=== PATIENT | female | born 1985 | race Caucasian/White ===

== ENCOUNTER 2017-12-11 18:55 | Emergency (ER) | payer SELFPAY ==
[2017-12-11 18:58] VITALS: BP 140/85; PULSE 59; RESP 14; TEMP 36.6; O2SAT 99
--- NOTE | 2017-12-11 19:13 | ED.HA ---
HPI - Headache <Kandi Sarabia PA-C - Last Filed: 12/11/17 22:22> General Chief Complaint: Headache Stated Complaint: MIGRAINE Time Seen by Provider: 12/11/17 19:08 Source: patient Mode of arrival: ambulatory Limitations: no limitations History of Present Illness HPI Narrative: This 32-year-old female comes in due to intractable migraine headache. She states that this started about a week ago, usually can take Excedrin migraine and ibuprofen and function see says, but this has gradually gotten worse to the point that she can do daily activities now, has started to have blurred vision which she states typically triggers her to come into the ED. She states she has light sensitivity and sound sensitivity. She had some vomiting yesterday, none today, but has persistent nausea and has not eaten today due to this. She states her headache is bilateral, a little bit more noticeable on the left. She states this is typical of her severe migraine. She denies any recent fever, head trauma or illness. States that she has a little bit of sinus congestion typical of her allergies but no other new symptoms with this. She denies any possibility of stating she is reliable with her OCP and just started her new pack 2 days ago Related Data Previous Rx's Medication Instructions Recorded amoxicillin-pot clavulanate 875 mg PO BID #20 tab 03/07/17 [Augmentin] Allergies Allergy/AdvReac Type Severity Reaction Status Date / Time promethazine [From PHENERGAN] Allergy Unknown Verified 12/11/17 20:36 anti-nausea medications Allergy Unknown Uncoded 12/11/17 20:36 Review of Systems <Kandi Sarabia PA-C - Last Filed: 12/11/17 22:22> Review of Systems All systems reviewed & are unremarkable except as noted in HPI and below Exam <Kandi Sarabia PA-C - Last Filed: 12/11/17 22:22> Narrative Exam Narrative: GENERAL APPEARANCE: Patient resting in a dark room comfortably, in no distress. HEENT: PERRL, EOMI, normal TMs and oropharynx NECK: Supple, no masses LUNGS: Clear to auscultation bilaterally. HEART: Rate and rhythm regular without murmur, normal S1 and S2, no S3 or S4. NEUROLOGIC: Alert and oriented, normal speech and coordination. MUSCULOSKELETAL: Full Csp AROM Initial Vital Signs Initial Vital Signs: Vital Signs Temperature 97.8 F 12/11/17 18:58 Pulse Rate 59 L 12/11/17 18:58 Respiratory Rate 14 12/11/17 18:58 Blood Pressure 140/85 H 12/11/17 18:58 Pulse Oximetry 99 12/11/17 18:58 <Jamari Triana MD - Last Filed: 12/12/17 06:58> Initial Vital Signs Initial Vital Signs: Vital Signs Temperature 97.8 F 12/11/17 18:58 Pulse Rate 59 L 12/11/17 18:58 Respiratory Rate 14 12/11/17 18:58 Blood Pressure 140/85 H 12/11/17 18:58 Pulse Oximetry 99 12/11/17 18:58 Course <Kandi Sarabia PA-C - Last Filed: 12/11/17 22:22> Additional Information: Patient is feeling much improved in terms of nausea and headache prior to her departure and feels like she will be able to rest comfortably Orders Ordered: Discontinued Medications Acetaminophen (Tylenol) 650 mg PO NOW ONE Stop: 12/11/17 20:21 Last Admin: 12/11/17 20:40 Dose: 650 mg Sodium Chloride (Normal Saline 0.9%) 1,000 mls @ 1,000 mls/hr IV BOLUS ONE Stop: 12/11/17 20:25 Last Infusion: 12/11/17 21:12 Dose: 0 mls/hr Admin: 12/11/17 19:45 Dose: 1,000 mls/hr Ketorolac Tromethamine (Toradol) 30 mg IV NOW ONE Stop: 12/11/17 19:27 Last Admin: 12/11/17 19:46 Dose: 30 mg Metoclopramide HCl (Reglan) 10 mg IV NOW ONE Stop: 12/11/17 19:27 Last Admin: 12/11/17 19:46 Dose: 10 mg Tramadol HCl (Ultram) 50 mg PO NOW ONE Stop: 12/11/17 20:21 Last Admin: 12/11/17 20:40 Dose: 50 mg Vital Signs - 8 hr 12/11/17 18:58 12/11/17 22:03 Temperature 97.8 F Pulse Rate 59 L 66 Respiratory Rate 14 16 Blood Pressure 140/85 H 142/88 H Pulse Oximetry 99 99 <Jamari Triana MD - Last Filed: 12/12/17 06:58> Orders Ordered: Discontinued Medications Acetaminophen (Tylenol) 650 mg PO NOW ONE Stop: 12/11/17 20:21 Last Admin: 12/11/17 20:40 Dose: 650 mg Sodium Chloride (Normal Saline 0.9%) 1,000 mls @ 1,000 mls/hr IV BOLUS ONE Stop: 12/11/17 20:25 Last Infusion: 12/11/17 21:12 Dose: 0 mls/hr Admin: 12/11/17 19:45 Dose: 1,000 mls/hr Ketorolac Tromethamine (Toradol) 30 mg IV NOW ONE Stop: 12/11/17 19:27 Last Admin: 12/11/17 19:46 Dose: 30 mg Metoclopramide HCl (Reglan) 10 mg IV NOW ONE Stop: 12/11/17 19:27 Last Admin: 12/11/17 19:46 Dose: 10 mg Tramadol HCl (Ultram) 50 mg PO NOW ONE Stop: 12/11/17 20:21 Last Admin: 12/11/17 20:40 Dose: 50 mg Vital Signs - 8 hr 12/11/17 18:58 12/11/17 22:03 Temperature 97.8 F Pulse Rate 59 L 66 Respiratory Rate 14 16 Blood Pressure 140/85 H 142/88 H Pulse Oximetry 99 99 Discharge Plan Departure Patient Disposition: Home, Self-Care Clinical Impression: Headache, migraine Discharge Date/Time: 12/11/17 22:05 Interventions: ED Discharge Assessment Last Done: 12/11/17 22:03 Instructions: DI for Migraine Activity Restrictions/Additional Instructions: Return if you have acutely worsening or new symptoms, otherwise please rest in a quiet dark place until your symptoms are better. Continue your usual medicines Prescriptions: No Action amoxicillin-pot clavulanate [Augmentin] 875 MG/125 MG tablet 875 mg PO BID Qty: 20 RF: 0 <Jamari Triana MD - Last Filed: 12/12/17 06:58> Cosign ED Attending Cosignature Attestation: I was present in the ER at the time of this patient's care, I was available for consultation or to see the patient if need be. I agree with the content of the medical record and the disposition.
[2017-12-11] MEDS: SODIUM CHLORIDE 0.9% 1,000 ML 1000 ML IV (19:45)
[2017-12-11] MEDS: KETOROLAC 60 MG/2 ML VIAL 30 MG IV (19:46)
[2017-12-11] MEDS: METOCLOPRAMIDE 10 MG/2 ML INJ IV (19:46)
--- NOTE | 2017-12-11 19:59 | PC.NURSE ---
pt is calm and cooperative in a darkened room supine on stretcher with sun glasses on. Mother at bedside. Pt reports a headache starting a week ago. reports stressors i her life causing headache. pt denies sob, chest pain, weakness, vomiting. pt requested and given ice pack for head/back of neck.
[2017-12-11] MEDS: TRAMADOL 50 MG TABLET PO (20:40)
[2017-12-11] MEDS: ACETAMINOPHEN 325 MG TABLET 650 MG PO (20:40)
--- NOTE | 2017-12-11 21:24 | PC.NURSE ---
pt reports forgetting to tell staff she is allergic to tape. reports tegaderm starting to itch. provider notified. verbal order recieved for IV dc. gauze and coban applied to IV site. no redness or lesions noted before coban placed.
[2017-12-11 22:03] VITALS: BP 142/88; PULSE 66; RESP 16; O2SAT 99
== END 2017-12-11 22:05 | disposition home or self-care (01) ==
PROVIDERS: Emergency Provider Internal Medicine
DX: G43.909 Migraine, unspecified, not intractable, without status migrainosus (principal)
CPT/HCPCS: 96361; 96374; 96375; 99283; 99284; J1885; J2765

== ENCOUNTER 2018-04-16 16:03 | Emergency (ER) | payer SELFPAY ==
[2018-04-16 16:07] VITALS: BP 132/82; PULSE 64; RESP 20; TEMP 36.8; O2SAT 100
--- NOTE | 2018-04-16 16:11 | DI.RAD.S_ITS ---
PROCEDURE: XR KNEE LT 3V INDICATIONS: GLF TECHNIQUE: 3 views of the knee were acquired. COMPARISON: [facility], CR, XR ANKLE LT MIN 3V, 04/16/2018, 16:15. FINDINGS: Bones: No fractures or dislocations. No suspicious bony lesions. Soft tissues: No joint effusion. No suspicious soft tissue calcifications. IMPRESSION: Normal knee plain films. Dictated by: Elier Monterroso M.D. on 04/16/2018 at 15:27 Approved by: Elier Monterroso M.D. on 04/16/2018 at 15:28
--- NOTE | 2018-04-16 16:11 | DI.RAD.S_ITS ---
PROCEDURE: XR ANKLE LT MIN 3V INDICATIONS: medial ankle pain TECHNIQUE: 3 views of the ankle were acquired. COMPARISON: None. FINDINGS: Bones: On the lateral view, there can be seen a mildly displaced fracture of the navicular bone. This is poorly localized on the other 2 images. No additional bony injury is seen. The talar dome demonstrates no robe abnormality. No suspicious lytic or blastic lesions are seen. Small plantar and Achilles calcaneal spurs are seen. Soft tissues: No tibiotalar joint effusion. Achilles tendon appears normal. IMPRESSION: Apparent mildly displaced fracture of the navicular bone seen on one image. Please correlate with focal tenderness. If it would be helpful for clinical management decision making, please consider a dedicated ankle CT for further evaluation. Dictated by: Elier Monterroso M.D. on 04/16/2018 at 15:25 Approved by: Elier Monterroso M.D. on 04/16/2018 at 15:27
--- NOTE | 2018-04-16 17:14 | ED.LOWEXIN ---
HPI - Extremity Injury (Lower) <SHIMON Coffey - Last Filed: 04/16/18 22:05> General Chief Complaint: Extremity Injury, Lower Stated Complaint: FELL LEFT KNEE AND ANKLE PAIN Time Seen by Provider: 04/16/18 16:51 Source: patient Mode of arrival: wheelchair Limitations: no limitations History of Present Illness HPI Narrative: 33-year-old female with history of migraines that is an everyday smoker here for complaint of pain to her left knee and her left ankle. She states that she was walking up her driveway and was stepped onto her porch that has a small left and caudate with her left foot causing her to have ground level fall. She reports she thinks she rolled her left ankle and may have twisted her left knee. She reports swelling to the left ankle and also left knee. Increased pain with weight-bearing. She denies any other injuries at this timeframe. Denies any other complaints. Related Data Previous Rx's Medication Instructions Recorded hydrocodone-acetaminophen [[place]] 1 tab PO Q6H PRN #15 tab 04/16/18 Allergies Allergy/AdvReac Type Severity Reaction Status Date / Time promethazine [From PHENERGAN] Allergy Unknown Anxiety Verified 04/16/18 17:27 anti-nausea medications Allergy Unknown Uncoded 12/11/17 20:36 Review of Systems <SHIMON Coffey - Last Filed: 04/16/18 22:05> Constitutional Denies chills, Denies fever(s), Denies lethargy and Denies weakness Eyes Denies change in vision, Denies eye discharge, Denies irritation and Denies loss of vision ENT Ears, Nose, Mouth, and Throat: Denies change in voice, Denies neck pain and Denies sore throat Cardiovascular Denies chest pain, Denies irregular heart rhythm, Denies lightheadedness, Denies palpitations, Denies dyspnea, Denies dyspnea on exertion and Denies orthopnea Respiratory Denies cough, Denies dyspnea, Denies dyspnea on exertion and Denies wheezing Gastrointestinal Gastrointestinal: Denies abdominal pain, Denies change in bowel habits, Denies diarrhea, Denies nausea and Denies vomiting Genitourinary Denies hematuria, Denies flank pain, Denies urinary incontinence and Denies urinary urgency Musculoskeletal Denies neck pain Comments: Left knee and ankle pain Integumentary/Breasts Denies pruritus, Denies erythema, Denies rash and Denies wounds Neurologic Denies confusion, Denies loss of vision and Denies weakness Psychiatric Denies anxiety, Denies confusion, Denies depression, Denies homicidal ideation and Denies suicidal ideation Endocrine Denies palpitations Hematologic/Lymphatic Denies easy bruising Allergic/Immunologic Denies wheezing Exam <SHIMON Coffey - Last Filed: 04/16/18 22:05> Initial Vital Signs Initial Vital Signs: Vital Signs Temperature 98.2 F 04/16/18 16:07 Pulse Rate 64 04/16/18 16:07 Respiratory Rate 20 04/16/18 16:07 Blood Pressure 132/82 04/16/18 16:07 Pulse Oximetry 100 04/16/18 16:07 Const General: cooperative and well developed Nutritional Appearance: well nourished Orientation: alert, awake, oriented x3 and not confused HENMT Mouth: oral mucosae normal and moist mucous membranes Eyes Conjunctivae: conjunctivae normal Sclera: sclerae normal Pupils: PERRL EOM: EOM intact bilaterally Resp Effort & Inspection: normal respiratory effort, able to speak in complete sentences, no respiratory distress and no use of accessory muscles Auscultation: clear to auscultation bilaterally, no rales, no rhonchi and no wheezes Cardio Rate: regular rate Rhythm: regular rhythm Heart Sounds: no click, no gallops, no murmurs and no rubs Skin General: no rashes or lesions noted, No jaundice and No petechiae Neuro General: alert, oriented x3, gait normal and no focal motor deficits Speech: speech normal Extrem Other: Left knee with tenderness mostly to the medial aspect of the left knee. Slight amount of swelling. No ecchymosis. No deformities. Negative anterior-posterior drawer sign. Negative varus and valgus stress test. Left ankle with swelling and tenderness over the dorsal medial aspect of the left ankle. Slight amount ecchymosis. No deformities. No open lesions. Distal sensation is intact. Distal pulses are intact. Distal range of motion is intact. <Tato Jama DO - Last Filed: 04/17/18 00:07> Initial Vital Signs Initial Vital Signs: Vital Signs Temperature 98.2 F 04/16/18 16:07 Pulse Rate 64 04/16/18 16:07 Respiratory Rate 20 04/16/18 16:07 Blood Pressure 132/82 04/16/18 16:07 Pulse Oximetry 100 04/16/18 16:07 Course <SHIMON Coffey - Last Filed: 04/16/18 22:05> Orders Ordered: ED Orders 04/16/18 16:11 XR ankle LT min 3V Stat XR knee LT 3V Stat Discontinued Medications Hydrocodone Bitart/Acetaminophen ([place] 5/325) 1 tab PO NOW ONE Stop: 04/16/18 17:29 Last Admin: 04/16/18 17:56 Dose: 1 tab Ondansetron HCl (Zofran Odt) 4 mg PO NOW ONE Stop: 04/16/18 17:26 Last Admin: 04/16/18 17:27 Dose: 4 mg Vital Signs - 8 hr 04/16/18 19:00 Pulse Rate 50 L Respiratory Rate 16 Blood Pressure 124/70 Pulse Oximetry 100 <Tato Jama DO - Last Filed: 04/17/18 00:07> Orders Ordered: ED Orders 04/16/18 16:11 XR ankle LT min 3V Stat XR knee LT 3V Stat Discontinued Medications Hydrocodone Bitart/Acetaminophen ([place] 5/325) 1 tab PO NOW ONE Stop: 04/16/18 17:29 Last Admin: 04/16/18 17:56 Dose: 1 tab Ondansetron HCl (Zofran Odt) 4 mg PO NOW ONE Stop: 04/16/18 17:26 Last Admin: 04/16/18 17:27 Dose: 4 mg Vital Signs - 8 hr 04/16/18 19:00 Pulse Rate 50 L Respiratory Rate 16 Blood Pressure 124/70 Pulse Oximetry 100 MDM - Extremity Injury (Lower) <SHIMON Coffey - Last Filed: 04/16/18 22:05> Imaging Data Left knee : Radiologist's impression: [address] [address] XRay Report Signed Patient: Charmaine Lindquist [facility]#: [id number] : 1985Acct:[id number] Age/Sex: 33 / FDate of Service: 04/16/18 Loc: ED Accession Number: [id number] Procedure: XR knee LT 3V Ordering Provider: Meme Atkins MD PROCEDURE: XR KNEE LT 3V INDICATIONS: GLF TECHNIQUE: 3 views of the knee were acquired. COMPARISON: [facility], CR, XR ANKLE LT MIN 3V, 04/16/2018, 16:15. FINDINGS: Bones: No fractures or dislocations. No suspicious bony lesions. Soft tissues: No joint effusion. No suspicious soft tissue calcifications. IMPRESSION: Normal knee plain films. Dictated by: Elier Monterroso M.D. on 04/16/2018 at 15:27 Approved by: Elier Monterroso M.D. on 04/16/2018 at 15:28 Left ankle : Radiologist's impression: XRay Report Signed Patient: Charmaine Lindquist [facility]#: [id number] : 1985Acct:[id number] Age/Sex: 33 / FDate of Service: 04/16/18 Loc: ED Accession Number: [id number] Procedure: XR ankle LT min 3V Ordering Provider: Meme Atkins MD PROCEDURE: XR ANKLE LT MIN 3V INDICATIONS: medial ankle pain TECHNIQUE: 3 views of the ankle were acquired. COMPARISON: None. FINDINGS: Bones: On the lateral view, there can be seen a mildly displaced fracture of the navicular bone. This is poorly localized on the other 2 images. No additional bony injury is seen. The talar dome demonstrates no robe abnormality. No suspicious lytic or blastic lesions are seen. Small plantar and Achilles calcaneal spurs are seen. Soft tissues: No tibiotalar joint effusion. Achilles tendon appears normal. IMPRESSION: Apparent mildly displaced fracture of the navicular bone seen on one image. Please correlate with focal tenderness. If it would be helpful for clinical management decision making, please consider a dedicated ankle CT for further evaluation. Dictated by: Elier Monterroso M.D. on 04/16/2018 at 15:25 Approved by: Elier Monterroso M.D. on 04/16/2018 at 15:27 [facility] Narrative Medical decision making narrative: X-ray the left knee was obtained was negative for any acute fractures or dislocations. Signs symptoms presents as a sprain to the left knee. She is placed in a knee brace and crutches for nonweightbearing. Left ankle x-ray shows findings consistent with fracture to the left navicular bone patient is tender to the dorsal/medial aspect of left ankle. She is placed in a posterior splint. Discussed case with Dr. Choi orthopedics who will follow up with patient next week. Patient to call their office tomorrow to schedule follow-up appointment. [id number] Tylenol or Motrin as needed for any discomfort. Ice and elevation help with any swelling. [place] is prescribed for breakthrough pain. For any worsening symptoms return to the emergency room. Discharge Plan Departure Patient Disposition: Home Clinical Impression: Left knee sprain, Ankle fracture, left Discharge Date/Time: 04/16/18 19:02 Interventions: ED Discharge Assessment Last Done: 04/16/18 19:00 Instructions: DI for Ankle Fracture Activity Restrictions/Additional Instructions: X-ray the left knee was obtained and was negative for any fractures or dislocations. Signs and symptoms presents as a sprain to the left knee. X-ray the left ankle was obtained and shows a possible fracture to the left ankle. You have been placed in a splint and a knee immobilizer use as directed for comfort and support. Year provided with crutches for nonweightbearing. Call Orthopedics office tomorrow to schedule follow-up appointment. Use [id number] Tylenol or Motrin as needed for any discomfort. [place] is prescribed for any breakthrough pain also use as directed. No driving while on the [place]. For any worsening symptoms return to the emergency room. Prescriptions: New hydrocodone-acetaminophen [[place]] 5-325 mg tablet 1 tab PO Q6H PRN (Reason: pain) Qty: 15 RF: 0 Referrals: Jeffrey Choi MD [Physician] - Stand Alone Forms: Work/School Restrictions <Tato Jama DO - Last Filed: 04/17/18 00:07> [facility] ED Attending Grisel Attestation: I was immediately available in the department for consultation. Documentation has been reviewed. I agree with assessment and plan.
[2018-04-16] MEDS: ONDANSETRON 4 MG ODT PO (17:27)
--- NOTE | 2018-04-16 17:29 | ED_ITS ---
HPI - Extremity Injury (Lower) <SHIMON Coffey - Last Filed: 04/16/18 22:05> General Chief Complaint: Extremity Injury, Lower Stated Complaint: FELL LEFT KNEE AND ANKLE PAIN Time Seen by Provider: 04/16/18 16:51 Source: patient Mode of arrival: wheelchair Limitations: no limitations History of Present Illness HPI Narrative: 33-year-old female with history of migraines that is an everyday smoker here for complaint of pain to her left knee and her left ankle. She states that she was walking up her driveway and was stepped onto her porch that has a small left and caudate with her left foot causing her to have ground level fall. She reports she thinks she rolled her left ankle and may have twisted her left knee. She reports swelling to the left ankle and also left knee. Increased pain with weight-bearing. She denies any other injuries at this timeframe. Denies any other complaints. Related Data Previous Rx's Medication Instructions Recorded hydrocodone-acetaminophen [[place]] 1 tab PO Q6H PRN #15 tab 04/16/18 Allergies Allergy/AdvReac Type Severity Reaction Status Date / Time promethazine [From PHENERGAN] Allergy Unknown Anxiety Verified 04/16/18 17:27 anti-nausea medications Allergy Unknown Uncoded 12/11/17 20:36 Review of Systems <SHIMON Coffey - Last Filed: 04/16/18 22:05> Constitutional Denies chills, Denies fever(s), Denies lethargy and Denies weakness Eyes Denies change in vision, Denies eye discharge, Denies irritation and Denies loss of vision ENT Ears, Nose, Mouth, and Throat: Denies change in voice, Denies neck pain and Denies sore throat Cardiovascular Denies chest pain, Denies irregular heart rhythm, Denies lightheadedness, Denies palpitations, Denies dyspnea, Denies dyspnea on exertion and Denies orthopnea Respiratory Denies cough, Denies dyspnea, Denies dyspnea on exertion and Denies wheezing Gastrointestinal Gastrointestinal: Denies abdominal pain, Denies change in bowel habits, Denies diarrhea, Denies nausea and Denies vomiting Genitourinary Denies hematuria, Denies flank pain, Denies urinary incontinence and Denies urinary urgency Musculoskeletal Denies neck pain Comments: Left knee and ankle pain Integumentary/Breasts Denies pruritus, Denies erythema, Denies rash and Denies wounds Neurologic Denies confusion, Denies loss of vision and Denies weakness Psychiatric Denies anxiety, Denies confusion, Denies depression, Denies homicidal ideation and Denies suicidal ideation Endocrine Denies palpitations Hematologic/Lymphatic Denies easy bruising Allergic/Immunologic Denies wheezing Exam <SHIMON Coffey - Last Filed: 04/16/18 22:05> Initial Vital Signs Initial Vital Signs: Vital Signs Temperature 98.2 F 04/16/18 16:07 Pulse Rate 64 04/16/18 16:07 Respiratory Rate 20 04/16/18 16:07 Blood Pressure 132/82 04/16/18 16:07 Pulse Oximetry 100 04/16/18 16:07 Const General: cooperative and well developed Nutritional Appearance: well nourished Orientation: alert, awake, oriented x3 and not confused HENMT Mouth: oral mucosae normal and moist mucous membranes Eyes Conjunctivae: conjunctivae normal Sclera: sclerae normal Pupils: PERRL EOM: EOM intact bilaterally Resp Effort & Inspection: normal respiratory effort, able to speak in complete sentences, no respiratory distress and no use of accessory muscles Auscultation: clear to auscultation bilaterally, no rales, no rhonchi and no wheezes Cardio Rate: regular rate Rhythm: regular rhythm Heart Sounds: no click, no gallops, no murmurs and no rubs Skin General: no rashes or lesions noted, No jaundice and No petechiae Neuro General: alert, oriented x3, gait normal and no focal motor deficits Speech: speech normal Extrem Other: Left knee with tenderness mostly to the medial aspect of the left knee. Slight amount of swelling. No ecchymosis. No deformities. Negative anterior- posterior drawer sign. Negative varus and valgus stress test. Left ankle with swelling and tenderness over the dorsal medial aspect of the left ankle. Slight amount ecchymosis. No deformities. No open lesions. Distal sensation is intact. Distal pulses are intact. Distal range of motion is intact. <Tato Jama DO - Last Filed: 04/17/18 00:07> Initial Vital Signs Initial Vital Signs: Vital Signs Temperature 98.2 F 04/16/18 16:07 Pulse Rate 64 04/16/18 16:07 Respiratory Rate 20 04/16/18 16:07 Blood Pressure 132/82 04/16/18 16:07 Pulse Oximetry 100 04/16/18 16:07 Course <SHIMON Coffey - Last Filed: 04/16/18 22:05> Orders Ordered: ED Orders 04/16/18 16:11 XR ankle LT min 3V Stat XR knee LT 3V Stat Discontinued Medications Hydrocodone Bitart/Acetaminophen ([place] 5/325) 1 tab PO NOW ONE Stop: 04/16/18 17:29 Last Admin: 04/16/18 17:56 Dose: 1 tab Ondansetron HCl (Zofran Odt) 4 mg PO NOW ONE Stop: 04/16/18 17:26 Last Admin: 04/16/18 17:27 Dose: 4 mg Vital Signs - 8 hr 04/16/18 19:00 Pulse Rate 50 L Respiratory Rate 16 Blood Pressure 124/70 Pulse Oximetry 100 <Tato Jama DO - Last Filed: 04/17/18 00:07> Orders Ordered: ED Orders 04/16/18 16:11 XR ankle LT min 3V Stat XR knee LT 3V Stat Discontinued Medications Hydrocodone Bitart/Acetaminophen ([place] 5/325) 1 tab PO NOW ONE Stop: 04/16/18 17:29 Last Admin: 04/16/18 17:56 Dose: 1 tab Ondansetron HCl (Zofran Odt) 4 mg PO NOW ONE Stop: 04/16/18 17:26 Last Admin: 04/16/18 17:27 Dose: 4 mg Vital Signs - 8 hr 04/16/18 19:00 Pulse Rate 50 L Respiratory Rate 16 Blood Pressure 124/70 Pulse Oximetry 100 MDM - Extremity Injury (Lower) <SHIMON Coffey - Last Filed: 04/16/18 22:05> Imaging Data Left knee : Radiologist's impression: [address] [address] XRay Report Signed Patient: Charmaine Lindquist BANNER#: [id number] : 1985Acct:[id number] Age/Sex: 33 / FDate of Service: 04/16/18 Loc: ED Accession Number: [id number] Procedure: XR knee LT 3V Ordering Provider: Meme Atkins MD PROCEDURE: XR KNEE LT 3V INDICATIONS: GLF TECHNIQUE: 3 views of the knee were acquired. COMPARISON: [facility], CR, XR ANKLE LT MIN 3V, 04/16/2018, 16:15. FINDINGS: Bones: No fractures or dislocations. No suspicious bony lesions. Soft tissues: No joint effusion. No suspicious soft tissue calcifications. IMPRESSION: Normal knee plain films. Dictated by: Elier Monterroso M.D. on 04/16/2018 at 15:27 Approved by: Elier Monterroso M.D. on 04/16/2018 at 15:28 Left ankle : Radiologist's impression: XRay Report Signed Patient: Charmaine Lindquist BANNER#: [id number] : 1985Acct:[id number] Age/Sex: 33 / FDate of Service: 04/16/18 Loc: ED Accession Number: [id number] Procedure: XR ankle LT min 3V Ordering Provider: Meme Atkins MD PROCEDURE: XR ANKLE LT MIN 3V INDICATIONS: medial ankle pain TECHNIQUE: 3 views of the ankle were acquired. COMPARISON: None. FINDINGS: Bones: On the lateral view, there can be seen a mildly displaced fracture of the navicular bone. This is poorly localized on the other 2 images. No additional bony injury is seen. The talar dome demonstrates no robe abnormality. No suspicious lytic or blastic lesions are seen. Small plantar and Achilles calcaneal spurs are seen. Soft tissues: No tibiotalar joint effusion. Achilles tendon appears normal. IMPRESSION: Apparent mildly displaced fracture of the navicular bone seen on one image. Please correlate with focal tenderness. If it would be helpful for clinical management decision making, please consider a dedicated ankle CT for further evaluation. Dictated by: Elier Monterroso M.D. on 04/16/2018 at 15:25 Approved by: Elier Monterroso M.D. on 04/16/2018 at 15:27 [facility] Narrative Medical decision making narrative: X-ray the left knee was obtained was negative for any acute fractures or dislocations. Signs symptoms presents as a sprain to the left knee. She is placed in a knee brace and crutches for nonweightbearing. Left ankle x-ray shows findings consistent with fracture to the left navicular bone patient is tender to the dorsal/medial aspect of left ankle. She is placed in a posterior splint. Discussed case with Dr. Choi orthopedics who will follow up with patient next week. Patient to call their office tomorrow to schedule follow-up appointment. [id number] Tylenol or Motrin as needed for any discomfort. Ice and elevation help with any swelling. Creede is prescribed for breakthrough pain. For any worsening symptoms return to the emergency room. Discharge Plan Departure Patient Disposition: Home Clinical Impression: Left knee sprain, Ankle fracture, left Discharge Date/Time: 04/16/18 19:02 Interventions: ED Discharge Assessment Last Done: 04/16/18 19:00 Instructions: DI for Ankle Fracture Activity Restrictions/Additional Instructions: X-ray the left knee was obtained and was negative for any fractures or dislocations. Signs and symptoms presents as a sprain to the left knee. X-ray the left ankle was obtained and shows a possible fracture to the left ankle. You have been placed in a splint and a knee immobilizer use as directed for comfort and support. Year provided with crutches for nonweightbearing. Call Orthopedics office tomorrow to schedule follow-up appointment. Use over-the- counter Tylenol or Motrin as needed for any discomfort. Creede is prescribed for any breakthrough pain also use as directed. No driving while on the Creede. For any worsening symptoms return to the emergency room. Prescriptions: New hydrocodone-acetaminophen [Creede] 5-325 mg tablet 1 tab PO Q6H PRN (Reason: pain) Qty: 15 RF: 0 Referrals: Jeffrey Choi MD [Physician] - Stand Alone Forms: Work/School Restrictions <Tato Jama DO - Last Filed: 04/17/18 00:07> [facility] ED Attending Grisel Attestation: I was immediately available in the department for consultation. Documentation has been reviewed. I agree with assessment and plan.
[2018-04-16] MEDS: HYDROCODONE/ACET 5/325 TABLET 1 TAB PO (17:56)
--- NOTE | 2018-04-16 18:57 | PC.NURSE ---
related to patients home environment and need to be non weight bearing on the same leg that her broken ankle is on we decided not to splint her left knee b/c she needs to move it. She has a knee immobilizer at home and while she is resting on the couch or in bed will wear the knee immobilizer. I let Cresencio ROBINS know of the plan.
[2018-04-16 19:00] VITALS: BP 124/70; PULSE 50; RESP 16; O2SAT 100
== END 2018-04-16 19:02 | disposition home or self-care (01) ==
PROVIDERS: Emergency Provider Nurse Practitioner Family
DX: S83.92XA Sprain of unspecified site of left knee, initial encounter (principal); S82.892A Other fracture of left lower leg, initial encounter for closed fracture; W01.0XXA Fall on same level from slipping, tripping and stumbling without subsequent striking against object, initial encounter
CPT/HCPCS: 29515; 73562; 73610; 99283

== ENCOUNTER 2018-07-12 18:59 | Emergency (ER) | payer OTHER, MEDICAID, SELFPAY ==
[2018-07-12 19:05] VITALS: BP 134/88; PULSE 82; RESP 18; TEMP 36.8; O2SAT 98; BMI 44.6
--- NOTE | 2018-07-12 21:29 | ED.HA ---
HPI - Headache General Chief Complaint: Headache Stated Complaint: migraine 3 weeks, light sensitive, nausea Time Seen by Provider: 07/12/18 21:23 Source: patient Mode of arrival: ambulatory Limitations: no limitations History of Present Illness HPI Narrative: Patient is a 33-year-old female who presents with migraine headache. She says this headache has been ongoing for a number of weeks progressively getting worse. No fever neck pain. She is quite sensitive to light. She used to be on Topamax to help prevent the headaches however she has been out of insurance and just getting back on it. She has been taking Tylenol and ibuprofen without any relief. In the past she has taken Toradol and Imitrex neither 1 which have helped. This is a fairly typical migraine for her. MD Complaint: migraine Onset (ago): week(s) Onset description: gradual Location: frontal Severity: moderate Relieving factors: nothing Treatments prior to arrival: acetaminophen and ibuprofen Related Data Previous Rx's Medication Instructions Recorded hydrocodone-acetaminophen [[place]] 1 tab PO Q6H PRN #15 tab 04/16/18 Allergies Allergy/AdvReac Type Severity Reaction Status Date / Time promethazine [From PHENERGAN] Allergy Unknown Anxiety Verified 04/16/18 17:27 anti-nausea medications Allergy Unknown Uncoded 12/11/17 20:36 Review of Systems Review of Systems GENERAL: Denies chills, fatigue, malaise, fever, sweats, travel HEENT: Denies sinus pain, ear pain, sore throat, difficulty swallowing, neck pain RESPIRATORY: Denies dyspnea, cough, wheezing, hemoptysis, sputum. CARDIOVASCULAR: Denies chest pain, palpitations, orthopnea, edema GASTROINTESTINAL: Denies nausea, vomiting, abdominal pain, diarrhea, constipation, melena. : Denies dysuria, frequency, incontinence, hematuria, urinary retention, flank pain. MUSCULOSKELETAL: Denies weakness, joint pain, or bony pain SKIN: No rash, no erythema, no pruritus NEUROLOGIC: + Headache PSYCHIATRIC: No concerning psychosocial issues. 12 point review of systems is negative except for those stated above and HPI Constitutional Reports headache(s) Eyes Denies loss of vision ENT Ears, Nose, Mouth, and Throat: Denies vertigo, Denies dizziness and Reports headache(s) Neurologic Denies confusion, Denies vertigo, Denies dizziness, Reports headache(s) and Denies loss of vision Psychiatric Denies confusion PFSH Social History Smoking Status: Former smoker Social History Smoking Status: Former smoker Exam Initial Vital Signs Initial Vital Signs: Vital Signs Temperature 98.3 F 07/12/18 19:05 Pulse Rate 82 07/12/18 19:05 Respiratory Rate 18 07/12/18 19:05 Blood Pressure 134/88 07/12/18 19:05 Pulse Oximetry 98 07/12/18 19:05 GENERAL: overweight female sitting in dark room appears uncomfortable but no acute distress HEENT: Head atraumatic,EOMI, pupils reactive, face is symmetric, neck is supple CARDIOVASCULAR: Regular rate and rhythm without murmurs, rubs or gallops. RESPIRATORY: Breath sounds equal bilaterally, no wheezes rales or rhonchi. ABDOMEN: Soft, nontender. Normoactive bowel sounds all 4 quadrants. No guarding or rebound. EXTREMITIES: Normal range of motion, no clubbing or edema. Neurovascularly intact NEUROLOGICAL: Alert and oriented x4.Normal gait and speech. Cranial nerves II through XII grossly intact. moving all extremities director of payroll strength equal bilaterally SKIN: Warm, dry, no laceration, no petechiae, no rashes or lesions. Course Orders Ordered: Discontinued Medications Diphenhydramine HCl (Benadryl) 25 mg IV NOW ONE Stop: 07/12/18 21:38 Last Admin: 07/12/18 22:16 Dose: 25 mg Hydromorphone HCl (Dilaudid) 0.5 mg IV NOW ONE Stop: 07/12/18 23:05 Last Admin: 07/12/18 23:16 Dose: 0.5 mg Sodium Chloride (Normal Saline 0.9%) 1,000 mls @ 1,000 mls/hr IV BOLUS ONE Stop: 07/12/18 22:36 Last Infusion: 07/12/18 23:16 Dose: 0 mls/hr Admin: 07/12/18 22:16 Dose: 1,000 mls/hr Prochlorperazine (Compazine) 5 mg IV NOW ONE Stop: 07/12/18 21:38 Last Admin: 07/12/18 22:16 Dose: 5 mg Vital Signs - 8 hr 07/12/18 22:18 Pulse Rate 87 Respiratory Rate 15 Blood Pressure [Left Arm] 136/81 Pulse Oximetry 98 MDM - Headache MDM Narrative Medical decision making narrative: patient has had Toradol she overall is not feeling that much better. She is given Dilaudid she is now sleeping she says her pain is much better and feels like she is ready and able to go home. At this time this is a typical migraine headache for her ongoing for a number of weeks she is afebrile at this time does not indicate any further testing. Discharge Plan Departure Patient Disposition: Home Clinical Impression: Migraine Qualifiers: Migraine type: unspecified Status migrainosus presence: without status migrainosus Intractability: not intractable Qualified Code(s): G43.909 - Migraine, unspecified, not intractable, without status migrainosus Discharge Date/Time: 07/13/18 00:20 Interventions: ED Discharge Assessment Last Done: 07/13/18 00:18 Instructions: DI for Migraine Activity Restrictions/Additional Instructions: *You have been diagnosed with migraine headache *What to do: rest, increase fluids *Continue to take medications as directed *Follow up with your primary care provider in 2-3 days *Return to ER if you should have any new, worsening or concerning symptoms Prescriptions: No Action hydrocodone-acetaminophen [[place]] 5-325 mg tablet 1 tab PO Q6H PRN (Reason: pain) Qty: 15 RF: 0
[2018-07-12] MEDS: SODIUM CHLORIDE 0.9% 1,000 ML 1000 ML IV (22:16)
[2018-07-12] MEDS: PROCHLORPERAZINE 10 MG/2 ML VIAL 5 MG IV (22:16)
[2018-07-12] MEDS: diphenhydrAMINE 50 MG/ML VIAL 25 MG IV (22:16)
[2018-07-12 22:18] VITALS: BP 136/81; PULSE 87; RESP 15; O2SAT 98
[2018-07-12] MEDS: HYDROMORPHONE 1 MG INJ 0.5 MG IV (23:16)
== END 2018-07-13 00:20 | disposition home or self-care (01) ==
PROVIDERS: Emergency Provider Emergency Medicine
DX: G43.909 Migraine, unspecified, not intractable, without status migrainosus (principal)
CPT/HCPCS: 96361; 96374; 96375; 99283; 99284; J0780; J1170; J1200

== ENCOUNTER 2018-10-03 15:20 | Emergency (ER) | payer OTHER, MEDICAID, SELFPAY ==
[2018-10-03 15:24] VITALS: BP 144/89; PULSE 59; RESP 18; TEMP 36.9; O2SAT 99; BMI 47.8
[2018-10-03] MEDS: ONDANSETRON 4 MG ODT SL (16:40)
[2018-10-03] MEDS: HYDROMORPHONE 1 MG INJ IM (16:40)
[2018-10-03 17:06] VITALS: BP 127/84; PULSE 55; RESP 17; O2SAT 98
--- NOTE | 2018-10-03 18:50 | ED_ITS ---
HPI - Headache General Chief Complaint: Headache Stated Complaint: migraine Time Seen by Provider: 10/03/18 15:36 Source: patient and family Mode of arrival: ambulatory Limitations: no limitations History of Present Illness HPI Narrative: 33-year-old female nonsmoker with longstanding history of migraines and established care with local headache providers presents with a terrible generalized migraine over the past few days. She admits to photophobia, worsening with exertion and loud noise. She denies any focal neuro findings. She denies any injury nor fever or chills. She has taken all of her headache therapies that were suggested by her headache neurologist but continues to have pain. Historically under the circumstances the patient will receive 1 round of narcotics MD Complaint: headache and migraine Onset (ago): day(s) Onset description: gradual Location: diffuse Severity: severe Quality: aching and throbbing Relieving factors: rest and dark room Exacerbating factors: exertion, light and noise Associated symptoms: nausea Treatments prior to arrival: antiemetic and migraine medication Related Data Home Medications Medication Instructions Recorded Confirmed acetaminophen 325 mg tablet 325 mg PO Q4H PRN 08/09/18 08/09/18 desogestrel 0.15 mg-ethinyl 1 tab PO DAILY 08/09/18 08/09/18 estradiol 0.03 mg tablet ibuprofen 200 mg tablet 200 mg PO QID PRN 08/09/18 08/09/18 multivitamin tablet 1 tab PO DAILY 08/09/18 08/09/18 Previous Rx's Medication Instructions Recorded nortriptyline 10 mg capsule 10 mg PO BEDTIME #90 cap 08/09/18 rizatriptan 10 mg tablet 10 mg PO .COMPLEX #10 tab 08/09/18 verapamil 40 mg tablet 40 mg PO TID #90 tab 08/09/18 eletriptan 40 mg tablet 40 mg PO ONCE #10 tab 09/18/18 nortriptyline 10 mg capsule 10 mg PO BEDTIME #180 cap 09/18/18 ondansetron HCl 4 mg tablet 4 mg PO DAILY PRN 4 Days #20 tab 09/18/18 verapamil 40 mg tablet 40 mg PO TID #270 tab 09/18/18 Allergies Allergy/AdvReac Type Severity Reaction Status Date / Time promethazine [From PHENERGAN] Allergy Unknown Anxiety Verified 10/03/18 15:24 Review of Systems Constitutional Denies chills, Denies fever(s), Reports headache(s), Denies lethargy and Denies weakness Eyes Denies change in vision, Denies eye discharge, Denies irritation and Denies loss of vision ENT Ears, Nose, Mouth, and Throat: Denies change in voice, Reports headache(s), Denies neck pain and Denies sore throat Cardiovascular Denies chest pain, Denies irregular heart rhythm, Denies lightheadedness, Denies palpitations, Denies dyspnea, Denies dyspnea on exertion and Denies orthopnea Respiratory Denies cough, Denies dyspnea, Denies dyspnea on exertion and Denies wheezing Gastrointestinal Gastrointestinal: Denies abdominal pain, Denies change in bowel habits, Denies diarrhea, Denies nausea and Denies vomiting Genitourinary Denies hematuria, Denies flank pain, Denies urinary incontinence and Denies urinary urgency Musculoskeletal Denies neck pain Integumentary/Breasts Denies pruritus, Denies erythema, Denies rash and Denies wounds Neurologic Denies confusion, Reports headache(s), Denies loss of vision and Denies weakness Psychiatric Denies anxiety, Denies confusion, Denies depression, Denies homicidal ideation and Denies suicidal ideation Endocrine Denies palpitations Hematologic/Lymphatic Denies easy bruising Allergic/Immunologic Denies wheezing PFSH Medical History Depression with anxiety (Chronic) Migraine headache (Chronic) Panic attack (Chronic) Social History Smoking Status: Former smoker Social History Smoking Status: Former smoker Exam Narrative Exam Narrative: GENERAL: This is a well-nourished, well-developed patient, in mild distress. HEAD: Atraumatic. Normocephalic. No temporal or scalp tenderness. EYES: Pupils equal round and reactive. Extraocular motions intact. No scleral icterus. No injection or drainage. ENT: Nose without bleeding, purulent drainage or septal hematoma. Throat without erythema, tonsillar hypertrophy or exudate. Uvula midline. Airway patent. NECK: Trachea midline. No JVD or lymphadenopathy. Supple, nontender, no meningeal signs. CARDIOVASCULAR: Regular rate and rhythm without murmurs, gallops, or rubs. RESPIRATORY: Clear to auscultation. Breath sounds equal bilaterally. No wheezes, rales, or rhonchi. GASTROINTESTINAL: Abdomen soft, non-tender, nondistended. No hepato- splenomegaly, or palpable masses. No guarding. EXTREMITIES: No clubbing, cyanosis, or edema. No joint tenderness, effusion, or edema noted. BACK: Nontender without deformity or crepitance. No flank tenderness. NEURO: AOx3. SKIN: No rash or erythema. NIH Stroke Scale 1a. LOC: Patient is alert and keenly responsive (0) 1b. LOC Questions: Patient answers both LOC questions accurately (0) 1c. LOC Commands: Patient performs both tasks correctly (0) 2. Best Gaze: Normal (0) 3. Visual: No visual loss (0) 4. Facial palsy: Normal symmetrical movements (0) 5. Motor arm: No drift (0) 6. Motor leg: No drift (0) 7. Limb ataxia: Absent (0) 8. Sensory: Normal (0) 9. Best language: No aphasia; normal (0) 10. Dysarthria: Normal (0) 11. Extinction and inattention: No abnormality (0) NIHSS: 0 Initial Vital Signs Initial Vital Signs: Vital Signs Temperature 98.4 F 10/03/18 15:24 Pulse Rate 59 L 10/03/18 15:24 Respiratory Rate 18 10/03/18 15:24 Blood Pressure 144/89 H 10/03/18 15:24 Pulse Oximetry 99 10/03/18 15:24 Course Orders Ordered: Discontinued Medications Hydromorphone HCl (Dilaudid) 1 mg IM NOW ONE Stop: 10/03/18 16:25 Last Admin: 10/03/18 16:40 Dose: 1 mg Ondansetron HCl (Zofran Odt) 4 mg SL NOW ONE Stop: 10/03/18 16:25 Last Admin: 10/03/18 16:40 Dose: 4 mg Vital Signs - 8 hr 10/03/18 15:24 10/03/18 17:06 Temperature 98.4 F Pulse Rate 59 L 55 L Respiratory Rate 18 17 Blood Pressure 144/89 H Blood Pressure [Left Arm] 127/84 Pulse Oximetry 99 98 MDM - Headache Differential Diagnosis Differential diagnosis: Likely migraine Medical Records Attestation: I reviewed the patient's medical records. Lab Data Attestation: I reviewed the patient's lab results. MDM Narrative Medical decision making narrative: Multiple etiologies for patient's symptoms considered including: [Migraine headache versus tension headache versus subarachnoid hemorrhage versus other] Patient's symptoms improved or duration of stay with above-stated therapies. Findings and discharge diagnosis discussed with patient/family followed by verbalization of understanding Return precautions discussed with patient/family whom verbalize understanding. Discharge Plan Departure Patient Disposition: Home Clinical Impression: Migraine Qualifiers: Migraine type: other Status migrainosus presence: without status migrainosus Intractability: not intractable Qualified Code(s): G43.809 - Other migraine, not intractable, without status migrainosus Discharge Date/Time: 10/03/18 17:27 Interventions: ED Discharge Assessment Last Done: 10/03/18 17:26 Instructions: DI for Migraine Activity Restrictions/Additional Instructions: *You have been diagnosed with [acute migraine headache] *What to do: * continue to take medications as directed *Follow up with your primary care provider in 2-3 days, call for an appointment. Let them know you were seen in the Emergency Department and that we ask that you be seen in follow up *Return to ER if you should have any new, worsening or concerning symptoms Prescriptions: No Action desogestrel-ethinyl estradiol [Isibloom] 0.15-0.03 mg tablet 1 tab PO DAILY RF: 0 multivitamin [Daily Multi-Vitamin] tablet 1 tab PO DAILY RF: 0 ibuprofen 200 mg tablet 200 mg PO QID PRNRF: 0 acetaminophen [Tylenol] 325 mg tablet 325 mg PO Q4H PRNRF: 0 rizatriptan 10 mg tablet 10 mg PO .COMPLEX Qty: 10 RF: 2 verapamil 40 mg tablet 40 mg PO TID Qty: 90 RF: 2 nortriptyline 10 mg capsule 10 mg PO BEDTIME Qty: 90 RF: 2 verapamil 40 mg tablet 40 mg PO TID Qty: 270 RF: 2 nortriptyline 10 mg capsule 10 mg PO BEDTIME Qty: 180 RF: 2 eletriptan 40 mg tablet 40 mg PO ONCE Qty: 10 RF: 3 ondansetron HCl 4 mg tablet 4 mg PO DAILY PRN (Reason: nausea and vomiting) 4 Days Qty: 20 RF: 3
== END 2018-10-03 17:27 | disposition home or self-care (01) ==
PROVIDERS: Emergency Provider Emergency Medicine
DX: G43.809 Other migraine, not intractable, without status migrainosus (principal); R11.10 Vomiting, unspecified; H53.149 Visual discomfort, unspecified
CPT/HCPCS: 96372; 99282; 99283; J1170

== ENCOUNTER → 2018-10-11 12:10 | Outpatient (CLI) | payer OTHER, MEDICAID, SELFPAY ==
[2018-10-11 12:40] LABS: Add Manual Diff / Slide Review NO; Basophils Absolute Auto 0 /uL (0-100); Basophils Percent Auto 0.6 % (0-2); Eosinophils Absolute Auto 100 /uL (0-450); Hematocrit 44.7 % (36-46); Hemoglobin 15.1 g/dL (12.0-16.0); Lymphocytes Absolute Auto 1200 /uL (1100-4500); Lymphocytes Percent Auto 18.9 % (25-40); Mean Corpuscular HGB Conc 33.6 % (30-36); Mean Corpuscular Hemoglobin 29.1 PG (26-34); Mean Corpuscular Volume 86.5 fL (80-100); Monocytes Absolute Auto 400 /uL (0-900); Monocytes Percent Auto 5.7 % (3-14); Neutrophils Absolute Auto 4700 /uL (1500-7000); Neutrophils Percent Auto 73.8 % (50-75); Platelet Count 206 X10^3/uL (150-400); Red Blood Cell Count 5.17 X10^6/uL (4.0-5.2); Red Cell Distribution Width 12.9 % (11.6-14.8); White Blood Cell Count 6.4 X10^3/uL (4.5-11.0)
[2018-10-11 13:05] LABS: Alanine Aminotransferase 21 IU/L (9-52); Albumin 4.4 g/dL (3.5-5.0); Albumin Globulin Ratio 1.5 (1.0-2.8); Alkaline Phosphatase 62 U/L (38-126); Aspartate Aminotransferase 19 IU/L (14-36); BUN Creatinine Ratio 17.1 (6-22); Bilirubin Total 0.6 mg/dL (0.2-1.3); Blood Urea Nitrogen 12 mg/dL (7-17); Calcium 9.3 mg/dL (8.4-10.2); Carbon Dioxide 23 mmol/L (22-32); Chloride 103 mmol/L (98-107); Cholesterol 228 mg/dL (140-199); Estimated Glomerular Filt Rate > 60.0 mL/min (>60); Glucose 87 mg/dL (70-100); HDL Cholesterol 52 mg/dL (40-60); HEMOLYSIS < 15 (0-50); LDL Cholesterol Calculated 156 mg/dL (<100); Potassium 4.6 mmol/L (3.4-5.1); Sodium 138 mmol/L (137-145); Total Protein 7.4 g/dL (6.3-8.2); Triglycerides 98 mg/dL (35-150)
[2018-10-11 14:28] LABS: Pregnancy Test Serum,Qual Negative (Negative)
== END ==
PROVIDERS: PCP Nurse Practitioner; Visit Provider Nurse Practitioner
DX: Z00.00 Encounter for general adult medical examination without abnormal findings (principal); R10.9 Unspecified abdominal pain; R11.2 Nausea with vomiting, unspecified
CPT/HCPCS: 36415; 80053; 80061; 84443; 84703; 85025

== ENCOUNTER → 2018-10-18 09:39 | Outpatient (CLI) | payer OTHER, MEDICAID, SELFPAY ==
--- NOTE | 2018-10-18 09:41 | DI.US.S_ITS ---
PROCEDURE: US ABDOMEN COMPLETE INDICATIONS: PAIN; NAUSEA, VOMITING TECHNIQUE: Real-time scanning was performed of the abdominal and retroperitoneal organs, with image documentation. COMPARISON: None. FINDINGS: Liver: Liver is normal in size and homogeneous in echotexture, diffusely hyperechoic consistent with fatty infiltration. Gallbladder: The gallbladder appears normal Biliary ducts: Intrahepatic bile ducts are non-dilated. Extrahepatic bile duct caliber measures 4.5 mm. Normal is 6-7 mm or less in diameter, or 10 mm or less post-cholecystectomy. Pancreas: Visualized portions of the pancreas are sonographically normal. Spleen: Spleen is normal in size and homogeneous in echotexture. Kidneys: Kidneys are normal in size and echotexture. Right kidney measures 12.2 cm long; left kidney measures 12.5 cm long. No hydronephrosis or nephrolithiasis. No solid masses. Aorta: Visualized aorta is normal in caliber at less than 3 cm. Iliacs: Proximal common iliac arteries are normal in caliber at less than 2.5 cm. IVC: Intrahepatic inferior vena cava is patent. Miscellaneous: No free abdominal fluid. IMPRESSION: Fatty infiltration within the liver, reducing the quality of visualization but no hepatic mass or biliary distention is found. The gallbladder appears normal. Source of current pain, nausea and vomiting is not seen. Dictated by: Truong Licona M.D. on 10/18/2018 at 11:23 Approved by: Truong Licona M.D. on 10/18/2018 at 11:24
--- NOTE | 2018-10-18 09:41 | DI.US.S_ITS ---
PROCEDURE: US PELVIC COMPLETE INDICATIONS: CRAMPING TECHNIQUE: Real-time scanning was performed of the pelvic organs, with image documentation. Additional endovaginal scanning was necessary due to incomplete visualization of the adnexal and endometrial structures by transabdominal scanning. COMPARISON: [facility], , PELVIC COMPLETE, 12/14/2016, 3:34. FINDINGS: Transabdominal scanning: Limited scanning through the kidneys shows no hydronephrosis. No pathologic free abdominal or pelvic fluid. Endovaginal scanning: Uterus: Uterus is normal in size at 7.1 x 3.5 x 5.1 cm. The endometrium measures 4.3 mm in combined thickness. Punctate echogenic foci non-endometrial complex likely related to residual blood products. Ovaries: Simple cyst involves the right ovary measuring 18 mm; otherwise ovaries are normal bilaterally. IMPRESSION: Simple right ovarian cyst. Dictated by: James SUAREZ Interpreted: Dulce Briggs MD on 10/18/2018 at 16:02 Approved by: Dulce Briggs M.D. on 10/18/2018 at 17:51
== END ==
PROVIDERS: PCP Nurse Practitioner; Visit Provider Nurse Practitioner
DX: Z00.00 Encounter for general adult medical examination without abnormal findings (principal); R10.9 Unspecified abdominal pain; R11.2 Nausea with vomiting, unspecified; K76.0 Fatty (change of) liver, not elsewhere classified; R25.2 Cramp and spasm; N83.291 Other ovarian cyst, right side
CPT/HCPCS: 76700; 76830; 76856

== ENCOUNTER → 2018-12-24 10:10 | Outpatient (CLI) | payer OTHER, MEDICAID, SELFPAY | PROVIDERS: PCP Nurse Practitioner; Visit Provider Physician Assistant | DX: L02.91 Cutaneous abscess, unspecified (principal) | CPT/HCPCS: 87070; 87077; 87147; 87186; 87205 ==

== ENCOUNTER → 2019-06-14 15:29 | Outpatient (CLI) | payer OTHER, MEDICAID, SELFPAY ==
--- NOTE | 2019-06-14 15:30 | DI.RAD.S_ITS ---
PROCEDURE: XR CHEST 2V INDICATIONS: cough TECHNIQUE: 2 views of the chest were acquired. COMPARISON: None. FINDINGS: Surgical changes and devices: None. Lungs and pleura: Lungs are clear. No pleural effusions or pneumothorax. Mediastinum: Mediastinal contours are normal. Heart size is normal. Bones and chest wall: No suspicious bony abnormalities. Soft tissues appear unremarkable. IMPRESSION: Expiratory chest demonstrating no cause for cough. Dictated by: James Jeffries RRA Interpreted: Dulce Briggs MD on 06/14/2019 at 15:59 Approved by: Dulce Briggs M.D. on 06/14/2019 at 17:34
== END ==
PROVIDERS: PCP Nurse Practitioner; Visit Provider Nurse Practitioner
DX: R05 Cough (principal); R06.02 Shortness of breath
CPT/HCPCS: 71046

== ENCOUNTER → 2019-09-02 10:30 | Outpatient (CLI) | payer OTHER, MEDICAID, SELFPAY | PROVIDERS: PCP Nurse Practitioner; Visit Provider Nurse Practitioner | DX: N89.8 Other specified noninflammatory disorders of vagina (principal); N94.9 Unspecified condition associated with female genital organs and menstrual cycle | CPT/HCPCS: 87070; 87077; 87147; 87205 ==

== ENCOUNTER 2020-02-24 00:58 | Emergency (ER) | payer OTHER, MEDICAID, SELFPAY ==
[2020-02-24 01:09] VITALS: BP 151/84; PULSE 102; RESP 20; O2SAT 99
--- NOTE | 2020-02-24 01:09 | ED_ITS ---
HPI - General Adult General Chief complaint: Abdominal Pain Stated complaint: abdominal pain, some nausea Time Seen by Provider: 02/24/20 01:07 Source: patient Mode of arrival: Ambulatory Limitations: no limitations History of Present Illness HPI narrative: 34-year-old female here for evaluation of bilateral lower abdomen with left being greater than right sharp abdominal pain. States that it started a couple days ago. She does not who was specific incidents that being the symptoms started space consistent/worsening since then. She also describes nausea. No vaginal bleeding. No urinary symptoms. No change in bowel habits. Not currently on control. Is scheduled to have her tubes tied in 2 weeks from now. Last menstrual cycles approximately 1 month ago. Has not tried anything for symptoms prior to arrival Related Data Home Medications Medication Instructions Recorded Confirmed acetaminophen 325 mg tablet 325 mg PO Q4H PRN 08/09/18 01/29/20 ibuprofen 200 mg tablet 200 mg PO QID PRN 08/09/18 01/29/20 multivitamin 1 tab PO DAILY 08/09/18 01/29/20 loratadine 10 mg tablet 10 mg PO DAILY 10/23/18 01/29/20 Previous Rx's Medication Instructions Recorded ondansetron HCl 4 mg tablet 4 mg PO DAILY PRN #90 tab 06/14/19 sumatriptan succinate 50 mg tablet 50 mg PO ONCE #30 tab 06/14/19 albuterol sulfate 90 mcg/actuation 2 puff INHALATION Q6H PRN #8 gram 09/25/19 aerosol inhaler omeprazole 40 mg capsule,delayed 40 mg PO DAILY #90 cap 12/05/19 release omeprazole 20 mg capsule,delayed 20 mg PO DAILY #90 cap 12/12/19 release buspirone 10 mg tablet 10 mg PO BID #180 tab 01/27/20 mncqqsahfn-wxdupprsahgzy-txiaqxaz 1 tab PO Q4-6H PRN #10 tab 01/27/20 50 mg-325 mg-40 mg tablet duloxetine 60 mg capsule,delayed 60 mg PO DAILY #90 cap 01/27/20 release topiramate 25 mg tablet 25 mg PO DAILY #60 tab 01/27/20 Allergies Allergy/AdvReac Type Severity Reaction Status Date / Time promethazine [From PHENERGAN] Allergy Unknown Anxiety Verified 01/29/20 10:15 Review of Systems Constitutional Constitutional: Denies fever(s) Cardiovascular Cardiovascular: Denies chest pain and Denies dyspnea Respiratory Respiratory: Denies dyspnea Gastrointestinal Gastrointestinal: Reports abdominal pain, Denies change in bowel habits, Reports nausea and Denies vomiting Genitourinary Genitourinary: Denies dysuria Genitourinary: Denies dysuria and Denies vaginal discharge Musculoskeletal Musculoskeletal: Denies arthralgias and Denies myalgias Integumentary/Breasts Skin/Breast: Denies rash Neurologic Neurologic: Denies behavioral changes Psychiatric Psychiatric: Denies behavioral changes Hematologic/Lymphatic Hematologic/Lymphatic: Denies easy bleeding and Denies easy bruising Patient History Medical History Ankle pain (Chronic ~2016) Bacterial vaginosis (Inactive) Chicken pox (Resolved ~1992) Chlamydia (Resolved ~2003) Depression with anxiety (Chronic ~2002) External otitis of right ear (Inactive) Foot pain (Chronic ~2016) Fractures (Resolved ~2017) Heavy menstrual period (Chronic ~2016) Intractable migraine with aura (Inactive) Left ovarian cyst (Resolved) Malpositioned IUD (Resolved) Migraine headache (Chronic ~1989) Ovarian cyst (Chronic ~2016) Painful menstrual periods (Chronic ~2014) Panic attack (Chronic) PID (pelvic inflammatory disease) (Chronic ~2016) Tenderness of female pelvic organs (Inactive) URI (upper respiratory infection) (Inactive) Urticaria (Inactive) Vaginal discharge (Inactive) Vaginal pain (Inactive) Vertigo (Chronic ~2014) Viral illness (Inactive) Family History Father Hyperlipidemia Hypertension Mother Mental health problem Brother Developmental disability Brother Angelman syndrome Sister Mental health problem Grandmother Lung cancer Hyperlipidemia Hypertension Stroke Grandfather Diabetes mellitus History of heart disease Hyperlipidemia Hypertension Stroke Congestive heart failure Grandmother Cancer Diabetes mellitus Hyperlipidemia Hypertension Stroke Dementia History of kidney transplant Social History Smoking Status: Former smoker (Quit 05/29/17) Tobacco: How many years used: 15 second hand exposure: No alcohol intake: current (glass of wine every 2-3 weeks) substance use type: marijuana (smoke, once every 3 days) Smoking Status: Former smoker (Quit 05/29/17) alcohol intake frequency: a few times a month Substance Use Type: marijuana Exam Initial Vital Signs Initial Vital Signs: Vital Signs Pulse Rate 102 H 02/24/20 01:09 Respiratory Rate 20 02/24/20 01:09 Blood Pressure 151/84 H 02/24/20 01:09 Pulse Oximetry 99 02/24/20 01:09 Const General: cooperative and comfortable Limitations: mental status not altered HENMN Head: normal to inspection and normocephalic Resp Effort & Inspection: normal respiratory effort Auscultation: clear to auscultation bilaterally Cardio Rate: tachycardic Rhythm: regular rhythm GI Inspection: non-distended Palpation: soft, No firm and tender (Left lower abdomen/left adnexa) Back/Spine/Pelvis Back: No CVA tenderness Skin Lesions: no lesions Rashes: no rashes Extrem General: normal to inspection and capillary refill normal Psych Appearance: grossly normal and well kempt Course Orders Ordered: ED Orders 02/24/20 01:10 Complete Blood Count AUTO DIFF Stat Comprehensive Metabolic Panel Stat HCG Quantitative /Beta subunit Stat Lipase Stat 02/24/20 02:06 US pelvic complete Stat Discontinued Medications Ondansetron HCl (Zofran) 4 mg IV NOW ONE Stop: 02/24/20 01:15 Last Admin: 02/24/20 01:19 Dose: 4 mg Documented by: SHARON Vital Signs Vital signs: Vital Signs - 8 hr 02/24/20 01:09 02/24/20 02:30 02/24/20 03:30 Pulse Rate 102 H 92 H 95 H Respiratory Rate 20 16 16 Blood Pressure 151/84 H 175/85 H 135/76 Pulse Oximetry 99 99 100 Medical Decision Making Lab Data Lab results reviewed: Yes I reviewed the patient's lab results. Result diagrams: 02/24/20 01:10 02/24/20 01:10 Labs: Lab Results 02/24/20 02/24/20 02/24/20 Range/Units 01:10 01:10 01:10 WBC 9.5 (4.5-11.0) X10^3/uL RBC 4.93 (4.0-5.2) X10^6/uL Hgb 14.2 (12.0-16.0) g/dL Hct 42.1 (36-46) % MCV 85.4 (80-100) fL MCH 28.9 (26-34) PG MCHC 33.8 (30-36) % RDW 13.4 (11.6-14.8) % Plt Count 248 (150-400) X10^3/uL Neut % (Auto) 60.7 (50-75) % Lymph % (Auto) 30.3 (25-40) % [place] % (Auto) 7.2 (3-14) % Eos % (Auto) 1.3 L (2-4) % Baso % (Auto) 0.5 (0-2) % Neut # (Auto) 5800 (5033-1957) /uL Lymph # (Auto) 2900 (2543-3891) /uL [place] # (Auto) 700 (0-900) /uL Eos # (Auto) 100 (0-450) /uL Baso # (Auto) 0 (0-100) /uL Sodium 138 (137-145) mmol/L Potassium 3.8 (3.4-5.1) mmol/L Chloride 105 (98-107) mmol/L Carbon Dioxide 26 (22-32) mmol/L BUN 12 (7-17) mg/dL Creatinine 0.65 (0.52-1.04) mg/dL Estimated GFR > 60.0 (>60) mL/min BUN/Creatinine Ratio 18.5 (6-22) Glucose 83 (70-100) mg/dL Calcium 9.3 (8.4-10.2) mg/dL Total Bilirubin 0.4 (0.2-1.3) mg/dL AST 28 (14-36) IU/L ALT 22 (<35) IU/L Alkaline Phosphatase 68 (38-126) U/L Total Protein 7.3 (6.3-8.2) g/dL Albumin 4.1 (3.5-5.0) g/dL Globulin 3.2 (1.7-4.1) g/dL Albumin/Globulin Ratio 1.3 (1.0-2.8) Lipase 102 (23-300) U/L HCG, Quant 722.9 mIU/mL Point of Care Testing Test Results Positive Urine Dip Bedside Urine Glucose Negative Bedside Urine Bilirubin - Negative Bedside Urine Ketone - Negative Urine Specific [place] 1.030 Bedside Urine Occult Blood - Negative Bedside Urine pH 6.0 Bedside Urine Protein - Negative Bedside Urine Urobilinogen +/- 1mg Bedside Urine Nitrite - Negative Bedside Urine Leukocytes - Negative Esterase Point of care testing: Point of Care Testing Test Results Positive Urine Dip Bedside Urine Glucose Negative Bedside Urine Bilirubin - Negative Bedside Urine Ketone - Negative Urine Specific [place] 1.030 Bedside Urine Occult Blood - Negative Bedside Urine pH 6.0 Bedside Urine Protein - Negative Bedside Urine Urobilinogen +/- 1mg Bedside Urine Nitrite - Negative Bedside Urine Leukocytes - Negative Esterase Imaging Data US - OB: Radiologist's Impression: No significant abnormality demonstrated. Collapsed small cyst versus follicles on both overs MDM Narrative Medical decision making narrative: Patient does have a positive test today. I did inform her of this finding. It was unexpected. She states she has been off control for the past month in preparation for a tubal ligation in 2 weeks. Her last sexual intercourse was 1 week ago. She is not having any vaginal bleeding. Her HCG quant is below the discriminatory zone however given the amount of discomfort that she was having an ultrasound was performed. No IUP seen which is not surprising however no other findings consistent with torsion or ectopic. 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 She was given strict return precautions. She expressed understanding and agreement. Discharge Plan Departure Patient Disposition: Home Clinical Impression: Qualifiers: Weeks of gestation: less than 8 weeks Qualified Code(s): Z3A.01 - Less than 8 weeks gestation of Discharge Date/Time: 02/24/20 03:31 Instructions: DI for Abdominal Pain -- Early Activity Restrictions/Additional Instructions: I recommend that tomorrow you give Dr. Moffett's office a call to discuss further workup from this point. Also recommend you contact her primary provider for follow-up. Return to the emergency department for any new or worsening symptoms Prescriptions: No Action albuterol sulfate 90 mcg/actuation HFA aerosol inhaler 2 puff INHALATION Q6H PRN (Reason: shortness of breath) Qty: 8 RF: 1 omeprazole 20 mg capsule,delayed release(DR/EC) 20 mg PO DAILY Qty: 90 RF: 3 omeprazole 40 mg capsule,delayed release(DR/EC) 40 mg PO DAILY Qty: 90 RF: 3 loratadine [Claritin] 10 mg tablet 10 mg PO DAILY RF: 0 sumatriptan succinate 50 mg tablet 50 mg PO ONCE Qty: 30 RF: 3 ondansetron HCl 4 mg tablet 4 mg PO DAILY PRN (Reason: nausea and vomiting) Qty: 90 RF: 3 buspirone 10 mg tablet 10 mg PO BID Qty: 180 RF: 3 duloxetine 60 mg capsule,delayed release(DR/EC) 60 mg PO DAILY Qty: 90 RF: 3 topiramate 25 mg tablet 25 mg PO DAILY Qty: 60 RF: 3 vvwwhfnivf-cpldrkisfkptp-vurr 50-325-40 mg tablet 1 tab PO Q4-6H PRN (Reason: pain) Qty: 10 RF: 1 multivitamin [Daily Multi-Vitamin] tablet 1 tab PO DAILY RF: 0 ibuprofen 200 mg tablet 200 mg PO QID PRNRF: 0 acetaminophen [Tylenol] 325 mg tablet 325 mg PO Q4H PRNRF: 0 Referrals: Laly Napier ARNP [Primary Care Provider] -
[2020-02-24] MEDS: ONDANSETRON 4 MG/2 ML INJ IV (01:19)
[2020-02-24 01:23] LABS: Add Manual Diff / Slide Review NO; Basophils Absolute Auto 0 /uL (0-100); Basophils Percent Auto 0.5 % (0-2); Eosinophils Absolute Auto 100 /uL (0-450); Eosinophils Percent Auto 1.3 % (2-4); Hematocrit 42.1 % (36-46); Hemoglobin 14.2 g/dL (12.0-16.0); Lymphocytes Absolute Auto 2900 /uL (1100-4500); Lymphocytes Percent Auto 30.3 % (25-40); Mean Corpuscular HGB Conc 33.8 % (30-36); Mean Corpuscular Hemoglobin 28.9 PG (26-34); Mean Corpuscular Volume 85.4 fL (80-100); Monocytes Absolute Auto 700 /uL (0-900); Monocytes Percent Auto 7.2 % (3-14); Neutrophils Absolute Auto 5800 /uL (1500-7000); Neutrophils Percent Auto 60.7 % (50-75); Platelet Count 248 X10^3/uL (150-400); Red Blood Cell Count 4.93 X10^6/uL (4.0-5.2); Red Cell Distribution Width 13.4 % (11.6-14.8); White Blood Cell Count 9.5 X10^3/uL (4.5-11.0)
[2020-02-24 01:38] LABS: Alanine Aminotransferase 22 IU/L (<35); Albumin 4.1 g/dL (3.5-5.0); Albumin Globulin Ratio 1.3 (1.0-2.8); Alkaline Phosphatase 68 U/L (38-126); Aspartate Aminotransferase 28 IU/L (14-36); BUN Creatinine Ratio 18.5 (6-22); Bilirubin Total 0.4 mg/dL (0.2-1.3); Blood Urea Nitrogen 12 mg/dL (7-17); Calcium 9.3 mg/dL (8.4-10.2); Carbon Dioxide 26 mmol/L (22-32); Chloride 105 mmol/L (98-107); Estimated Glomerular Filt Rate > 60.0 mL/min (>60); Globulin 3.2 g/dL (1.7-4.1); Glucose 83 mg/dL (70-100); HEMOLYSIS 21 (0-50); Lipase 102 U/L (23-300); Potassium 3.8 mmol/L (3.4-5.1); Sodium 138 mmol/L (137-145); Total Protein 7.3 g/dL (6.3-8.2)
[2020-02-24 01:55] LABS: HCG Quantitative /Beta subunit 722.9 mIU/mL
--- NOTE | 2020-02-24 02:06 | DI.US.S_ITS ---
PROCEDURE: US PELVIC COMPLETE INDICATIONS: POSITIVE HCG; PAIN TECHNIQUE: Real-time scanning was performed of the pelvic organs, with image documentation. Additional endovaginal scanning was necessary due to incomplete visualization of the adnexal and endometrial structures by transabdominal scanning. COMPARISON: [facility], , PELVIC COMPLETE, 10/18/2018, 10:18. FINDINGS: Transabdominal scanning: Limited scanning through the kidneys shows no hydronephrosis. No pathologic free abdominal or pelvic fluid. Endovaginal scanning: Uterus: Uterus is anteverted and normal in size at 8.3 x 4.6 x 6.2 cm. The endometrium measures 12.8 mm in combined thickness. No intrauterine fluid collection. No intrauterine . Multiple small nabothian cysts are present in the cervix. Ovaries: The right ovary measures 2.8 x 1.9 x 1.9 cm. The right ovary contains a vascular involuting complicated cyst. The left ovary measures 2.4 x 2.4 x 2.3 cm. It contains an involuting complex cyst. There is normal vascular flow to each ovary. No free fluid in the pelvis. No suspicious adnexal masses. IMPRESSION: 1. No intrauterine . Follow-up beta hCG levels recommended. If these continue to rise, pelvic ultrasound in 1-2 weeks to confirm viable intrauterine is recommended. Ectopic cannot be entirely excluded at this point. 2. Normal ovaries. 3. Concordant with preliminary report. Dictated by: Silvina Morales M.D. on 02/24/2020 at 8:07 Approved by: Silvina Morales M.D. on 02/24/2020 at 8:16
[2020-02-24 02:30] VITALS: BP 175/85; PULSE 92; RESP 16; O2SAT 99
[2020-02-24 03:30] VITALS: BP 135/76; PULSE 95; RESP 16; O2SAT 100
== END 2020-02-24 03:31 | disposition home or self-care (01) ==
PROVIDERS: Emergency Provider Emergency Medicine; PCP Nurse Practitioner
DX: R10.9 Unspecified abdominal pain (principal); Z3A.01 Less than 8 weeks gestation of pregnancy
CPT/HCPCS: 36415; 76830; 76856; 80053; 81003; 81025; 83690; 84702; 85025; 96374; 99284; J2405

== ENCOUNTER → 2020-03-02 14:00 | Outpatient (CLI) | payer OTHER, MEDICAID, SELFPAY ==
[2020-03-03 07:46] LABS: COVID19 Sendout Not Detected (Not Detect)
== END ==
PROVIDERS: PCP Nurse Practitioner; Visit Provider Physician Assistant
DX: Z11.59 Encounter for screening for other viral diseases (principal)
CPT/HCPCS: 87635

== ENCOUNTER 2020-03-05 09:44 | Day surgery (SDC) | payer OTHER, MEDICAID, SELFPAY ==
[2020-03-04 12:01] VITALS: BMI 49.8
[2020-03-05] VITALS (8 sets, daily range): BP systolic 100–134; BP diastolic 65–93; PULSE 69–88; RESP 10–18; TEMP 36.1–37.2; O2SAT 94–100; BMI 49.8
[2020-03-05] MEDS: LACTATED RINGERS 1,000 ML 100 ML IV (10:17)
--- NOTE | 2020-03-05 10:50 | PM.PREOP ---
Pre-operative Note COVID-19 COVID-19 status: Negative Result date/Date tested (Pos, Neg/Pending): 03/02/20 Interval Note History & Physical reviewed/Exam performed by Physician: Yes Changes to H&P: Yes H&P completed within 30 days and has changed as indicated here:: patient did have completed miscarriage 4 days ago
[2020-03-05] MEDS: CEFAZOLIN 2 GM/100 ML FROZ.PIGGY IV (11:39)
--- NOTE | 2020-03-05 12:13 | SUR.OPER ---
Lithotomy on padded OR bed, head on pillow, arms secured on padded arm boards at <90 degrees abduction. Legs secured in padded yellow fins stirrups.
[2020-03-05] MEDS: BUPIVACAINE 0.5% W/ EPI (PF) 30 ML VIAL INJ (12:30)
--- NOTE | 2020-03-05 12:45 | PM.OP.1 ---
Operative Date/Time/Diagnoses Date of procedure: 03/05/20 Time of procedure: 12:45 Pre-op diagnosis: Undesired fertility and menorrhagia Post-op diagnosis: same Procedure & Clinicians Procedure: Laparoscopic tubal ligation by fulguration, hysteroscopy, NovaSure endometrial ablation Same procedure as scheduled: Yes Indications: Patient with undesired fertility and menorrhagia Surgeon: Sachi Moffett Click Yes if Unassisted: Yes Anesthesia Type: General Operative Notes Findings: Normal tubes, ovaries, uterus, no internal hernias, no endometriosis, no scar tissue, thickened endometrium on hysteroscopy with no obvious other pathology. Closure Type: primary Specimen(s): none sent Estimated Blood Loss (mL): 20 Blood products transfused: none Procedure in detail: Patient was brought to the operating room where she underwent general anesthesia. She was placed in low yellowfin stirrups and prepped and draped in usual sterile fashion. 2 g of Ancef were in prior to beginning of the case. Pulsatile stockings were in place and functional. Warming was with blankets. A single-tooth tenaculum was placed on the anterior lip of the cervix and the cervix dilated to #6 Hegar dilator. The Mar uterine manipulator was placed and balloon inflated with 3 mL of air. The area of the incisions were injected with half percent Marcaine with epinephrine. An incision was made in the umbilicus with a scalpel. The incision was carried down to the fascial layer which was held due to difficulty placing the varies needle due to the patient's body habitus. The Verres needle placed in the abdomen. Confirmation of correct placement of the needle was performed by withdrawing on the syringe and then allowing fluid to fall freely through the needle. The abdomen was insufflated to 4 L of CO2. A 5 mm trocar was placed under direct visualization. A 5 mm trochars were placed in the right lower quadrant under direct visualization after incising the skin. There did not appear to be any damage with placement of the trocars. The right fallopian tube was grasped and cauterized and cut with the PK generator. Same procedure was performed on the left fallopian tube. Adequate hemostasis was noted. The CO2 was allowed to escape from the abdomen. The trochars were removed. Skin was closed with 4-0 monocryl. A single-tooth tenaculum was placed on the anterior lip of the cervix. The cervix was already dilated. The hysteroscope was placed through the cervix into the uterus with saline solution run. There was no obvious intrauterine pathology just some blood clots. The NovaSure sound was used to determine the length of the uterus which was 4.5 cm. This was set on the NovaSure device. The device was placed in the uterus and the width determined to be 4.2 cm. The length and width were entered into the NovaSure machine. The plunger was pushed to the cervix to effect a good vacuum seal. This was documented by the machine. Cauterization was done with a total power of 104 and 110 seconds. The NovaSure array was pulled back into the device and then the device removed. Patient tolerated the procedure well. Counts of instruments and sponges were correct. Patient went to recovery room in good condition. Complications: none Post-operative Condition: stable Disposition: same day surgery Plan for aftercare: Follow-up in 1 week
[2020-03-05] MEDS: OXYCODONE/ACETAMINOPHEN 5/325 TABLET 1 TAB PO (12:56)
--- NOTE | 2020-03-05 13:40 | SUR.PHASEII ---
Recieved report from Lenore MALONE. Pt states she is ready to go home. No distress noted. States she is slightly sore but that she is okay and ready to go. No nausea noted.
== END 2020-03-05 13:30 | disposition home or self-care (01) ==
PROVIDERS: PCP Nurse Practitioner; Referring Provider Specialist; Visit Provider Specialist
PROC: (CPT 58671; principal; 2020-03-05 10:45)
PROC: 0U5B8ZZ Destruction of Endometrium, Via Natural or Artificial Opening Endoscopic (ICD-10-PCS; CPT 58563; 2020-03-05 10:45)
DX: N92.0 Excessive and frequent menstruation with regular cycle (principal); Z30.2 Encounter for sterilization
CPT/HCPCS: 58670; 58563; J0690; J1100; J1885; J2250; J2405; J2704; J3010

== ENCOUNTER → 2020-06-30 12:52 | Outpatient (CLI) | payer OTHER, MEDICAID, SELFPAY ==
--- NOTE | 2020-06-30 12:54 | DI.RAD.S_ITS ---
PROCEDURE: XR ANKLE LT MIN 3V INDICATIONS: left ankle pain s/p fracture TECHNIQUE: 3 views of the ankle were acquired. COMPARISON: [facility], CR, XR ANKLE LT MIN 3V, 04/16/2018, 16:15. FINDINGS: Bones: No fractures or dislocations. Ankle mortise is normally aligned. No suspicious bony lesions. Soft tissues: No tibiotalar joint effusion. Achilles tendon appears normal. IMPRESSION: Healed fracture at the superior margin of the navicular bone seen on the lateral view. No new injury seen. Dictated by: Truong Licona M.D. on 06/30/2020 at 13:48 Approved by: Truong Licona M.D. on 06/30/2020 at 13:48
[2020-06-30 13:41] LABS: Hematocrit 42.7 % (36-46); Hemoglobin 14.2 g/dL (12.0-16.0); Mean Corpuscular HGB Conc 33.2 % (30-36); Mean Corpuscular Volume 84.3 fL (80-100); Platelet Count 233 X10^3/uL (150-400); Red Blood Cell Count 5.06 X10^6/uL (4.0-5.2); Red Cell Distribution Width 14.1 % (11.6-14.8)
[2020-06-30 13:54] LABS: Rheumatoid Factor < 8.6 IU/mL (<12.0)
[2020-06-30 13:55] LABS: C-Reactive Protein Quant 1.1 mg/dL (<1.0)
[2020-06-30 13:57] LABS: Erythrocyte Sedimentation Rate 7 MM/HR (0-20)
[2020-06-30 14:08] LABS: Free T3, Triiodothyronine Free 3.81 pg/mL (2.77-5.27); Free T4, Direct Thyroxine 0.94 ng/dL (0.78-2.19)
[2020-06-30 14:15] LABS: Neutrophils Absolute Manual 3720 /uL (3000-5900); RBC Morphology Normal Morphology; Total Cells Counted 100
[2020-06-30 14:16] LABS: Platelet Estimate Adequate on smear
[2020-06-30 14:21] LABS: Thyroid Stimulating Hormone 2.41 uIU/mL (0.47-4.68)
[2020-07-01 17:51] LABS: ANA Screen, IFA Negative (.)
== END ==
PROVIDERS: PCP Nurse Practitioner; Referring Provider Nurse Practitioner; Visit Provider Nurse Practitioner
DX: M25.572 Pain in left ankle and joints of left foot (principal); F41.8 Other specified anxiety disorders; M35.9 Systemic involvement of connective tissue, unspecified; Z87.81 Personal history of (healed) traumatic fracture; Z82.69 Family history of other diseases of the musculoskeletal system and connective tissue
CPT/HCPCS: 36415; 73610; 84439; 84443; 84481; 85025; 85651; 86038; 86140; 86430

== ENCOUNTER 2020-08-08 13:45 | Emergency (ER) | payer OTHER, MEDICAID, SELFPAY ==
[2020-08-08 13:56] VITALS: BP 141/68; PULSE 68; RESP 14; TEMP 36.6; O2SAT 99; BMI 48.0
--- NOTE | 2020-08-08 14:01 | DI.RAD.S_ITS ---
PROCEDURE: XR ANKLE LT MIN 3V INDICATIONS: fall down 2 stairs TECHNIQUE: 3 views of the ankle were acquired. COMPARISON: [facility], CR, XR ANKLE LT MIN 3V, 06/30/2020, 13:03. FINDINGS: Bones: No fractures or dislocations. Ankle mortise is normally aligned. No suspicious bony lesions. Soft tissues: No tibiotalar joint effusion. Achilles tendon appears normal. IMPRESSION: No evidence acute bony abnormality of the left ankle. If clinical suspicion and/or symptoms persist, further assessment with repeat plain films, or advanced imaging (e.g., CT, MRI, or bone scan) may be helpful for further assessment. Dictated by: Seun Zelaya M.D. on 08/08/2020 at 13:49 Approved by: Seun Zelaya M.D. on 08/08/2020 at 13:50
[2020-08-08] MEDS: KETOROLAC 60 MG/2 ML VIAL 30 MG IM (14:53)
--- NOTE | 2020-08-08 15:12 | ED_ITS ---
HPI - Extremity Injury (Lower) <ZHANNA Jones - Last Filed: 08/08/20 15:21> General Chief Complaint: Extremity Injury, Lower Stated Complaint: FELL DOWN STAIRS, POSSIBLE LEFT ANKLE FRACTURE Time Seen by Provider: 08/08/20 14:06 Source: patient and family Mode of arrival: Ambulatory Limitations: no limitations History of Present Illness HPI Narrative: The patient is a 35-year-old female former smoker with history of left ankle fracture who presents with a chief complaint of left ankle pain after missing a step last night. She states she thinks she missed a step or 2, felt a pop in her left ankle is able to weightbear. She did not fall because she caught herself. She took ibuprofen yesterday, has not had anything for pain today. She has rested, iced and elevated her left ankle. She states that her pain is on the inside of her ankle. Related Data Home Medications Medication Instructions Recorded Confirmed loratadine 10 mg tablet 10 mg PO DAILY 10/23/18 03/05/20 botox for h/a SUBCUT 06/30/20 omeprazole 20 mg capsule,delayed 20 mg PO BID cap 06/30/20 release Previous Rx's Medication Instructions Recorded ondansetron HCl 4 mg tablet 4 mg PO DAILY PRN #90 tab 06/14/19 sumatriptan succinate 50 mg tablet 50 mg PO ONCE #30 tab 06/14/19 albuterol sulfate 90 mcg/actuation 2 puff INHALATION Q6H PRN #8 gram 09/25/19 aerosol inhaler buspirone 10 mg tablet 10 mg PO BID #180 tab 01/27/20 lzzbhobscz-smpevajtlgoqj-ovfilmii 1 tab PO Q4-6H PRN #10 tab 01/27/20 50 mg-325 mg-40 mg tablet duloxetine 60 mg capsule,delayed 60 mg PO DAILY #90 cap 01/27/20 release topiramate 25 mg tablet 25 mg PO DAILY #60 tab 01/27/20 ketorolac 10 mg PO TID PRN #15 tab 08/08/20 Allergies Allergy/AdvReac Type Severity Reaction Status Date / Time promethazine [From PHENERGAN] Allergy Unknown Anxiety Verified 06/30/20 11:53 Review of Systems <ZHANNA Jones - Last Filed: 08/08/20 15:21> Review of Systems Narrative: GENERAL: Denies chills, fatigue, malaise, fever, sweats. HEENT: Denies sinus pain, ear pain, sore throat, difficulty swallowing, dizziness. RESPIRATORY: Denies dyspnea, cough, wheezing, hemoptysis, sputum. CARDIOVASCULAR: Denies chest pain, palpitations, orthopnea, edema, GASTROINTESTINAL: Denies nausea, vomiting, abdominal pain, diarrhea, constipation, melena. : Denies dysuria, frequency, incontinence, hematuria, urinary retention. MUSCULOSKELETAL: See HPI SKIN: Denies rash, skin lesions, or other NEUROLOGIC: Denies weakness, headache, numbness, change in speech, confusion, seizures, incoordination. PSYCHIATRIC: No concerning psychosocial issues. 12 point review of systems is negative except for those stated above Patient History <ZHANNA Jones - Last Filed: 08/08/20 15:21> Medical History (Updated 08/08/20 @ 15:14 by ZHANNA Jones) Ankle pain (~2016) Bacterial vaginosis Chicken pox (~1992) Chlamydia (~2003) Depression with anxiety (~2002) Dysmenorrhea Dyspareunia Endometritis External otitis of right ear Foot pain (~2016) Fractures (~2017) Habitual snoring Heavy menstrual period (~2016) Intractable migraine with aura Irregular menses Left ovarian cyst Malpositioned IUD Menorrhagia with regular cycle Migraine headache (~1989) Ovarian cyst (~2016) Painful menstrual periods (~2014) Panic attack PID (pelvic inflammatory disease) (~2016) Tenderness of female pelvic organs URI (upper respiratory infection) Urticaria Vaginal discharge Vaginal pain Varicose veins of right lower extremity Vascular insufficiency of extremity Vertigo (~2014) Viral illness Family History Father Hyperlipidemia Hypertension Mother Mental health problem Brother Developmental disability Brother Angelman syndrome Sister Mental health problem Grandmother Lung cancer Hyperlipidemia Hypertension Stroke Grandfather Diabetes mellitus History of heart disease Hyperlipidemia Hypertension Stroke Congestive heart failure Grandmother Cancer Diabetes mellitus Hyperlipidemia Hypertension Stroke Dementia History of kidney transplant Social History household members: children Smoking Status: Former smoker Tobacco: How many years used: 15 second hand exposure: No alcohol intake: current substance use type: marijuana (smoke, once every 3 days) Smoking Status: Former smoker alcohol intake frequency: a few times a month Substance Use Type: marijuana Exam <ZHANNA Jones Last Filed: 08/08/20 15:21> Narrative Exam Narrative: GENERAL: This is a well-nourished, well-developed patient, in mild no acute distress HEAD: Atraumatic. Normocephalic. No temporal or scalp tenderness. EYES: Pupils equal round and reactive. Extraocular motions intact. No scleral icterus. No injection or drainage. ENT: Nose without bleeding, purulent drainage or septal hematoma. T no wearing a mask Airway patent. NECK: Trachea midline. No JVD or lymphadenopathy. Supple, nontender, no meningeal signs. CARDIOVASCULAR: Regular rate and rhythm RESPIRATORY: No cough. No increased respiratory effort. No accessory muscle use. EXTREMITIES: Pain to palpation noted medial left ankle, able to flex extend pronate supinate with decreased range of motion all rosas. No pain to palpation of left lower leg and knee, full range of motion noted left knee BACK: Nontender without deformity or crepitance. No flank tenderness. NEURO: AOx3. SKIN: Slight ecchymosis noted on medial aspect of left ankle Initial Vital Signs Initial Vital Signs: Vital Signs Temperature 97.8 F 08/08/20 13:56 Pulse Rate 68 08/08/20 13:56 Respiratory Rate 14 08/08/20 13:56 Blood Pressure 141/68 H 08/08/20 13:56 Pulse Oximetry 99 08/08/20 13:56 <Khalida Floyd DO - Last Filed: 08/08/20 18:52> Initial Vital Signs Initial Vital Signs: Vital Signs Temperature 97.8 F 08/08/20 13:56 Pulse Rate 68 08/08/20 13:56 Respiratory Rate 14 08/08/20 13:56 Blood Pressure 141/68 H 08/08/20 13:56 Pulse Oximetry 99 08/08/20 13:56 Course <ZHANNA Jones - Last Filed: 08/08/20 15:21> Orders Ordered: ED Orders 08/08/20 14:01 XR ankle LT min 3V Stat Discontinued Medications Ketorolac Tromethamine (Ketorolac 60 Mg/2 Ml Vial) 30 mg IM NOW ONE Stop: 08/08/20 14:49 Last Admin: 08/08/20 14:53 Dose: 30 mg Documented by: RSADANE Vital Signs Vital signs: Vital Signs - 8 hr 08/08/20 13:56 08/08/20 15:23 Temperature 97.8 F Pulse Rate 68 76 Respiratory Rate 14 16 Blood Pressure 141/68 H 127/76 Pulse Oximetry 99 97 <Khalida Floyd DO - Last Filed: 08/08/20 18:52> Orders Ordered: ED Orders 08/08/20 14:01 XR ankle LT min 3V Stat Discontinued Medications Ketorolac Tromethamine (Ketorolac 60 Mg/2 Ml Vial) 30 mg IM NOW ONE Stop: 08/08/20 14:49 Last Admin: 08/08/20 14:53 Dose: 30 mg Documented by: RSADANE Vital Signs Vital signs: Vital Signs - 8 hr 08/08/20 13:56 08/08/20 15:23 Temperature 97.8 F Pulse Rate 68 76 Respiratory Rate 14 16 Blood Pressure 141/68 H 127/76 Pulse Oximetry 99 97 MDM - Extremity Injury (Lower) <ZHANNA Jones - Last Filed: 08/08/20 15:21> Imaging Data Extremity x-ray #1: Radiologist's Impression: [address] [place] [id number] ReportSigned Patient: Charmaine Lindquist [facility]#: [id number]: 1985Acct:[id number]/Sex: 35 / FDate of Service: 08/08/20Loc: EDAccession Number: [id number] Procedure: XR ankle LT min 3V Ordering Provider: Khalida Floyd D.O. PROCEDURE: XR ANKLE LT MIN 3V INDICATIONS: fall down 2 stairs TECHNIQUE: 3 views of the ankle were acquired. COMPARISON: [facility], , XR ANKLE LT MIN 3V, 06/30/2020, 13:03. FINDINGS: Bones: No fractures or dislocations. Ankle mortise is normally aligned. No suspicious bony lesions. Soft tissues: No tibiotalar joint effusion. Achilles tendon appears normal. IMPRESSION: No evidence acute bony abnormality of the left ankle. If clinical suspicion and/or symptoms persist, further assessment with repeat plain films, or advanced imaging (e.g., CT, MRI, or bone scan) may be helpful for further assessment. Dictated by: Seun Zelaya M.D. on 08/08/2020 at 13:49 Approved by: Seun Zelaya M.D. on 08/08/2020 at 13:50 [facility] Narrative Medical decision making narrative: The patient is a 35 year old female who presents with a chief complaint of left ankle pain. She is neurovascularly intact throughout her stay in the emergency department. X-ray shows no acute findings. We discussed the possibility of occult fracture, soft tissue injury, discussed the importance of follow-up with primary care provider. She is placed in an Blair wrap, denied crutches. Prescription of Toradol given, instructed to not take with any other NSAIDs. Discussed coming back to ER for acute concerns such as decreased circulation to her foot. Patient has no questions or concerns upon discharge states understanding of return precautions as well as follow-up care. Discharge Plan Departure Patient Disposition: Home Clinical Impression: Ankle pain, left Qualifiers: Chronicity: acute Qualified Code(s): M25.572 - Pain in left ankle and joints of left foot Instructions: DI for Ankle Sprain, How To Perform RICE (Rest, Ice, Compress, Elevate), DI for Ankle Pain, How to Apply an Elastic Wrap on Ankle Activity Restrictions/Additional Instructions: Thank you for trusting us with your care today As I discussed, your x-ray shows no acute fracture. This does not rule out a soft tissue injury such as a ligament or tendon injury. It is important that you follow up with primary care provider, especially if worsening or no improvement. There can be fractures that did not show up on initial x-ray. I have given you a prescription of Toradol or ketorolac. This is an NSAID. Do not combine it with other NSAIDs such as Aleve or ibuprofen. I suggest taking it with some food, as it can irritate your stomach. I sent this prescription to [facility] in [place]. Please follow-up with primary care provider in the next few days. As discussed please come back to emergency department for any acute concerns such as decreased circulation. Prescriptions: New ketorolac 10 mg tablet 10 mg PO TID PRN (Reason: pain) Qty: 15 RF: 0 No Action albuterol sulfate 90 mcg/actuation HFA aerosol inhaler 2 puff INHALATION Q6H PRN (Reason: shortness of breath) Qty: 8 RF: 1 loratadine [Claritin] 10 mg tablet 10 mg PO DAILY RF: 0 sumatriptan succinate 50 mg tablet 50 mg PO ONCE Qty: 30 RF: 3 ondansetron HCl 4 mg tablet 4 mg PO DAILY PRN (Reason: nausea and vomiting) Qty: 90 RF: 3 buspirone 10 mg tablet 10 mg PO BID Qty: 180 RF: 3 duloxetine 60 mg capsule,delayed release(DR/EC) 60 mg PO DAILY Qty: 90 RF: 3 topiramate 25 mg tablet 25 mg PO DAILY Qty: 60 RF: 3 yhrezwurtp-tyqbtsxlkzcjq-tpjl 50-325-40 mg tablet 1 tab PO Q4-6H PRN (Reason: pain) Qty: 10 RF: 1 omeprazole 20 mg capsule,delayed release(DR/EC) 20 mg PO BID RF: 0 botox for h/a SUBCUT RF: 0 Referrals: Laly Napier ARNP [Primary Care Provider] - Stand Alone Forms: Work Release Note <Khalida Floyd DO - Last Filed: 08/08/20 18:52> Cosign ED Attending Cosignature Attestation: I was immediately available in the department for consultation. Documentation has been reviewed.
[2020-08-08 15:23] VITALS: BP 127/76; PULSE 76; RESP 16; O2SAT 97
== END 2020-08-08 15:25 | disposition home or self-care (01) ==
PROVIDERS: Emergency Provider Nurse Practitioner Family; PCP Nurse Practitioner
DX: M25.572 Pain in left ankle and joints of left foot (principal); W18.43XA Slipping, tripping and stumbling without falling due to stepping from one level to another, initial encounter
CPT/HCPCS: 73610; 96372; 99283; J1885

== ENCOUNTER → 2021-02-18 15:59 | Outpatient (CLI) | payer OTHER, MEDICAID, SELFPAY ==
[2021-02-18 16:30] LABS: COVID19 -Nasal RAPID Negative (Negative)
== END ==
PROVIDERS: PCP Nurse Practitioner; Visit Provider Nurse Practitioner
DX: Z20.822 Contact with and (suspected) exposure to COVID-19 (principal); J34.89 Other specified disorders of nose and nasal sinuses
CPT/HCPCS: 87635

== ENCOUNTER 2021-03-07 17:44 | Emergency (ER) | payer OTHER, MEDICAID, SELFPAY ==
[2021-03-07 17:54] VITALS: BP 143/82; PULSE 112; O2SAT 94
[2021-03-07 18:04] VITALS: BP 143/82; PULSE 111; RESP 19; TEMP 36.7; O2SAT 96; BMI 48.0
--- NOTE | 2021-03-07 18:04 | ED.HA ---
HPI - Headache General Chief Complaint: Headache Stated Complaint: MIGRAINE Time Seen by Provider: 03/07/21 18:02 History of Present Illness HPI Narrative: 35-year-old female former smoker with history of migraines and asthma presents with a chief complaint of a gradually worsening frontal headache over the past few days. She states her pain is worse with bright lights and loud noise and is behaving much like other migraines. She denies neurologic symptoms such as blurred vision trouble speech, she is not dizzy. She denies any neck pain or persistent vomiting though she is nauseated. She has taken her typical migraine medications at home including some with tripped and which has not helped much. Of note, she is currently being treated for a sinus infection with steroids which is likely worsening her symptoms. Related Data Home Medications Medication Instructions Recorded Confirmed loratadine 10 mg tablet (Claritin) 10 mg PO DAILY 10/23/18 03/04/21 botox for h/a SUBCUT 06/30/20 03/04/21 famotidine 20 mg tablet 20 mg PO BID 03/04/21 03/04/21 Previous Rx's Medication Instructions Recorded topiramate 25 mg tablet 25 mg PO DAILY #60 tab 01/27/20 ondansetron HCl 4 mg tablet 4 mg PO DAILY PRN #90 tab 08/10/20 rizatriptan 10 mg tablet See Rx Instructions PO .COMPLEX 01/05/21 #30 tab sumatriptan succinate 50 mg tablet See Rx Instructions .ROUTE 01/05/21 .COMPLEX #30 tab albuterol sulfate 90 mcg/actuation See Rx Instructions .ROUTE 02/19/21 aerosol inhaler .COMPLEX #18 g buspirone 10 mg tablet 10 mg PO BEDTIME #90 tab 03/04/21 buspirone 15 mg tablet 15 mg PO DAILY #90 tab 03/04/21 clarithromycin 500 mg tablet 500 mg PO Q12H 4 Days #8 tab 03/04/21 duloxetine 60 mg capsule,delayed 60 mg PO BID #180 cap 03/04/21 release prednisone 50 mg tablet 50 mg PO DAILY 5 Days #5 tab 03/04/21 Allergies Allergy/AdvReac Type Severity Reaction Status Date / Time promethazine [From PHENERGAN] Allergy Unknown Anxiety Verified 02/18/21 15:58 Patient History Medical History ADHD Ankle pain (~2016) Bacterial vaginosis Chicken pox (~1992) Chlamydia (~2003) Depression with anxiety (~2002) Dysmenorrhea Dyspareunia Endometritis External otitis of right ear Foot pain (~2016) Fractures (~2017) Habitual snoring Heavy menstrual period (~2017) Intractable migraine with aura Irregular menses Left ovarian cyst Malpositioned IUD Menorrhagia with regular cycle Migraine headache (~1989) Ovarian cyst (~2016) Painful menstrual periods (~2014) Panic attack PID (pelvic inflammatory disease) (~2016) Tenderness of female pelvic organs URI (upper respiratory infection) Urticaria Vaginal discharge Vaginal pain Varicose veins of right lower extremity Vascular insufficiency of extremity Vertigo (~2014) Viral illness Family History Father Hyperlipidemia Hypertension Mother Mental health problem Brother Developmental disability Brother Angelman syndrome Sister Mental health problem Grandmother Lung cancer Hyperlipidemia Hypertension Stroke Grandfather Diabetes mellitus History of heart disease Hyperlipidemia Hypertension Stroke Congestive heart failure Grandmother Cancer Diabetes mellitus Hyperlipidemia Hypertension Stroke Dementia History of kidney transplant Social History household members: children Smoking Status: Former smoker Tobacco: How many years used: 15 second hand exposure: No alcohol intake: current substance use type: marijuana (smoke, once every 3 days) Smoking Status: Former smoker alcohol intake frequency: a few times a month Substance Use Type: marijuana Exam Narrative Exam Narrative: GENERAL: [35 year old patient appears stated age. Well-developed patient, in mild distress. GCS 15, resting in a dark room HEAD: Atraumatic. Normocephalic. EYES: Pupils equal round and reactive. Extraocular motions intact. No scleral icterus. No injection or drainage. ENT: Nose without bleeding, purulent drainage. Throat without erythema, tonsillar hypertrophy or exudate. Airway patent. NECK: Trachea midline. Non tender, no meningeal signs CARDIOVASCULAR: Regular rate and rhythm without murmurs, gallops, or rubs. RESPIRATORY: Clear to auscultation. Breath sounds equal bilaterally. No wheezes, rales, or rhonchi. GASTROINTESTINAL: Abdomen soft, non-tender, nondistended. EXTREMITIES: No edema or joint tenderness. BACK: Nontender without deformity or crepitance. No flank tenderness. NEURO: AOx3. SKIN: No rash or erythema of visible areas NIH Stroke Scale 1a. LOC: Patient is alert and keenly responsive (0) 1b. LOC Questions: Patient answers both LOC questions accurately (0) 1c. LOC Commands: Patient performs both tasks correctly (0) 2. Best Gaze: Normal (0) 3. Visual: No visual loss (0) 4. Facial palsy: Normal symmetrical movements (0) 5. Motor arm: No drift (0) 6. Motor leg: No drift (0) 7. Limb ataxia: Absent (0) 8. Sensory: Normal (0) 9. Best language: No aphasia; normal (0) 10. Dysarthria: Normal (0) 11. Extinction and inattention: No abnormality (0) NIHSS: 0 Initial Vital Signs Initial Vital Signs: Vital Signs Temperature 98.0 F 03/07/21 18:04 Pulse Rate 111 H 03/07/21 18:04 Respiratory Rate 19 03/07/21 18:04 Blood Pressure 143/82 H 03/07/21 18:04 Pulse Oximetry 96 03/07/21 18:04 Course Orders Ordered: Discontinued Medications Diphenhydramine HCl (Diphenhydramine 50 Mg/Ml Vial) 25 mg IV NOW ONE Stop: 03/07/21 18:22 Last Admin: 03/07/21 18:41 Dose: 25 mg Documented by: BELINDA Hydromorphone HCl (Hydromorphone 0.5 Mg Inj) 0.5 mg IV NOW ONE Stop: 03/07/21 19:51 Last Admin: 03/07/21 19:55 Dose: 0.5 mg Documented by: BELINDA Sodium Chloride (Normal Saline 0.9%) 1,000 mls @ 1,000 mls/hr IV BOLUS ONE Stop: 03/07/21 19:20 Last Admin: 03/07/21 18:40 Dose: 1,000 mls/hr Documented by: BELINDA Ketorolac Tromethamine (Ketorolac 30 Mg/Ml Vial) 15 mg IV NOW ONE Stop: 03/07/21 18:22 Last Admin: 03/07/21 18:41 Dose: 15 mg Documented by: BELINDA Metoclopramide HCl (Metoclopramide 10 Mg/2 Ml Inj) 10 mg IV NOW ONE Stop: 03/07/21 18:22 Last Admin: 03/07/21 18:41 Dose: 10 mg Documented by: BELINDA Reevaluation(s) Reevaluation #1: Patient pain improved from 9 to a 6 or 7 after initial round of medications, we did discuss that use of opioids and the risks benefits including potential for rebound headache. Reevaluation #2: Patient has significant improvement after dilaudid, she is calling her ride Vital Signs Vital signs: Vital Signs - 8 hr 03/07/21 18:04 Temperature 98.0 F Pulse Rate 111 H Respiratory Rate 19 Blood Pressure 143/82 H Pulse Oximetry 96 MDM - Headache MDM Narrative Medical decision making narrative: Headache considerations include, but not limited to: Subarachnoid hemorrhage, but unlikely as patient denies sudden onset of pain, not worst of life, or neck pain Meningitis considered, but thought unlikely given lack of Brudzinski's, Kernig's sign, altered mental status or fever Giant cell arteritis considered, but thought unlikely given lack of unilateral findings, pain in episcopalian, vision change HTN Emergency considered, but thought unlikely given normal vitals Other serious diagnoses considered unlikely given lack of red flag findings such as sudden onset, increasing frequency, immunocompromise, systemic signs (fever, chills, stiff neck, or rash), focal neurologic findings, trauma, blood thinners, etc. Discharge Plan Departure Patient Disposition: Home Clinical Impression: Migraine headache Qualifiers: Migraine type: unspecified Status migrainosus presence: without status migrainosus Intractability: not intractable Qualified Code(s): G43.909 - Migraine, unspecified, not intractable, without status migrainosus Instructions: DI for Migraine Activity Restrictions/Additional Instructions: *You have been diagnosed with [migraine-type Headache ] *What to do: * continue to medications as directed *Follow up with your primary care provider in 2-3 days, call for an appointment. Let them know you were seen in the Emergency Department and that we ask that you be seen in follow up * as we discussed, because we had to use opioids to help control your headache you are at increased risk for a rebound headache *Return to ER if you should have any new, worsening or concerning symptoms, such as [ fever > 101F, neck pain or stiffness, vomiting, confusion, seizure, focal weakness, vision change, speech deficit or other concerning symptoms ] Prescriptions: No Action ondansetron HCl 4 mg tablet 4 mg PO DAILY PRN (Reason: nausea and vomiting) Qty: 90 RF: 3 sumatriptan succinate 50 mg tablet See Rx Instructions .ROUTE .COMPLEX Qty: 30 RF: 3 rizatriptan 10 mg tablet See Rx Instructions PO .COMPLEX Qty: 30 RF: 2 albuterol sulfate 90 mcg/actuation HFA aerosol inhaler See Rx Instructions .ROUTE .COMPLEX Qty: 18 RF: 2 clarithromycin 500 mg tablet 500 mg PO Q12H 4 Days Qty: 8 RF: 0 prednisone 50 mg tablet 50 mg PO DAILY 5 Days Qty: 5 RF: 0 famotidine 20 mg tablet 20 mg PO BID RF: 0 duloxetine 60 mg capsule,delayed release(DR/EC) 60 mg PO BID Qty: 180 RF: 3 buspirone 10 mg tablet 10 mg PO BEDTIME Qty: 90 RF: 3 buspirone 15 mg tablet 15 mg PO DAILY Qty: 90 RF: 3 loratadine [Claritin] 10 mg tablet 10 mg PO DAILY RF: 0 topiramate 25 mg tablet 25 mg PO DAILY Qty: 60 RF: 3 botox for h/a SUBCUT RF: 0 Referrals: Laly Napier ARNP [Primary Care Provider] -
[2021-03-07] MEDS: SODIUM CHLORIDE 0.9% 1,000 ML 1000 ML IV (18:40)
[2021-03-07] MEDS: METOCLOPRAMIDE 10 MG/2 ML INJ IV (18:41)
[2021-03-07] MEDS: KETOROLAC 30 MG/ML VIAL 15 MG IV (18:41)
[2021-03-07] MEDS: diphenhydrAMINE 50 MG/ML VIAL 25 MG IV (18:41)
[2021-03-07] MEDS: HYDROMORPHONE 0.5 MG INJ IV (19:55)
[2021-03-07 19:56] VITALS: PULSE 78; O2SAT 97
[2021-03-07 20:00] VITALS: PULSE 70; O2SAT 96
[2021-03-07 20:23] VITALS: BP 121/61; PULSE 79; O2SAT 95
== END 2021-03-07 20:36 | disposition home or self-care (01) ==
PROVIDERS: Emergency Provider Emergency Medicine; PCP Nurse Practitioner
DX: G43.909 Migraine, unspecified, not intractable, without status migrainosus (principal)
CPT/HCPCS: 96361; 96374; 96375; 99283; 99284; J1170; J1200; J1885; J2765

== ENCOUNTER 2021-03-09 18:31 | Emergency (ER) | payer OTHER, MEDICAID, SELFPAY ==
[2021-03-09 18:38] VITALS: BP 130/78; PULSE 85; TEMP 37.1; O2SAT 95; BMI 48.0
--- NOTE | 2021-03-09 20:06 | ED_ITS ---
HPI - Headache General Chief Complaint: Headache Stated Complaint: Really bad migrain, nausea, weakness,foggyness Time Seen by Provider: 03/09/21 19:51 Mode of arrival: Family Vehicle Limitations: no limitations History of Present Illness HPI Narrative: 35-year-old female former smoker with history of migraines and asthma presents with a chief complaint of a gradually worsening frontal headache. Patient was seen and evaluted two days ago for migraine and had expected response to typical medications. She went home and was doing well and followed up with her PCP today and headache had started coming back, perhaps worse now. She continues to deny any injury, she has had no fever chills and denies any neck pain. She is nauseated and has vomited a few times. She has no focal neurologic findings such as numbness, tingling or weakness. She does admittedly feel a bit foggy groggy. She has had no chest pain or shortness of breath. She was sent here for further evaluation suggesting that she may benefit from a CT scan. Related Data Home Medications Medication Instructions Recorded Confirmed loratadine 10 mg tablet (Claritin) 10 mg PO DAILY 10/23/18 03/04/21 botox for h/a SUBCUT 06/30/20 03/04/21 famotidine 20 mg tablet 20 mg PO BID 03/04/21 03/04/21 Previous Rx's Medication Instructions Recorded topiramate 25 mg tablet 25 mg PO DAILY #60 tab 01/27/20 ondansetron HCl 4 mg tablet 4 mg PO DAILY PRN #90 tab 08/10/20 rizatriptan 10 mg tablet See Rx Instructions PO .COMPLEX 01/05/21 #30 tab sumatriptan succinate 50 mg tablet See Rx Instructions .ROUTE 01/05/21 .COMPLEX #30 tab albuterol sulfate 90 mcg/actuation See Rx Instructions .ROUTE 02/19/21 aerosol inhaler .COMPLEX #18 g buspirone 15 mg tablet 15 mg PO DAILY #90 tab 03/04/21 alprazolam 0.5 mg tablet 0.5 mg PO BEDTIME PRN #3 tab 03/09/21 azithromycin 250 mg tablet 250 mg PO DAILY 5 Days #6 tab 03/09/21 buspirone 10 mg tablet 10 mg PO BID #90 tab 03/09/21 dihydroergotamine 0.5 mg/pump act. 1 spray INTRANASAL Q15M #8 ml 03/09/21 (4 mg/mL) nasal spray duloxetine 60 mg capsule,delayed 60 mg PO DAILY #180 cap 03/09/21 release naratriptan 2.5 mg tablet See Rx Instructions PO .COMPLEX 03/09/21 #20 tab Allergies Allergy/AdvReac Type Severity Reaction Status Date / Time promethazine [From PHENERGAN] Allergy Unknown Anxiety Verified 03/09/21 18:44 Review of Systems Review of Systems Narrative: GENERAL: Denies chills, fatigue, malaise, fever, sweats. HEENT: Denies sinus pain, ear pain, sore throat, difficulty swallowing, dizziness. RESPIRATORY: Denies dyspnea, cough, wheezing, hemoptysis, sputum. CARDIOVASCULAR: Denies chest pain, palpitations, orthopnea, edema, GASTROINTESTINAL: Denies nausea, vomiting, abdominal pain, diarrhea, constipation, melena. : Denies dysuria, frequency, incontinence, hematuria, urinary retention. MUSCULOSKELETAL: denies weakness, joint pain, or bony pain SKIN: Denies rash, skin lesions, or other NEUROLOGIC: Denies weakness, headache, numbness, change in speech, confusion, seizures, incoordination. PSYCHIATRIC: No concerning psychosocial issues. 12 point review of systems is negative except for those stated above Patient History Medical History ADHD Ankle pain (~2016) Bacterial vaginosis Chicken pox (~1992) Chlamydia (~2003) Depression with anxiety (~2002) Dysmenorrhea Dyspareunia Endometritis External otitis of right ear Foot pain (~2016) Fractures (~2017) Habitual snoring Heavy menstrual period (~2017) Intractable migraine with aura Irregular menses Left ovarian cyst Malpositioned IUD Menorrhagia with regular cycle Migraine headache (~1989) Ovarian cyst (~2016) Painful menstrual periods (~2014) Panic attack PID (pelvic inflammatory disease) (~2017) Tenderness of female pelvic organs URI (upper respiratory infection) Urticaria Vaginal discharge Vaginal pain Varicose veins of right lower extremity Vascular insufficiency of extremity Vertigo (~2014) Viral illness Family History Father Hyperlipidemia Hypertension Mother Mental health problem Brother Developmental disability Brother Angelman syndrome Sister Mental health problem Grandmother Lung cancer Hyperlipidemia Hypertension Stroke Grandfather Diabetes mellitus History of heart disease Hyperlipidemia Hypertension Stroke Congestive heart failure Grandmother Cancer Diabetes mellitus Hyperlipidemia Hypertension Stroke Dementia History of kidney transplant Social History household members: children Smoking Status: Former smoker Tobacco: How many years used: 15 second hand exposure: No alcohol intake: current substance use type: marijuana (smoke, once every 3 days) Smoking Status: Former smoker tobacco type: vaping alcohol intake frequency: a few times a month Substance Use Type: marijuana Exam Narrative Exam Narrative: GENERAL: [35 year old patient appears stated age. Well-developed patient, in mild distress. GCS 15 HEAD: Atraumatic. Normocephalic. EYES: Pupils equal round and reactive. Extraocular motions intact. No scleral icterus. No injection or drainage. ENT: Nose without bleeding, purulent drainage. Throat without erythema, tonsillar hypertrophy or exudate. Airway patent. NECK: Trachea midline. Non tender, no meningeal signs CARDIOVASCULAR: Regular rate and rhythm without murmurs, gallops, or rubs. RESPIRATORY: Clear to auscultation. Breath sounds equal bilaterally. No wheezes, rales, or rhonchi. GASTROINTESTINAL: Abdomen soft, non-tender, nondistended. EXTREMITIES: No edema or joint tenderness. BACK: Nontender without deformity or crepitance. No flank tenderness. NEURO: AOx3. Bilateral lower extremity reflexes intact, 2+, no hyperreflexia. No cogwheel rigidity, no clonus SKIN: No rash or erythema of visible areas Initial Vital Signs Initial Vital Signs: Vital Signs Temperature 98.7 F 03/09/21 18:38 Pulse Rate 85 03/09/21 18:38 Blood Pressure 130/78 03/09/21 18:38 Pulse Oximetry 95 03/09/21 18:38 Course Orders Ordered: ED Orders 03/09/21 23:25 EKG-12 Lead Stat Discontinued Medications Dexamethasone (Dexamethasone 10 Mg/Ml Vial) 10 mg IV NOW ONE Stop: 03/09/21 20:08 Last Admin: 03/09/21 20:34 Dose: 10 mg Documented by: ALBINO Diphenhydramine HCl (Diphenhydramine 50 Mg/Ml Vial) 25 mg IV NOW ONE Stop: 03/09/21 20:08 Last Admin: 03/09/21 20:35 Dose: 25 mg Documented by: ALBINO Hydromorphone HCl (Hydromorphone 0.5 Mg Inj) 0.5 mg IV NOW ONE Stop: 03/09/21 22:11 Last Admin: 03/09/21 22:15 Dose: 0.5 mg Documented by: ALBINO Sodium Chloride (Normal Saline 0.9%) 1,000 mls @ 1,000 mls/hr IV BOLUS ONE Stop: 03/09/21 21:06 Last Infusion: 03/09/21 21:35 Dose: 0 mls/hr Documented by: Admin: 03/09/21 20:34 Dose: 1,000 mls/hr Documented by: ALBINO Ketorolac Tromethamine (Ketorolac 30 Mg/Ml Vial) 15 mg IV NOW ONE Stop: 03/09/21 20:08 Last Admin: 03/09/21 20:35 Dose: 15 mg Documented by: ALBINO Metoclopramide HCl (Metoclopramide 10 Mg/2 Ml Inj) 10 mg IV NOW ONE Stop: 03/09/21 20:08 Last Admin: 03/09/21 20:35 Dose: 10 mg Documented by: ALBINO Reevaluation(s) Reevaluation #1: Patient demonstrating significant improvement in symptoms after the above-stated therapies. Near the end of the visit, almost time for discharge she mentions that she has in fact had a new medications and she forgot the talus. She states her symptoms started soon after doubling her dose of SSRI. Vital Signs Vital signs: Vital Signs - 8 hr 03/09/21 23:26 Pulse Rate 60 Blood Pressure 134/68 Pulse Oximetry 95 MDM - Headache Imaging Data CT scan - head: Radiologist's Impression: Charmaine Lindquist N??35??F??1985 ? Allergy/Adv: promethazine Close Head CT (Signed) Dulce Briggs - 03/09/21 DI Result CC 09/01/20 Ankle X-Ray (Signed) Seun Zelaya - 08/08/20 Ankle X-Ray (Signed) Truong Licona - 06/30/20 Pelvis Ultrasound (Signed) Silvina Morales - 02/24/20 Chest X-Ray (Signed) Dulce Briggs - 06/14/19 Pelvis Ultrasound (Signed) Dulce Briggs - 10/18/18 Abdomen Ultrasound (Signed) LivanTruong - 10/18/18 Knee X-Ray (Signed) Elier Monterroso - 04/16/18 Ankle X-Ray (Signed) Elier Monterroso - 04/16/18 Radiology - Historical 12/14/16 Launch?[address] [address] [address] Scan Report Signed Patient: Charmaine Lindquist MR#: [id number] : 1985 Acct:[id number] Age/Sex: 35 / F Date of Service: 03/09/21 Loc: ED Accession Number: [id number] ?? Procedure: CT head/brain wo con Ordering Provider: Tato Jama D.O. PROCEDURE:? CT HEAD/BRAIN WO CON ? INDICATIONS:? headache pattern changed, return visit ? TECHNIQUE:? Noncontrast 4.5 mm thick angled axial sections acquired from the foramen magnum to the vertex, with coronal and sagittal reformats.? For radiation dose reduction, the following was used:? automated exposure control, adjustment of mA and/or kV according to patient size.? ? COMPARISON:? None. ? FINDINGS:? Image quality:? Excellent.? ? CSF spaces:? Basal cisterns are patent.? No extra-axial fluid collections.? Ventricles are normal in size and shape.? ? Brain:? No midline shift.? No intracranial masses or hemorrhage.? Denson-white matter interface is normal.? ? Skull and face:? Calvarium and visualized facial bones are intact, without suspicious lesions.? ? Sinuses:? Visualized sinuses demonstrate sinus mucous retention cyst versus polyp. ? IMPRESSION:? ? 1. No acute intracranial process. ? Dictated by: Dulce Briggs M.D. on 03/09/2021 at 20:40 ? ? Approved by: Dulce Briggs M.D. on 03/09/2021 at 20:41 ? MDM Narrative Medical decision making narrative: Headache considerations include, but not limited to: Subarachnoid hemorrhage, but unlikely as patient denies sudden onset of pain, not worst of life, or neck pain Meningitis considered, but thought unlikely given lack of Brudzinski's, Kernig's sign, altered mental status or fever Giant cell arteritis considered, but thought unlikely given lack of unilateral findings, pain in druze, vision change Serotonin syndrome considered, however patient has had no fever, agitation, abnormal reflexes, clonus or other classic findings. HTN Emergency considered, but thought unlikely given normal vitals Other serious diagnoses considered unlikely given lack of red flag findings such as sudden onset, increasing frequency, immunocompromise, systemic signs (fever, chills, stiff neck, or rash), focal neurologic findings, trauma, blood thinners, etc. Discharge Plan Departure Patient Disposition: Home Clinical Impression: Headache Qualifiers: Headache type: unspecified Headache chronicity pattern: unspecified pattern Intractability: not intractable Qualified Code(s): R51.9 - Headache, unspecified Instructions: DI for Headache Activity Restrictions/Additional Instructions: *You have been diagnosed with [recurrence of headache, with reassuring response to medications. Your CT scan was unremarkable. As we discussed there may be an element that links your headache to the recent increase in your antidepressant. *What to do: *Please return to your previous dosing of your antidepressant, otherwise please continue to take your regular medications as directed. [ ] New medication prescriptions sent to your pharmacy: [ ] [ ] New medication written as a paper prescription [x ] No new medications given *Please follow up with your primary care provider in 2-3 days, call for an appointment. Let them know you were seen in the Emergency Department and that we ask that you be seen in follow up. We will electronically transmit a record of today's note if your PCP is in our system *If you do not have a primary care provider please contact the [facility] Resource line at [phone]. They will ask some questions about your medical history and help get you set up with a doctor in the community. *Return to Emergency Department if you should have any new, worsening or saul rning symptoms, such as [fever greater than 101 F, shaking chills, worsening pain, persistent vomiting or other bothersome symptoms] Prescriptions: No Action ondansetron HCl 4 mg tablet 4 mg PO DAILY PRN (Reason: nausea and vomiting) Qty: 90 RF: 3 sumatriptan succinate 50 mg tablet See Rx Instructions .ROUTE .COMPLEX Qty: 30 RF: 3 Hold Instructions: trialing noratriptan rizatriptan 10 mg tablet See Rx Instructions PO .COMPLEX Qty: 30 RF: 2 Hold Instructions: trialing noratriptan albuterol sulfate 90 mcg/actuation HFA aerosol inhaler See Rx Instructions .ROUTE .COMPLEX Qty: 18 RF: 2 famotidine 20 mg tablet 20 mg PO BID RF: 0 buspirone 15 mg tablet 15 mg PO DAILY Qty: 90 RF: 3 Hold Instructions: decrease dosing alprazolam 0.5 mg tablet 0.5 mg PO BEDTIME PRN (Reason: pre-procedure sedation) Qty: 3 RF: 0 dihydroergotamine 0.5 mg/pump act. (4 mg/mL) spray,non-aerosol 1 spray intranasal Q15M Qty: 8 RF: 1 azithromycin 250 mg tablet 250 mg PO DAILY 5 Days Qty: 6 RF: 0 naratriptan 2.5 mg tablet See Rx Instructions PO .COMPLEX Qty: 20 RF: 0 duloxetine 60 mg capsule,delayed release(DR/EC) 60 mg PO DAILY Qty: 180 RF: 3 buspirone 10 mg tablet 10 mg PO BID Qty: 90 RF: 3 loratadine [Claritin] 10 mg tablet 10 mg PO DAILY RF: 0 topiramate 25 mg tablet 25 mg PO DAILY Qty: 60 RF: 3 botox for h/a SUBCUT RF: 0 Referrals: Laly Napier ARNP [Primary Care Provider] -
--- NOTE | 2021-03-09 20:07 | DI.CT.S_ITS ---
PROCEDURE: CT HEAD/BRAIN WO CON INDICATIONS: headache pattern changed, return visit TECHNIQUE: Noncontrast 4.5 mm thick angled axial sections acquired from the foramen magnum to the vertex, with coronal and sagittal reformats. For radiation dose reduction, the following was used: automated exposure control, adjustment of mA and/or kV according to patient size. COMPARISON: None. FINDINGS: Image quality: Excellent. CSF spaces: Basal cisterns are patent. No extra-axial fluid collections. Ventricles are normal in size and shape. Brain: No midline shift. No intracranial masses or hemorrhage. Denson-white matter interface is normal. Skull and face: Calvarium and visualized facial bones are intact, without suspicious lesions. Sinuses: Visualized sinuses demonstrate sinus mucous retention cyst versus polyp. IMPRESSION: 1. No acute intracranial process. Dictated by: Dulce Briggs M.D. on 03/09/2021 at 20:40 Approved by: Dulce Briggs M.D. on 03/09/2021 at 20:41
[2021-03-09] MEDS: DEXAMETHASONE 10 MG/ML VIAL IV (20:34)
[2021-03-09] MEDS: SODIUM CHLORIDE 0.9% 1,000 ML 1000 ML IV (20:34)
[2021-03-09] MEDS: diphenhydrAMINE 50 MG/ML VIAL 25 MG IV (20:35)
[2021-03-09] MEDS: METOCLOPRAMIDE 10 MG/2 ML INJ IV (20:35)
[2021-03-09] MEDS: KETOROLAC 30 MG/ML VIAL 15 MG IV (20:35)
[2021-03-09 21:04] VITALS: O2SAT 87
[2021-03-09 21:05] VITALS: BP 121/59; PULSE 60; PULSE 69; O2SAT 94; O2SAT 96
[2021-03-09] MEDS: HYDROMORPHONE 0.5 MG INJ IV (22:15)
[2021-03-09 23:26] VITALS: BP 134/68; PULSE 60; O2SAT 95
== END 2021-03-10 00:24 | disposition home or self-care (01) ==
PROVIDERS: Emergency Provider Emergency Medicine; PCP Nurse Practitioner
DX: R51.9 Headache, unspecified (principal)
CPT/HCPCS: 70450; 93005; 93010; 96361; 96374; 96375; 99284; J1100; J1170; J1200; J1885; J2765

== ENCOUNTER 2021-03-16 17:31 | Emergency (ER) | payer OTHER, MEDICAID, SELFPAY ==
[2021-03-16] VITALS (15 sets, daily range): BP systolic 121–141; BP diastolic 89–101; PULSE 70–93; RESP 18; TEMP 36.2–37; O2SAT 91–99; BMI 48.0
[2021-03-16 18:18] LABS: COVID19 -Nasal RAPID Negative (Negative)
--- NOTE | 2021-03-16 20:38 | DI.RAD.S_ITS ---
PROCEDURE: XR CHEST 2V INDICATIONS: cough TECHNIQUE: 2 views of the chest were acquired. COMPARISON: [facility], CR, XR CHEST 2V, 06/14/2019, 15:28. FINDINGS: Surgical changes and devices: None. Lungs and pleura: Lungs are clear. No pleural effusions or pneumothorax. Mediastinum: Mediastinal contours are normal. Heart size is normal. Bones and chest wall: No suspicious bony abnormalities. Soft tissues appear unremarkable. IMPRESSION: 1. No acute cardiopulmonary disease. Dictated by: Abraham Leo M.D. on 03/16/2021 at 20:58 Approved by: Abraham Leo M.D. on 03/16/2021 at 20:59
--- NOTE | 2021-03-16 20:40 | ED.URI ---
HPI - URI/Sore Throat General Chief Complaint: Upper Respiratory Symptoms Stated Complaint: cough, chest and back hurt, stuffy,fatigued Time Seen by Provider: 03/16/21 20:26 Source: patient Mode of arrival: Ambulatory Limitations: no limitations History of Present Illness HPI Narrative: 35-year-old woman with multiple chronic medical issues including anxiety depression, chronic sinus issues for which she has and ENT follow-up in mid March, seasonal allergies, chronic headache with migraine who presents with general malaise and ?just not feeling good, for the last 24 hours. She is having an increasing cough occasionally productive of greenish sputum, fatigue, throat hurts left ear pain chest and upper back pain with deep breathing and coughing. She has been sick last week and she in her provider thought that perhaps this was mild serotonin syndrome as she improved with decreasing her antidepressants. Over the last month she has been treated multiple times for chronic sinusitis with Augmentin followed by clarithromycin and eventually is the PAC that finally led to symptomatic relief. She was in the emergency department last week for chronic migraine and ended up having a CT scan of the brain March 09 that showed no acute sinusitis issues. She describes low-grade fevers, mild nausea, no vomiting, no abdominal pain constipation or diarrhea. She is not having any palpitations. Related Data Home Medications Medication Instructions Recorded Confirmed loratadine 10 mg tablet (Claritin) 10 mg PO DAILY 10/23/18 03/04/21 botox for h/a SUBCUT 06/30/20 03/04/21 famotidine 20 mg tablet 20 mg PO BID 03/04/21 03/04/21 Previous Rx's Medication Instructions Recorded topiramate 25 mg tablet 25 mg PO DAILY #60 tab 01/27/20 ondansetron HCl 4 mg tablet 4 mg PO DAILY PRN #90 tab 08/10/20 albuterol sulfate 90 mcg/actuation See Rx Instructions .ROUTE 02/19/21 aerosol inhaler .COMPLEX #18 g duloxetine 60 mg capsule,delayed 60 mg PO DAILY #180 cap 03/09/21 release naratriptan 2.5 mg tablet See Rx Instructions PO .COMPLEX 03/09/21 #20 tab buspirone 10 mg tablet 10 mg PO ONCE #90 tab 03/11/21 lisdexamfetamine 10 mg capsule 10 mg PO QAM #30 cap 03/11/21 alprazolam 0.5 mg tablet 0.5 mg PO BEDTIME PRN #3 tab 03/16/21 Allergies Allergy/AdvReac Type Severity Reaction Status Date / Time promethazine [From PHENERGAN] Allergy Unknown Anxiety Verified 03/16/21 17:42 Review of Systems Review of Systems Narrative: Remainder of complete review of systems is otherwise unremarkable except for that included in the HPI. Patient History Medical History ADHD Ankle pain (~2016) Bacterial vaginosis Chicken pox (~1992) Chlamydia (~2003) Depression with anxiety (~2002) Dysmenorrhea Dyspareunia Endometritis External otitis of right ear Foot pain (~2016) Fractures (~2017) Habitual snoring Heavy menstrual period (~2016) Intractable migraine with aura Irregular menses Left ovarian cyst Malpositioned IUD Menorrhagia with regular cycle Migraine headache (~1989) Ovarian cyst (~2016) Painful menstrual periods (~2014) Panic attack PID (pelvic inflammatory disease) (~2016) Tenderness of female pelvic organs URI (upper respiratory infection) Urticaria Vaginal discharge Vaginal pain Varicose veins of right lower extremity Vascular insufficiency of extremity Vertigo (~2014) Viral illness Family History Father Hyperlipidemia Hypertension Mother Mental health problem Brother Developmental disability Brother Angelman syndrome Sister Mental health problem Grandmother Lung cancer Hyperlipidemia Hypertension Stroke Grandfather Diabetes mellitus History of heart disease Hyperlipidemia Hypertension Stroke Congestive heart failure Grandmother Cancer Diabetes mellitus Hyperlipidemia Hypertension Stroke Dementia History of kidney transplant Social History household members: children Smoking Status: Former smoker Tobacco: How many years used: 15 second hand exposure: No alcohol intake: current substance use type: marijuana (smoke, once every 3 days) Smoking Status: Former smoker tobacco type: vaping alcohol intake frequency: a few times a month Substance Use Type: marijuana Exam Narrative Exam Narrative: General: Healthy appearing, mildly fatigued but in no acute distress. Able to give a complete and coherent history. Well-nourished well-developed HEENT: Moist mucous membranes, normal sclera with reactive pupils, no pharyngeal erythema Neck: No JVD, supple Respiratory: Lungs are clear to auscultation, no wheezing no rales no rhonchi. Full and symmetrical air movement Cardiac: Regular rate and rhythm no murmurs no bruits Abdomen: Soft, nontender, good bowel tones, no flank pain Skin: Warm and dry, no rashes Neurologic: Grossly neurologically intact with no obvious asymmetries or abnormalities Extremities: No trauma, well perfused Psych: Cooperative, appropriate insight and affect Initial Vital Signs Initial Vital Signs: Vital Signs Temperature 98.6 F 03/16/21 17:38 Pulse Rate 88 03/16/21 17:38 Respiratory Rate 18 03/16/21 17:38 Blood Pressure 141/101 H 03/16/21 17:38 Pulse Oximetry 95 03/16/21 17:38 Course Orders Ordered: ED Orders 03/16/21 17:43 COVID19 -Nasal swab/Pre-Proc Stat 03/16/21 20:38 XR chest 2V Stat 03/16/21 21:00 Respiratory Panel (Film Array) Stat 03/16/21 21:10 Complete Blood Count AUTO DIFF Stat Comprehensive Metabolic Panel Stat Vital Signs Vital signs: Vital Signs - 8 hr 03/16/21 17:38 03/16/21 19:19 03/16/21 19:20 Temperature 98.6 F Pulse Rate 88 89 93 H Respiratory Rate 18 Blood Pressure 141/101 H 121/89 Pulse Oximetry 95 98 97 03/16/21 19:30 03/16/21 20:00 03/16/21 20:30 Temperature Pulse Rate 84 77 75 Respiratory Rate Blood Pressure Pulse Oximetry 96 98 98 03/16/21 21:00 03/16/21 21:30 03/16/21 22:00 Temperature Pulse Rate 76 75 70 Respiratory Rate Blood Pressure Pulse Oximetry 98 98 96 MDM - URI/Sore Throat Lab Data Result diagrams: 03/16/21 21:10 03/16/21 21:10 Labs: Lab Results 03/16/21 03/16/21 03/16/21 Range/Units 17:43 21:00 21:10 WBC 8.4 (4.5-11.0) X10^3/uL RBC 5.17 (4.0-5.2) X10^6/uL Hgb 14.9 (12.0-16.0) g/dL Hct 44.5 (36-46) % MCV 86.0 (80-100) fL MCH 28.8 (26-34) PG MCHC 33.4 (30-36) % RDW 14.1 (11.6-14.8) % Plt Count 204 (150-400) X10^3/uL Neut % (Auto) 68.3 (50-75) % Lymph % (Auto) 22.4 L (25-40) % Nance % (Auto) 7.9 (3-14) % Eos % (Auto) 0.8 L (2-4) % Baso % (Auto) 0.6 (0-2) % Neut # (Auto) 5800 (2098-6865) /uL Lymph # (Auto) 1900 (3963-0337) /uL Nance # (Auto) 700 (0-900) /uL Eos # (Auto) 100 (0-450) /uL Baso # (Auto) 0 (0-100) /uL Sodium (137-145) mmol/L Potassium (3.4-5.1) mmol/L Chloride (98-107) mmol/L Carbon Dioxide (22-32) mmol/L BUN (7-17) mg/dL Creatinine (0.52-1.04) mg/dL Estimated GFR (>60) mL/min BUN/Creatinine Ratio (6-22) Glucose (70-100) mg/dL Calcium (8.4-10.2) mg/dL Total Bilirubin (0.2-1.3) mg/dL AST (14-36) IU/L ALT (<35) IU/L Alkaline Phosphatase (38-126) U/L Total Protein (6.3-8.2) g/dL Albumin (3.5-5.0) g/dL Globulin (1.7-4.1) g/dL Albumin/Globulin Ratio (1.0-2.8) Chlamy pneumoniae PCR Not detected (Not Detect) Adenovirus (PCR) Not detected (Not Detect) B. pertussis DNA (PCR) Not detected (Not Detecte) B.parapertussis DNA PCR Not detected (Not Detecte) Coronavirus OC43 (PCR) Not detected (Not Detect) Coronavirus HKU1 (PCR) Not detected (Not Detect) Coronavirus 229E (PCR) Not detected (Not Detect) SARS-CoV-2 (PCR) Negative Not detected (Negative) Coronavirus NL63 (PCR) Not detected (Not Detect) Human Metapneumovir PCR Not detected (Not Detect) Influenza Type A (PCR) Not detected (Not Detect) Influenza Type B (PCR) Not detected (Not Detect) M. pneumoniae (PCR) Not detected (Not Detect) Parainfluenza 1 (PCR) Not detected (Not Detect) Parainfluenza 2 (PCR) Not detected (Not Detect) Parainfluenza 3 (PCR) Not detected (Not Detect) Parainfluenza 4 (PCR) Not detected (Not Detect) RSV (PCR) Not detected (Not Detect) Entero/Rhino (PCR) Detected H (Not Detect) 03/16/21 Range/Units 21:10 WBC (4.5-11.0) X10^3/uL RBC (4.0-5.2) X10^6/uL Hgb (12.0-16.0) g/dL Hct (36-46) % MCV (80-100) fL MCH (26-34) PG MCHC (30-36) % RDW (11.6-14.8) % Plt Count (150-400) X10^3/uL Neut % (Auto) (50-75) % Lymph % (Auto) (25-40) % Nance % (Auto) (3-14) % Eos % (Auto) (2-4) % Baso % (Auto) (0-2) % Neut # (Auto) (7059-1567) /uL Lymph # (Auto) (1435-4325) /uL Nance # (Auto) (0-900) /uL Eos # (Auto) (0-450) /uL Baso # (Auto) (0-100) /uL Sodium 141 (137-145) mmol/L Potassium 4.1 (3.4-5.1) mmol/L Chloride 105 (98-107) mmol/L Carbon Dioxide 27 (22-32) mmol/L BUN 11 (7-17) mg/dL Creatinine 0.63 (0.52-1.04) mg/dL Estimated GFR > 60.0 (>60) mL/min BUN/Creatinine Ratio 17.5 (6-22) Glucose 83 (70-100) mg/dL Calcium 9.5 (8.4-10.2) mg/dL Total Bilirubin 0.5 (0.2-1.3) mg/dL AST 16 (14-36) IU/L ALT 17 (<35) IU/L Alkaline Phosphatase 60 (38-126) U/L Total Protein 7.0 (6.3-8.2) g/dL Albumin 4.1 (3.5-5.0) g/dL Globulin 2.9 (1.7-4.1) g/dL Albumin/Globulin Ratio 1.4 (1.0-2.8) Chlamy pneumoniae PCR (Not Detect) Adenovirus (PCR) (Not Detect) B. pertussis DNA (PCR) (Not Detecte) B.parapertussis DNA PCR (Not Detecte) Coronavirus OC43 (PCR) (Not Detect) Coronavirus HKU1 (PCR) (Not Detect) Coronavirus 229E (PCR) (Not Detect) SARS-CoV-2 (PCR) (Negative) Coronavirus NL63 (PCR) (Not Detect) Human Metapneumovir PCR (Not Detect) Influenza Type A (PCR) (Not Detect) Influenza Type B (PCR) (Not Detect) M. pneumoniae (PCR) (Not Detect) Parainfluenza 1 (PCR) (Not Detect) Parainfluenza 2 (PCR) (Not Detect) Parainfluenza 3 (PCR) (Not Detect) Parainfluenza 4 (PCR) (Not Detect) RSV (PCR) (Not Detect) Entero/Rhino (PCR) (Not Detect) Point of Care Testing Rapid Strep A Negative Imaging Data Head CT from 03/09: Radiologist's Impression: FINDINGS:? Image quality:? Excellent.? ? CSF spaces:? Basal cisterns are patent.? No extra-axial fluid collections.? Ventricles are normal in size and shape.? ? Brain:? No midline shift.? No intracranial masses or hemorrhage.? Denson-white matter interface is normal.? ? Skull and face:? Calvarium and visualized facial bones are intact, without suspicious lesions.? ? Sinuses:? Visualized sinuses demonstrate sinus mucous retention cyst versus polyp. ? IMPRESSION:? ? 1. No acute intracranial process. ? Dictated by: Dulce Briggs M.D. on 03/09/2021 at 20:40 ? ? MDM Narrative Medical decision making narrative: 35-year-old woman with multiple medical issues concerned that she needs additional antibiotics for developing bacterial infection. Was directed by her primary care physician to come to the emergency department for further evaluation. She has had multiple recent courses of antibiotics for recurrent sinusitis with no evidence of sinus abnormalities on recent sinus CT scans. He given her additional complex medical issues will go ahead and be a bit more thorough with exam today including chest x-ray, basic blood work, respiratory panel. I suspect that this is all viral however would like some more clinical detail to assure her that additional interventions and antibiotics are not going to be of any affect. Respiratory panel returns with rhino virus. This is absolutely consistent with her symptoms. Reassurance is given. Antibiotics are not prescribed and patient is safe for discharge home Discharge Plan Departure Patient Disposition: Home Clinical Impression: Acute bronchitis due to Rhinovirus Instructions: DI for Viral Upper Respiratory Infection -- Adult Activity Restrictions/Additional Instructions: Thank you for coming in today Sorry that you have been having such a difficult time recently. Today, the respiratory panel shows that you do not have COVID but you do have rhino virus. This is 1 of the most common viruses associated with the ?common cold?. You do not have any evidence of bacterial infection or pneumonia. There is no sign of sepsis or other reasons for hospital admission. Time is going to be the best medicine for your rhinovirus. Antibiotics are not going to be effective. Please make sure you are drinking plenty of fluids. Using 400 mg of ibuprofen (2 [id number] pills) and 1 Tylenol every 6 hours can be very helpful in controlling pain. Most viruses are going to take 7-10 days to resolve. Prescriptions: No Action ondansetron HCl 4 mg tablet 4 mg PO DAILY PRN (Reason: nausea and vomiting) Qty: 90 RF: 3 albuterol sulfate 90 mcg/actuation HFA aerosol inhaler See Rx Instructions .ROUTE .COMPLEX Qty: 18 RF: 2 alprazolam 0.5 mg tablet 0.5 mg PO BEDTIME PRN (Reason: pre-procedure sedation) Qty: 3 RF: 0 famotidine 20 mg tablet 20 mg PO BID RF: 0 naratriptan 2.5 mg tablet See Rx Instructions PO .COMPLEX Qty: 20 RF: 0 duloxetine 60 mg capsule,delayed release(DR/EC) 60 mg PO DAILY Qty: 180 RF: 3 loratadine [Claritin] 10 mg tablet 10 mg PO DAILY RF: 0 topiramate 25 mg tablet 25 mg PO DAILY Qty: 60 RF: 3 botox for h/a SUBCUT RF: 0 buspirone 10 mg tablet 10 mg PO ONCE Qty: 90 RF: 3 lisdexamfetamine 10 mg capsule 10 mg PO QAM Qty: 30 RF: 0 Referrals: Laly Napier ARNP [Primary Care Provider] -
[2021-03-16 21:28] LABS: Add Manual Diff / Slide Review NO; Basophils Absolute Auto 0 /uL (0-100); Basophils Percent Auto 0.6 % (0-2); Eosinophils Absolute Auto 100 /uL (0-450); Eosinophils Percent Auto 0.8 % (2-4); Hematocrit 44.5 % (36-46); Hemoglobin 14.9 g/dL (12.0-16.0); Lymphocytes Absolute Auto 1900 /uL (1100-4500); Lymphocytes Percent Auto 22.4 % (25-40); Mean Corpuscular HGB Conc 33.4 % (30-36); Mean Corpuscular Hemoglobin 28.8 PG (26-34); Monocytes Absolute Auto 700 /uL (0-900); Monocytes Percent Auto 7.9 % (3-14); Neutrophils Absolute Auto 5800 /uL (1500-7000); Neutrophils Percent Auto 68.3 % (50-75); Platelet Count 204 X10^3/uL (150-400); Red Blood Cell Count 5.17 X10^6/uL (4.0-5.2); Red Cell Distribution Width 14.1 % (11.6-14.8); White Blood Cell Count 8.4 X10^3/uL (4.5-11.0)
[2021-03-16 21:37] LABS: Alanine Aminotransferase 17 IU/L (<35); Albumin 4.1 g/dL (3.5-5.0); Albumin Globulin Ratio 1.4 (1.0-2.8); Alkaline Phosphatase 60 U/L (38-126); Aspartate Aminotransferase 16 IU/L (14-36); BUN Creatinine Ratio 17.5 (6-22); Bilirubin Total 0.5 mg/dL (0.2-1.3); Blood Urea Nitrogen 11 mg/dL (7-17); Calcium 9.5 mg/dL (8.4-10.2); Carbon Dioxide 27 mmol/L (22-32); Chloride 105 mmol/L (98-107); Estimated Glomerular Filt Rate > 60.0 mL/min (>60); Globulin 2.9 g/dL (1.7-4.1); Glucose 83 mg/dL (70-100); HEMOLYSIS < 15 (0-50); Potassium 4.1 mmol/L (3.4-5.1); Sodium 141 mmol/L (137-145)
[2021-03-16 23:04] LABS: Adenovirus Not Detected (Not Detect); B. parapertussis Not Detected (Not Detecte); Bordetella pertussis Not Detected (Not Detecte); Chlamydophila pneumoniae Not Detected (Not Detect); Coronavirus 229E Not Detected (Not Detect); Coronavirus HKU1 Not Detected (Not Detect); Coronavirus NL 63 Not Detected (Not Detect); Coronavirus OC43 Not Detected (Not Detect); Human Metapneumovirus Not Detected (Not Detect); Human Rhinovirus/Enterovirus Detected (Not Detect); Influenza A Not Detected (Not Detect); Influenza B Not Detected (Not Detect); Mycoplasma pneumoniae Not Detected (Not Detect); Parainfluenza Virus 1 Not Detected (Not Detect); Parainfluenza Virus 2 Not Detected (Not Detect); Parainfluenza Virus 3 Not Detected (Not Detect); Parainfluenza Virus 4 Not Detected (Not Detect); Respiratory Syncytial Virus Not Detected (Not Detect); SARS- CoV-2 Not Detected (Not Detecte)
== END 2021-03-16 23:51 | disposition home or self-care (01) ==
PROVIDERS: Emergency Medicine; Emergency Provider Emergency Medicine; PCP Nurse Practitioner
DX: J20.6 Acute bronchitis due to rhinovirus (principal); Z87.891 Personal history of nicotine dependence; Z20.822 Contact with and (suspected) exposure to COVID-19
CPT/HCPCS: 71046; 80053; 85025; 87633; 87635; 87880; 99282; 99284; C9803

== ENCOUNTER → 2021-03-19 16:21 | Outpatient (CLI) | payer OTHER, MEDICAID, SELFPAY ==
--- NOTE | 2021-03-19 16:22 | DI.MRI.S_ITS ---
PROCEDURE: MR BRAIN (IAC) WWO CON INDICATIONS: Worsening migraines TECHNIQUE: Noncontrast sagittal T1 spin echo, axial FLAIR, axial gradient echo, axial diffusion and ADC through the brain. Axial thin-slice 3D CISS, coronal TruFISP, axial T1 spin echo with fat saturation through the internal auditory canals. After the administration of contrast, thin slice axial and coronal T1 spin echo with fat saturation through the internal auditory canals, and axial T1 spin echo with fat saturation through the brain. COMPARISON: [facility], CT, CT HEAD/BRAIN WO CON, 03/09/2021, 20:18. FINDINGS: Image quality: Excellent. Cerebellopontine angles: No cerebellopontine angle masses. Inner ear structures appear normally formed. No suspicious enhancement in the internal auditory canal or along the course of the 7th cranial nerve. CSF spaces: Ventricles are normal in size and shape. No extra-axial fluid collections. Basal cisterns are patent. Brain: No intracranial bleeds or mass effects. Denson-white matter interface is intact. No abnormal intracranial enhancement. Diffusion weighted images demonstrate no acute ischemic insults. Brainstem appears normal. Normal intravascular flow voids are present. And a focal empty sella can be seen, with the pituitary tissue flattened along the floor of the sella turcica. This is most typically and idiopathic, incidental finding. Skull and face: Calvarial marrow signal is normal. Orbits appear normal. Sinuses: There is a mucous retention cyst seen within the left maxillary sinus. Mild mucosal thickening can be seen within the paranasal sinuses. No abnormal fluid is seen within the mastoid air cells. IMPRESSION: No significant abnormality is seen. Specifically, no masses or abnormal enhancement are seen within the cerebellopontine angle cisterns or within the internal auditory canals. Dictated by: Elier Monterroso M.D. on 03/19/2021 at 16:49 Approved by: Elier Monterroso M.D. on 03/19/2021 at 16:51
== END ==
PROVIDERS: PCP Nurse Practitioner; Referring Provider Nurse Practitioner; Visit Provider Nurse Practitioner
DX: G43.909 Migraine, unspecified, not intractable, without status migrainosus (principal)
CPT/HCPCS: 70553; A9579

== ENCOUNTER → 2021-03-24 16:16 | Outpatient (CLI) | payer OTHER, MEDICAID, SELFPAY ==
[2021-03-24 17:27] LABS: Add Manual Diff / Slide Review NO; Basophils Absolute Auto 0 /uL (0-100); Basophils Percent Auto 0.5 % (0-2); Eosinophils Absolute Auto 100 /uL (0-450); Eosinophils Percent Auto 1.4 % (2-4); Hematocrit 42.6 % (36-46); Hemoglobin 14.7 g/dL (12.0-16.0); Lymphocytes Absolute Auto 2200 /uL (1100-4500); Lymphocytes Percent Auto 33.2 % (25-40); Mean Corpuscular HGB Conc 34.6 % (30-36); Mean Corpuscular Hemoglobin 28.8 PG (26-34); Mean Corpuscular Volume 83.4 fL (80-100); Monocytes Absolute Auto 400 /uL (0-900); Monocytes Percent Auto 6.1 % (3-14); Neutrophils Absolute Auto 3900 /uL (1500-7000); Neutrophils Percent Auto 58.8 % (50-75); Platelet Count 206 X10^3/uL (150-400); Red Blood Cell Count 5.11 X10^6/uL (4.0-5.2); Red Cell Distribution Width 13.6 % (11.6-14.8); White Blood Cell Count 6.7 X10^3/uL (4.5-11.0)
[2021-03-24 17:44] LABS: C-Reactive Protein Quant < 0.5 mg/dL (<1.0)
[2021-03-24 17:58] LABS: Prolactin 24.2 ng/mL (3.0-18.6)
[2021-03-24 18:51] LABS: Erythrocyte Sedimentation Rate 14 MM/HR (0-20)
[2021-03-25 05:58] LABS: Rheumatoid Factor < 8.6 IU/mL (<12.0)
[2021-03-26 17:32] LABS: ANA Screen, IFA Negative (.)
== END ==
PROVIDERS: PCP Nurse Practitioner; Referring Provider Nurse Practitioner; Visit Provider Nurse Practitioner
DX: M25.50 Pain in unspecified joint (principal); M79.10 Myalgia, unspecified site; Z83.2 Family history of diseases of the blood and blood-forming organs and certain disorders involving the immune mechanism; E23.6 Other disorders of pituitary gland
CPT/HCPCS: 36415; 84146; 85025; 85651; 86038; 86140; 86430

== ENCOUNTER 2021-10-05 11:19 | Emergency (ER) | payer OTHER, MEDICAID, SELFPAY ==
[2021-10-05 11:27] VITALS: BP 157/89; PULSE 77; RESP 17; TEMP 36.6; O2SAT 97; BMI 48.7
--- NOTE | 2021-10-05 15:12 | PC.NURSE ---
Cancelled Urine preg. Pt has tubes tied
[2021-10-05 15:58] LABS: Add Manual Diff / Slide Review NO; Alanine Aminotransferase 16 IU/L (<35); Albumin 4.7 g/dL (3.5-5.0); Albumin Globulin Ratio 1.5 (1.0-2.8); Alkaline Phosphatase 63 U/L (38-126); Aspartate Aminotransferase 22 IU/L (14-36); BUN Creatinine Ratio 21.2 (6-22); Basophils Absolute Auto 0 /uL (0-100); Basophils Percent Auto 0.4 % (0-2); Bilirubin Total 0.6 mg/dL (0.2-1.3); Blood Urea Nitrogen 14 mg/dL (7-17); Calcium 9.1 mg/dL (8.4-10.2); Carbon Dioxide 27 mmol/L (22-32); Chloride 105 mmol/L (98-107); Eosinophils Absolute Auto 200 /uL (0-450); Eosinophils Percent Auto 1.9 % (2-4); Estimated Glomerular Filt Rate > 60 mL/min (>60); Globulin 3.2 g/dL (1.7-4.1); Glucose 92 mg/dL (70-100); HEMOLYSIS < 15 (0-50); Hematocrit 42.7 % (36-46); Hemoglobin 14.3 g/dL (12.0-16.0); Lipase 287 U/L (23-300); Lymphocytes Absolute Auto 2200 /uL (1100-4500); Lymphocytes Percent Auto 28.2 % (25-40); Mean Corpuscular HGB Conc 33.6 % (30-36); Mean Corpuscular Hemoglobin 28.8 PG (26-34); Mean Corpuscular Volume 85.6 fL (80-100); Monocytes Absolute Auto 500 /uL (0-900); Monocytes Percent Auto 6.5 % (3-14); Neutrophils Absolute Auto 5000 /uL (1500-7000); Platelet Count 238 X10^3/uL (150-400); Potassium 4.1 mmol/L (3.4-5.1); Red Blood Cell Count 4.99 X10^6/uL (4.0-5.2); Red Cell Distribution Width 13.4 % (11.6-14.8); Sodium 140 mmol/L (137-145); Total Protein 7.9 g/dL (6.3-8.2); White Blood Cell Count 7.9 X10^3/uL (4.5-11.0)
--- NOTE | 2021-10-05 17:42 | DI.CT.S_ITS ---
PROCEDURE: CT ABDOMEN PELVIS W CON INDICATIONS: RLQ pain, RUQ tenderness, TECHNIQUE: After the administration of oral and IV contrast, axial sections were acquired from the lung bases to the pubic symphysis. Coronal and sagittal reformats were performed. For radiation dose reduction, the following was used: automated exposure control, adjustment of mA and/or kV according to patient size. COMPARISON: None. FINDINGS: Image quality: Excellent. Lung bases: Unremarkable. Heart: No significant findings. ABDOMEN: Liver: Unremarkable. Gallbladder: Unremarkable. Biliary ducts: Unremarkable. Pancreas: Mild infiltrative change about the pancreas. Spleen: Unremarkable. Adrenal Glands: Unremarkable. Kidneys and Ureters: Unremarkable. Stomach and Bowel: No evidence of intestinal obstruction or inflammatory change. The appendix appears normal. Peritoneum: No abnormal intraperitoneal fluid. No free air. Ventral Wall: Fat containing periumbilical hernia. Abdominal Nodes: No retroperitoneal or mesenteric adenopathy by size criteria. Vessels: Aorta and inferior vena cava are normal in size. PELVIS: Pelvic Organs: Unremarkable. Bladder: Unremarkable. Pelvic Nodes: No enlarged lymph nodes. Miscellaneous: No inguinal hernias are seen. Bones: Unremarkable. IMPRESSION: 1. Mild acute pancreatitis. Consider correlation with amylase and lipase. Dictated by: Luis Manuel Jones M.D. on 10/05/2021 at 18:10 Approved by: Luis Manuel Jones M.D. on 10/05/2021 at 18:13
--- NOTE | 2021-10-05 17:49 | ED.ABDPAIN ---
HPI - Abdominal Pain <Yael Gonzalez, [facility] - Last Filed: 10/05/21 19:39> General Chief Complaint: Abdominal Pain Stated Complaint: abd pain refered by Laly Napier Time Seen by Provider: 10/05/21 13:57 Source: patient Mode of arrival: Ambulatory History of Present Illness HPI narrative: This is a 36-year-old female who presents to the emergency department and was sent over by Laly napier MD her primary care provider for evaluation of her epigastric, right upper and right lower quadrant pain which started 3 days ago. Patient states she has a history of GERD and use to take omeprazole but states it stopped working for her so she has switch to famotidine in takes 20 mg daily. She states her only abdominal surgeries RA tubal ligation and uterine ablation. Patient states that she was hospitalized as a child with abdominal pain and was told that she had a partially swollen appendix but denies ever having surgery on it. Patient denies nausea and vomiting, fever, chills, abnormal stool, dysuria, urinary frequency, urgency, back pain or flank pain. She states that she is hungry all of the time, pain is worse before she eats and after she eats. Patient has right lower quadrant tenderness to palpation, right upper quadrant tenderness over her gallbladder. Patient states that her pain became so bad today that she went to her primary care provider who sent her here to the emergency department to rule out appendicitis and cholecystitis. Related Data Home Medications Medication Instructions Recorded Confirmed loratadine 10 mg tablet (Claritin) 10 mg PO DAILY 10/23/18 10/05/21 botox for h/a SUBCUT 06/30/20 10/05/21 famotidine 20 mg tablet 20 mg PO BID 03/04/21 10/05/21 Previous Rx's Medication Instructions Recorded ondansetron HCl 4 mg tablet 4 mg PO DAILY PRN #90 tab 08/10/20 albuterol sulfate 90 mcg/actuation See Rx Instructions .ROUTE 02/19/21 aerosol inhaler .COMPLEX #18 g duloxetine 60 mg capsule,delayed 60 mg PO DAILY #180 cap 03/09/21 release buspirone 10 mg tablet 10 mg PO ONCE #90 tab 03/11/21 gabapentin 100 mg capsule 100 mg PO BID PRN #180 cap 09/08/21 lisdexamfetamine 20 mg capsule 20 mg PO QAM #90 cap 09/08/21 rimegepant 75 mg disintegrating 75 mg PO ONCE PRN #15 tab 09/08/21 tablet topiramate 25 mg tablet 37.5 mg PO DAILY #180 tab 09/08/21 hydrocodone 5 mg-acetaminophen 325 1 tab PO Q8H PRN #10 tab 10/05/21 mg tablet ondansetron 4 mg disintegrating 4 mg PO Q8H PRN #10 tab 10/05/21 tablet pantoprazole 20 mg tablet,delayed 20 mg PO DAILY #20 tab 10/05/21 release (Protonix) Allergies Allergy/AdvReac Type Severity Reaction Status Date / Time promethazine [From [facility]ENERGAN] Allergy Unknown Anxiety Verified 10/05/21 11:30 Review of Systems <SHIMON Hernandez - Last Filed: 10/05/21 19:39> Review of Systems Narrative: General: denies fever, chills, malaise, sweats, fatigue Head/Neck: denies headache, neck pain, dizziness Eyes: denies visual changes, eye pain Cardio: denies chest pain, palpitations, edema Respiratory: denies dyspnea, cough, orthopnea GI: Endorses epigastric, right lower quadrant and right upper quadrant abdominal pain, denies any nausea, vomiting, or diarrhea endorses gas feeling and constantly feeling hungry : denies dysuria, hematuria, urinary retention, frequency or incontinence MSK: denies joint pain, muscle weakness Skin: denies rash, itching, skin lesions or other Neuro: denies numbness, tingling Patient History <SHIMON Hernandez - Last Filed: 10/05/21 19:39> Medical History ADHD Ankle pain (~2016) Bacterial vaginosis Chicken pox (~1992) Chlamydia (~2003) Depression with anxiety (~2002) Dysmenorrhea Dyspareunia Endometritis External otitis of right ear Fibromyalgia Foot pain (~2016) Fractures (~2017) Habitual snoring Heavy menstrual period (~2017) Intractable migraine with aura Irregular menses Left ovarian cyst Malpositioned IUD Menorrhagia with regular cycle Migraine headache (~1989) Ovarian cyst (~2016) Painful menstrual periods (~2014) Panic attack PID (pelvic inflammatory disease) (~2017) Tenderness of female pelvic organs URI (upper respiratory infection) Urticaria Vaginal discharge Vaginal pain Varicose veins of right lower extremity Vascular insufficiency of extremity Vertigo (~2014) Viral illness Family History Father Hyperlipidemia Hypertension Mother Mental health problem Brother Developmental disability Brother Angelman syndrome Sister Mental health problem Grandmother Lung cancer Hyperlipidemia Hypertension Stroke Grandfather Diabetes mellitus History of heart disease Hyperlipidemia Hypertension Stroke Congestive heart failure Grandmother Cancer Diabetes mellitus Hyperlipidemia Hypertension Stroke Dementia History of kidney transplant Social History household members: children Smoking Status: Former smoker Tobacco: How many years used: 15 second hand exposure: No alcohol intake: current substance use type: marijuana Smoking Status: Former smoker tobacco type: vaping alcohol intake frequency: a few times a month Substance Use Type: marijuana Exam <SHIMON Hernandez - Last Filed: 10/05/21 19:39> Narrative Exam Narrative: Independently reviewed vitals signs and nursing notes. General: cooperative, comfortable, in no acute distress, well developed and well groomed Head: atraumatic, symmetrical facial expressions Neck: supple, atraumatic, without lymphadenopathy. Eyes: pupils equal round and reactive, EOMI, conjunctiva normal Nose: nares patent, no rhinorrhea Mouth/Throat: uvula midline, moist mucus membranes Cardiovascular: regular rate and rhythm, no peripheral edema, warm extremities Respiratory: normal effort, able to speak in complete sentences, no audible wheezing, stridor, or rales. No retractions or tachypnea. GI: abdomen soft,, obese, tenderness to right upper quadrant over her gallbladder and liver, tenderness over her right lower quadrant with rebound, nondistended, no masses, no exquisite tenderness with exam, without guarding or rebound. No CVA tenderness MSK: moves all extremities, ambulatory w/steady gait, neurovascularly intact, no weakness Skin: brisk capillary refill, no rash, no erythema Neuro: normal speech and cognition, A&O x3, normal tone Psych: mental status is grossly normal, congruent mood, normal affect, pleasant and cooperative Initial Vital Signs Initial Vital Signs: Vital Signs Temperature 98 F 10/05/21 11:27 Pulse Rate 77 10/05/21 11:27 Respiratory Rate 17 10/05/21 11:27 Blood Pressure 157/89 H 10/05/21 11:27 Pulse Oximetry 97 10/05/21 11:27 <Mona Ho DO - Last Filed: 10/06/21 07:16> Initial Vital Signs Initial Vital Signs: Vital Signs Temperature 98 F 10/05/21 11:27 Pulse Rate 77 10/05/21 11:27 Respiratory Rate 17 10/05/21 11:27 Blood Pressure 157/89 H 10/05/21 11:27 Pulse Oximetry 97 10/05/21 11:27 Course <SHIMON Hernandez - Last Filed: 10/05/21 19:39> Orders Ordered: Discontinued Medications Hydrocodone Bitart/Acetaminophen (Hydrocodone/Acet 5/325 Tablet) 1 tab PO NOW ONE Stop: 10/05/21 18:36 Last Admin: 10/05/21 19:32 Dose: 1 tab Documented by: [email or web address] Hydrocodone Bitart/Acetaminophen (Hydrocodone/Acet 5/325 Prepack) 1 bottle MISC SEEINSTR ONE Stop: 10/05/21 18:36 Last Admin: 10/05/21 19:31 Dose: 1 bottle Documented by: [email or web address] Ketorolac Tromethamine (Ketorolac 30 Mg/Ml Vial) 15 mg IV NOW ONE Stop: 10/05/21 17:43 Last Admin: 10/05/21 18:00 Dose: 15 mg Documented by: ALBINO Ondansetron HCl (Ondansetron 4 Mg Odt) 4 mg SL NOW ONE Stop: 10/05/21 18:36 Last Admin: 10/05/21 19:32 Dose: 4 mg Documented by: [email or web address] Pantoprazole Sodium (Pantoprazole 40 Mg Vial) 40 mg IV NOW ONE Stop: 10/05/21 17:43 Last Admin: 10/05/21 18:01 Dose: 40 mg Documented by: ALBINO Vital Signs Vital signs: Vital Signs - 8 hr 10/05/21 11:27 Temperature 98 F Pulse Rate 77 Respiratory Rate 17 Blood Pressure 157/89 H Pulse Oximetry 97 <Mona Ho DO - Last Filed: 10/06/21 07:16> Orders Ordered: Discontinued Medications Hydrocodone Bitart/Acetaminophen (Hydrocodone/Acet 5/325 Tablet) 1 tab PO NOW ONE Stop: 10/05/21 18:36 Last Admin: 10/05/21 19:32 Dose: 1 tab Documented by: [email or web address] Hydrocodone Bitart/Acetaminophen (Hydrocodone/Acet 5/325 Prepack) 1 bottle MISC SEEINSTR ONE Stop: 10/05/21 18:36 Last Admin: 10/05/21 19:31 Dose: 1 bottle Documented by: GABRIELLEMQ Ketorolac Tromethamine (Ketorolac 30 Mg/Ml Vial) 15 mg IV NOW ONE Stop: 10/05/21 17:43 Last Admin: 10/05/21 18:00 Dose: 15 mg Documented by: ALBINO Ondansetron HCl (Ondansetron 4 Mg Odt) 4 mg SL NOW ONE Stop: 10/05/21 18:36 Last Admin: 10/05/21 19:32 Dose: 4 mg Documented by: ZEINAB Pantoprazole Sodium (Pantoprazole 40 Mg Vial) 40 mg IV NOW ONE Stop: 10/05/21 17:43 Last Admin: 10/05/21 18:01 Dose: 40 mg Documented by: ALBINO Vital Signs Vital signs: Vital Signs - 8 hr 10/05/21 11:27 Temperature 98 F Pulse Rate 77 Respiratory Rate 17 Blood Pressure 157/89 H Pulse Oximetry 97 MDM - Abdominal Pain <SHIMON Hernandez - Last Filed: 10/05/21 19:39> Lab Data Result diagrams: 10/05/21 15:30 10/05/21 15:30 Labs: Lab Results 10/05/21 10/05/21 10/05/21 Range/Units 15:30 15:30 15:30 WBC 7.9 (4.5-11.0) X10^3/uL RBC 4.99 (4.0-5.2) X10^6/uL Hgb 14.3 (12.0-16.0) g/dL Hct 42.7 (36-46) % MCV 85.6 (80-100) fL MCH 28.8 (26-34) PG MCHC 33.6 (30-36) % RDW 13.4 (11.6-14.8) % Plt Count 238 (150-400) X10^3/uL Neut % (Auto) 63.0 (50-75) % Lymph % (Auto) 28.2 (25-40) % Baldwin % (Auto) 6.5 (3-14) % Eos % (Auto) 1.9 L (2-4) % Baso % (Auto) 0.4 (0-2) % Neut # (Auto) 5000 (9687-4841) /uL Lymph # (Auto) 2200 (1394-9871) /uL Baldwin # (Auto) 500 (0-900) /uL Eos # (Auto) 200 (0-450) /uL Baso # (Auto) 0 (0-100) /uL Sodium 140 (137-145) mmol/L Potassium 4.1 (3.4-5.1) mmol/L Chloride 105 (98-107) mmol/L Carbon Dioxide 27 (22-32) mmol/L BUN 14 (7-17) mg/dL Creatinine 0.66 (0.52-1.04) mg/dL Estimated GFR > 60 (>60) mL/min BUN/Creatinine Ratio 21.2 (6-22) Glucose 92 (70-100) mg/dL Calcium 9.1 (8.4-10.2) mg/dL Total Bilirubin 0.6 (0.2-1.3) mg/dL AST 22 (14-36) IU/L ALT 16 (<35) IU/L Alkaline Phosphatase 63 (38-126) U/L C-Reactive Protein 4.7 H (<1.0) mg/dL Total Protein 7.9 (6.3-8.2) g/dL Albumin 4.7 (3.5-5.0) g/dL Globulin 3.2 (1.7-4.1) g/dL Albumin/Globulin Ratio 1.5 (1.0-2.8) Lipase 287 (23-300) U/L Procalcitonin 0.05 (<0.5) ng/mL Imaging Data CT scan - abdomen/pelvis: Radiologist's Impression: PROCEDURE:? CT ABDOMEN PELVIS W CON ? INDICATIONS:? RLQ pain, RUQ tenderness, ? TECHNIQUE:? After the administration of oral and IV contrast, axial sections were acquired from the lung bases to the pubic symphysis.? Coronal and sagittal reformats were performed.? For radiation dose reduction, the following was used:? automated exposure control, adjustment of mA and/or kV according to patient size. ? COMPARISON:? None. ? FINDINGS:? Image quality:? Excellent.? ? Lung bases:? Unremarkable.? ? Heart:? No significant findings. ? ? ABDOMEN: Liver:? Unremarkable.? ? Gallbladder:? Unremarkable.? ? Biliary ducts:? Unremarkable.? ? Pancreas:? Mild infiltrative change about the pancreas.? ? Spleen:? Unremarkable.? ? Adrenal Glands:? Unremarkable.? ? Kidneys and Ureters:? Unremarkable.? ? ? Stomach and Bowel:? No evidence of intestinal obstruction or inflammatory change.? The appendix appears normal. Peritoneum:? No abnormal intraperitoneal fluid.? No free air.? ? Ventral Wall: ? Fat containing periumbilical hernia.? Abdominal Nodes:? No retroperitoneal or mesenteric adenopathy by size criteria.? Vessels:? Aorta and inferior vena cava are normal in size.? ? PELVIS: Pelvic Organs:? Unremarkable.? ? Bladder:? Unremarkable.? ? Pelvic Nodes: No enlarged lymph nodes.? Miscellaneous: No inguinal hernias are seen. ? ? ? Bones:? Unremarkable.? IMPRESSION:? ? 1. Mild acute pancreatitis.? Consider correlation with amylase and lipase. ? ? Dictated by: Luis Manuel Jones M.D. on 10/05/2021 at 18:10 ? ? Approved by: Luis Manuel Jones M.D. on 10/05/2021 at 18:13 ? MDM Narrative Medical decision making narrative: This is a 36-year-old female presents to the emergency department with abdominal pain after she saw her primary care provider tara napier who was concerned for appendicitis versus cholecystitis. Patient states her pain started 3 days ago, she has a history of GERD, has been taking famotidine after she states she took omeprazole for years it stopped working. She had an abdominal CT which shows mild acute pancreatitis, no other abnormalities were found in her abdomen or pelvis. Her lab work shows no leukocytosis, no left shift, electrolytes within normal ranges, creatinine 0.66, CRP is elevated at 4.7, lipase is 287, procalcitonin 0.05. Urine shows a specific gravity of 1.03, protein, 1+ bilirubin patient was tender across her upper abdomen to palpation including over the liver, gallbladder, pancreas. She had tenderness over right lower quadrant but it was not as much as her epigastrium. She was given 40 mg of Protonix, ketorolac, hydrocodone, and Zofran. Patient denies heavy alcohol use but states that she drinks occasionally. Patient states that she has not had a healthy diet recently and has been eating fatty meals due to her stress, this is likely causing her pancreatitis flare today. Patient denies any heavy alcohol binges recently, she states she has been taking famotidine, she was given Protonix today. She is encouraged to have a clear liquid diet for the next 2 days, avoid fatty meals, she was prescribed Protonix and encouraged to start taking this for the next 2 weeks, follow-up with her primary care provider tara napier, and have an endoscopy scheduled as an outpatient to rule out H pylori, or peptic ulcer disease. No peritoneal signs on abdominal exam. Patient remains p.o. tolerant. Serial abdominal exam without increase in abdominal pain. Given history and exam, low suspicion for acute abdominal process, such as acute cholecystitis, pancreatitis, perforated viscus, atypical appendicitis, colitis, diverticulitis or torsion. Extensive conversation about ER return precautions and need for close follow-up. Patient is appropriate and amenable to discharge home. Vital signs are stable on repeat examination is unremarkable. Patient has been informed of results. Patient has been given strict return to ER precautions for any new or worsening symptoms. Patient understands to follow up closely with outpatient providers as instructed. Patient understands plan and agrees to discharge home. All questions and concerns answered at this time. <Mona Ho, DO - Last Filed: 10/06/21 07:16> Lab Data Labs: Lab Results 10/05/21 10/05/21 10/05/21 Range/Units 15:30 15:30 15:30 WBC 7.9 (4.5-11.0) X10^3/uL RBC 4.99 (4.0-5.2) X10^6/uL Hgb 14.3 (12.0-16.0) g/dL Hct 42.7 (36-46) % MCV 85.6 (80-100) fL MCH 28.8 (26-34) PG MCHC 33.6 (30-36) % RDW 13.4 (11.6-14.8) % Plt Count 238 (150-400) X10^3/uL Neut % (Auto) 63.0 (50-75) % Lymph % (Auto) 28.2 (25-40) % Baldwin % (Auto) 6.5 (3-14) % Eos % (Auto) 1.9 L (2-4) % Baso % (Auto) 0.4 (0-2) % Neut # (Auto) 5000 (4181-9171) /uL Lymph # (Auto) 2200 (7870-7718) /uL Baldwin # (Auto) 500 (0-900) /uL Eos # (Auto) 200 (0-450) /uL Baso # (Auto) 0 (0-100) /uL Sodium 140 (137-145) mmol/L Potassium 4.1 (3.4-5.1) mmol/L Chloride 105 (98-107) mmol/L Carbon Dioxide 27 (22-32) mmol/L BUN 14 (7-17) mg/dL Creatinine 0.66 (0.52-1.04) mg/dL Estimated GFR > 60 (>60) mL/min BUN/Creatinine Ratio 21.2 (6-22) Glucose 92 (70-100) mg/dL Calcium 9.1 (8.4-10.2) mg/dL Total Bilirubin 0.6 (0.2-1.3) mg/dL AST 22 (14-36) IU/L ALT 16 (<35) IU/L Alkaline Phosphatase 63 (38-126) U/L C-Reactive Protein 4.7 H (<1.0) mg/dL Total Protein 7.9 (6.3-8.2) g/dL Albumin 4.7 (3.5-5.0) g/dL Globulin 3.2 (1.7-4.1) g/dL Albumin/Globulin Ratio 1.5 (1.0-2.8) Lipase 287 (23-300) U/L Procalcitonin 0.05 (<0.5) ng/mL Discharge Plan Departure Patient Disposition: Home Clinical Impression: Acute pancreatitis Qualifiers: Pancreatitis type: unspecified pancreatitis type Acute pancreatitis complication: unspecified Qualified Code(s): K85.90 - Acute pancreatitis without necrosis or infection, unspecified Abdominal pain Qualifiers: Abdominal location: right upper quadrant Qualified Code(s): R10.11 - Right upper quadrant pain Instructions: Acute Pancreatitis Activity Restrictions/Additional Instructions: *You have been diagnosed with acute pancreatitis. All of your other organs are unremarkable on CT scan without abnormality. Please stay hydrated stick to a clear liquid diet for the next 1-2 days to allow this inflammation to go down. Please take it easy over the next few days and allow yourself some time to rest. Use Tylenol and hydrocodone needed for your pain, please avoid ibuprofen for the next 1-2 weeks to allow stomach to heal. Please call [facility] office and see if you are able to schedule an appointment for an upper endoscopy consultation. You have a long history of GERD, and you have had persistent epigastric pain which is concerning for peptic ulcer disease which is sometimes due to H pylori. They would take biopsies during an endoscopy and be able to rule this out as well as any functional problems with your upper GI tract. Thank you for trusting us with your care, your lab work is reassuring that there is no systemic infection currently. Your CRP is elevated which is elevated with inflammation and this is likely from the pancreatitis. Please drink plenty of water, go home and rest, if you have worsening of your symptoms, vomiting, or if this escalates, please return for another evaluation. Please follow-up with Dr. napier, thank you for trusting us with your care, I hope that you start feeling better soon. *What to do: *Please continue to take your regular medications as directed. [ x] New medication prescriptions sent to your pharmacy: [[facility] ] [ ] New medication written as a paper prescription [ ] No new medications given *Please follow up with your primary care provider in 2-3 days, call for an appointment. Let them know you were seen in the Emergency Department and that we asked that you be seen for follow-up. We will electronically transmit a record of today's note if your PCP is in our system *If you do not have a primary care provider please contact [phone] to establish care with one of the [facility] primary care providers. *Return to Emergency Department if you should have any new, worsening or concerning symptoms, such as [fever greater than 101F, chills, worsening pain, persistent vomiting or other bothersome symptoms] Prescriptions: New pantoprazole [Protonix] 20 mg tablet,delayed release (DR/EC) 20 mg PO DAILY Qty: 20 0RF ondansetron 4 mg tablet,disintegrating 4 mg PO Q8H PRN (Reason: nausea and vomiting) Qty: 10 0RF hydrocodone-acetaminophen 5-325 mg tablet 1 tab PO Q8H PRN (Reason: pain) Qty: 10 0RF No Action ondansetron HCl 4 mg tablet 4 mg PO DAILY PRN (Reason: nausea and vomiting) Qty: 90 3RF Rx Instructions: Take 1 tablet by mouth daily as needed for nausea and vomiting albuterol sulfate 90 mcg/actuation HFA aerosol inhaler See Rx Instructions .ROUTE .COMPLEX Qty: 18 2RF Dose Instruction: INHALE 2 PUFFS EVERY 6 HOURS NEEDED FOR SHORTNESS OF BREATH Rx Instructions: INHALE 2 PUFFS EVERY 6 HOURS NEEDED FOR SHORTNESS OF BREATH famotidine 20 mg tablet 20 mg PO BID 0RF duloxetine 60 mg capsule,delayed release(DR/EC) 60 mg PO DAILY Qty: 180 3RF Rx Instructions: Take 1 tab by mouth daily for depression and anxiety topiramate 25 mg tablet 37.5 mg PO DAILY Qty: 180 3RF Rx Instructions: Take 1 1/2 tab daily for migraine prevention, increase up to 2 tabs/day as tolerated gabapentin 100 mg capsule 100 mg PO BID PRN (Reason: fibromyalgia pain/insomnia) Qty: 180 3RF Rx Instructions: Take 1 cap up to twice daily as needed for pain or insomnia rimegepant 75 mg tablet,disintegrating 75 mg PO ONCE PRN (Reason: migraine headache) Qty: 15 3RF Rx Instructions: Take 1 tab once daily as needed for migraine AYALA lisdexamfetamine 20 mg capsule 20 mg PO QAM Qty: 90 0RF Rx Instructions: Take 1 capsule each morning for ADHD symptoms. loratadine [Claritin] 10 mg tablet 10 mg PO DAILY 0RF botox for h/a SUBCUT 0RF buspirone 10 mg tablet 10 mg PO ONCE Qty: 90 3RF Rx Instructions: Take 1 tab at bedtime for anxiety Referrals: [facility] [Provider Group] - 3-5 days Laly Napier ARNP [Primary Care Provider] - <Mona Ho DO - Last Filed: 10/06/21 07:16> Cosign ED Attending Malature Attestation: I was immediately available in the department for consultation. Documentation has been reviewed. I agree with assessment and plan.
[2021-10-05] MEDS: KETOROLAC 30 MG/ML VIAL 15 MG IV (18:00)
[2021-10-05] MEDS: PANTOPRAZOLE 40 MG VIAL IV (18:01)
[2021-10-05 18:16] LABS: C-Reactive Protein Quant 4.7 mg/dL (<1.0)
[2021-10-05 18:18] VITALS: PULSE 74; O2SAT 99
[2021-10-05 18:19] VITALS: BP 119/73; PULSE 73; O2SAT 100
[2021-10-05 18:30] LABS: Procalcitonin 0.05 ng/mL (<0.5)
[2021-10-05] MEDS: HYDROCODONE/ACET 5/325 PREPACK 1 BOTTLE MISC (19:31)
[2021-10-05] MEDS: ONDANSETRON 4 MG ODT SL (19:32)
[2021-10-05] MEDS: HYDROCODONE/ACET 5/325 TABLET 1 TAB PO (19:32)
== END 2021-10-05 19:45 | disposition home or self-care (01) ==
PROVIDERS: Emergency Medicine; Emergency Provider Nurse Practitioner Critical Care Medicine; PCP Nurse Practitioner
DX: K85.90 Acute pancreatitis without necrosis or infection, unspecified (principal); R10.11 Right upper quadrant pain
CPT/HCPCS: 36415; 74177; 80053; 81002; 83690; 84145; 85025; 86140; 96374; 96375; 99284; C9113; J1885; Q9967

== ENCOUNTER → 2022-07-14 09:22 | Outpatient (CLI) | payer OTHER, MEDICAID, SELFPAY ==
--- NOTE | 2022-07-14 09:23 | DI.US.S_ITS ---
PROCEDURE: US PELVIC COMPLETE INDICATIONS: STATUS POST ABLATION CRAMPING TECHNIQUE: Real-time scanning was performed of the pelvic organs, with image documentation. Additional endovaginal scanning was necessary due to incomplete visualization of the adnexal and endometrial structures by transabdominal scanning. COMPARISON: [facility], US, US PELVIC COMPLETE, 02/24/2020, 3:00. FINDINGS: Uterus: Uterus is anteverted and normal in size at 7.6 x 3.4 x 3.2 cm. The myometrium is heterogeneous. No definite discrete uterine fibroid. Multiple echogenic foci with through acoustic shadowing are seen scattered in myometrium which may represent tiny calcified fibroids. The endometrium measures 3.6 mm combined thickness. No gross endometrial mass or fluid. Multiple nabothian cysts with prominent vascularity is seen in the cervix. Ovaries: The right ovary measures 2.6 x 2.4 x 2.6 cm, with a calculated ovarian volume of 8.6 cc. The left ovary measures 2.8 x 2.5 x 2.5 cm, with a calculated ovarian volume of 9.4 cc. The ovaries have a normal sonographic appearance. Greater than 12 follicles can be seen in each ovary. No adnexal masses are seen. Other: No pathologic free abdominal or pelvic fluid. IMPRESSION: 1. Small calcifications within myometrium which may represent sequelae from old injury versus tiny calcified fibroids. 2. No endometrial mass or fluid. Multiple nabothian cysts as above. 3. No solid appearing ovarian lesion. No evidence of ovarian torsion. Greater than 12 follicles are seen in each ovary which can be seen in the case of polycystic ovary syndrome suggest clinical correlation. We strive to produce accurate, complete, and clear reports of imaging services. To assist us in improving patient care, this report was composed using standard report templates and voice recognition software. Therefore, it may contain abnormal punctuation, insertions and/or omissions. Occasional wrong-word or sound-alike substitutions may occur. Though we review the report and make efforts to correct it, we do recommend that the report be read carefully in proper context to recognize any text inaccuracies. Dictated by: Laci Cr M.D. on 07/14/2022 at 11:43 Approved by: Laci Cr M.D. on 07/14/2022 at 11:46
== END ==
PROVIDERS: PCP Nurse Practitioner; Referring Provider Nurse Practitioner; Visit Provider Nurse Practitioner
DX: R10.2 Pelvic and perineal pain (principal); N88.8 Other specified noninflammatory disorders of cervix uteri
CPT/HCPCS: 76830; 76856; 93975

== ENCOUNTER 2022-10-21 06:20 | Day surgery (SDC) | payer OTHER, MEDICAID, SELFPAY ==
[2022-10-19 10:26] VITALS: BMI 50.4
[2022-10-21] VITALS (10 sets, daily range): BP systolic 115–153; BP diastolic 52–87; PULSE 60–88; RESP 10–17; TEMP 36.6–37.3; O2SAT 94–98; BMI 50.4
--- NOTE | 2022-10-21 | PATH_ITS ---
[facility] Accession Number: [id number] No. of containers..01 Tissue . 01 Material submitted: . uterus - BILATERAL FALLOPIAN TUBES AND UTERUS . 01 Diagnosis: Uterus and Bilateral Fallopian Tubes, Supracervical Hysterectomy and Bilateral Salpingectomy: Scant benign endometrium with features suggestive of prior treatment effect. Benign myometrium. Complete cross-section of fimbriated bilateral fallopian tubes with no significant alterations. MRV 11/02/2022 1452 Local . 01 Electronically signed: . Beata Patel MD, Pathologist NPI- [id number] . 01 Gross description: . The specimen is received in formalin labeled with the patient's name, , and bilateral fallopian tubes and uterus, and consists of an intact uterus (44 g, 4.5 cm SI, 6.0 cm ML, 3.4 cm AP) with two detached, unoriented, fimbriated fallopian tubes (5.6 x 0.9 cm and 6.0 x 0.8 cm, respectively) with no cervix or additional adnexa. The cervical margin is inked blue. The serosa is garcia and smooth with no evidence of hemorrhage or adhesion identified. Due to the lack of cervix and attached adnexa, no orientation can be determined. The endometrial cavity measures 1.2 cm from cornu to cornu and 1.2 cm in length with brown, velvety endometrium that averages 0.1 cm thick. The myometrium is garcia and trabecular with several smooth-walled cystic areas measuring up to 0.6 cm in greatest dimension filled with serous fluid. No discrete lesions or nodules are identified. The longer fallopian tube has garcia, smooth serosa with a cystic structure at the fimbriated end measuring 0.3 cm in greatest dimension, filled clear serous fluid. Sectioning reveals an unremarkable stellate lumen. The shorter fallopian tube has garcia, smooth serosa with no cystic structures identified. Sectioning reveals an unremarkable stellate lumen. Health Program Analyst sections are submitted as follows: A1-A2: Full-thickness sections. A3: Cystic areas in myometrium. A4: Serosa. A5: Longer fallopian tube to include one-half of bisected fimbriae and cross sections. A6: [place] fallopian tube to include one-half of bisected fimbriae and cross sections. ([id number]) . To evaluate endometrium- additional full thickness sections are submitted in cassettes A7-A10. ([id number]) /R 11/02/2022 [facility]2 Local . 01 Pathologist provided ICD-10: Z98.890 . 01 CPT . 485278 Specimen Comment: A courtesy copy of this report has been sent to [phone] Performed at: 01 [facility] [address] [place] [address], [place], [place] [id number] MD Abraham Bland MD Phone: [phone]
[2022-10-21] MEDS: LACTATED RINGERS 1,000 ML 100 ML IV ×2 (07:13→09:13)
--- NOTE | 2022-10-21 07:45 | PM.PREOP ---
Pre-operative Note COVID-19 Criteria for continued procedure: Delay expected to result in less-positive ultimate med/surg outcome Interval Note History & Physical reviewed/Exam performed by Physician: Yes Changes to H&P: No H&P completed within 30 days and has changed as indicated here:: 09/21/22
[2022-10-21] MEDS: CEFAZOLIN VIAL 3 GM in SODIUM CHLORIDE 0.9% 100 ML IV (08:10)
--- NOTE | 2022-10-21 08:39 | SUR.OPER ---
Lithotomy on padded OR bed. Michie Pad Positioner under torso. Head on pillow, arms padded and tucked at sides. Legs secured in padded yellow fins stirrups.
[2022-10-21] MEDS: BUPIVACAINE 0.5% (PF) 30 ML, EPINEPHrine 0.15 MG INJ (08:46)
[2022-10-21] MEDS: ROPIVACAINE 0.2% PF 2 MG/ML 20ML AMP 20 ML INJ (09:16)
[2022-10-21] MEDS: OXYCODONE/ACETAMINOPHEN 5/325 TABLET 1 TAB PO ×2 (10:00→10:27)
[2022-10-21] MEDS: fentaNYL 100 MCG/2 ML INJ IV ×2 (10:00→10:08)
--- NOTE | 2022-10-21 10:08 | P.OP_ITS ---
Operative Date/Time/Diagnoses Date of procedure: 10/21/22 Time of procedure: 10:08 Pre-op diagnosis: Post ablation syndrome Severe dysmenorrhea Post-op diagnosis: same Procedure & Clinicians Procedure: Procedures Operation Date: 10/21/22 07:45 Actual Procedure Side Surgeon p Laparoscopic Supracervical Hysterectomy w. bilateral salpingectomy Annalee Neri MD Indications: Severe dysmenorrhea Post ablation syndrome Surgeon: Annalee Neri Mirror Machine Feeder: Sachi Moffett Operative Notes Findings: 6 week size anteverted uterus Normal ovaries Tubes status post ligation Normal liver Normal appendix Closure Type: primary Specimen(s): left tube, right tube and uterus Applied: catheter (Removed at the end of the case) Estimated blood loss (mL): 50 Blood products transfused: none Procedure in detail: The patient was taken to the operating room where she was placed in the dorsal supine position. After adequate general endotracheal anesthesia was achieved, she was placed in the dorsal lithotomy position, and prepped and draped in the usual sterile fashion. A timeout was performed. A bivalve speculum was placed into the vagina and the anterior lip of the cervix grasped with a single-tooth tenaculum. The cervical os was sequentially dilated until the ZUMI uterine manipulator could pass easily into the endometrial cavity. The single-tooth tenaculum was removed from the anterior lip of the cervix, and the bivalve speculum was removed from the vagina. Attention was then turned to the abdomen where 6 mL of half percent Marcaine with epinephrine were injected in the umbilical fold. A 5 mm incision was made. An attempt was made to place the verees needlem but preperitoneal fat was deep. A Hasan trocar was placed after the incision was extended to 12mm and the fascia identified. The fascia was nicked in the midline and extended bilaterally. The peritoneum was entered with a hemostat. The Hasan was placed. The abdomen was insufflated. 2 other incisions were made 4 cm lateral to the umbilicus after 5 mL of half percent Marcaine with epinephrine were injected. These were 5 mm incisions. Two, long 5 mm trocars were placed under direct visualization. The right tube was grasped with an atraumatic grasper. Using the Powerseal, the mesosalpinx was cauterized and cut all the way down to the cornua of the uterus. The cornua of the uterus was then grasped with an atraumatic grasper. The utero-ovarian ligaments were cauterized and cut. The round ligament and broad ligament were cauterized and cut with the Powerseal. Hemostasis was achieved. The bladder flap was created using the plasma kinetic with cautery and cut residential across. The uterine arteries on the right side were extensively cauterized. All of this was repeated on the left side. The remainder of the bladder flap was created using the Powerseal, and the bladder taken down off the lower uterine segment and cervix. Using the Linaloop, the cervix was amputated from the uterus 2 cm above the uterosacral ligaments, after the ZUMI uterine manipulator was removed from the uterus and a moistened sponge stick was placed in the vagina. Hemostasis was achieved. 6 mL of half percent Marcaine with epinephrine were injected above the pubic symphysis. A 12mm incision was made. A 12 mm trocar was placed under direct visualization. The trocar was removed. An Endobag was placed through the suprapubic incision and the uterus and tubes were placed into the Endobag. The uterus was grasped with a Brian. An Nigel was placed into the endobag. The uterus was morcellated in approximately 3 pieces. The Endobag and Nigel were removed from the peritoneal cavity. The abdomen was reinsufflated. The pelvis was copiously irrigated with warm normal saline. No bleeding was noted. 20 mL of 0.2% ropivacaine were placed over the pelvic pedicles. The instruments were removed from the abdomen. The CO2 was allowed to escape. The suprapubic incision was closed on the fascia with 0 Vicryl. All of the incisions were closed with 4-0 Biosyn in a subcuticular fashion. Steri strips and Allevyn dressings were placed over the incisions. The moistened sponge stick was removed from the vagina. Sponge, lap, and instrument counts were correct x 2. The patient tolerated the procedure well, was taken to PACU in stable condition. Complications: none Post-operative Condition: stable Disposition: PACU Plan for aftercare: Home after recovery
== END 2022-10-21 11:32 | disposition home or self-care (01) ==
LOC: OR 06:21 → AC 06:22
PROVIDERS: PCP Nurse Practitioner; Referring Provider Obstetrics & Gynecology; Visit Provider Obstetrics & Gynecology
PROC: 0UT94ZL Resection of Uterus, Supracervical, Percutaneous Endoscopic Approach (ICD-10-PCS; CPT 58542; principal; 2022-10-21 07:45)
DX: N99.85 Post endometrial ablation syndrome (principal); N94.6 Dysmenorrhea, unspecified
CPT/HCPCS: 58542; J0171; J0690; J1100; J1885; J2250; J2405; J2704; J2795; J3010; J3490

== ENCOUNTER → 2023-06-12 16:18 | Outpatient (CLI) | payer OTHER, MEDICAID, SELFPAY ==
[2023-06-12 19:19] LABS: Influenza A - CEPHEID Flu A NEGATIVE (NEGATIVE); Influenza B - CEPHEID Flu B NEGATIVE (NEGATIVE); Respiratory Syncytial Virus Negative (Negative)
[2023-06-12 19:29] LABS: COVID-19 CEPHEID 4-PLEX PCR Negative (Negative)
== END ==
PROVIDERS: PCP Nurse Practitioner; Visit Provider Physician Assistant
DX: R05.1 Acute cough (principal); J02.9 Acute pharyngitis, unspecified
CPT/HCPCS: 0241U; 87070; 87147; 87880

== ENCOUNTER 2023-07-07 19:19 | Emergency (ER) | payer OTHER, MEDICAID, SELFPAY ==
[2023-07-07 19:26] VITALS: BP 126/84; PULSE 64; RESP 20; TEMP 36.7; O2SAT 100; BMI 49.8
[2023-07-07] MEDS: SODIUM CHLORIDE 0.9% 1,000 ML 1000 ML IV (20:08)
[2023-07-07] MEDS: METOCLOPRAMIDE 10 MG/2 ML INJ IV (20:12)
[2023-07-07] MEDS: diphenhydrAMINE 50 MG/ML VIAL 25 MG IV (20:18)
[2023-07-07] MEDS: ACETAMINOPHEN IV 1,000 MG/100 ML VIAL 400 MG IV (20:23)
--- NOTE | 2023-07-07 20:45 | ED.HA ---
HPI - Headache General Chief Complaint: Headache Stated Complaint: states migraine Time Seen by Provider: 07/07/23 19:43 Source: patient Mode of arrival: Family Vehicle Limitations: no limitations History of Present Illness HPI Narrative: Patient is a 38-year-old female. Has a history of migraine headaches. Has been on migraine medicines in the past. Most of them do not work for her. There was 1 medication that was working for her however insurance stopped covering the medication. She was not see a headache specialist. She was here for evaluation of the headache has been going on the past 3 days. She states it feels like her prior migraines just worse than normal. He is in the front and radiates to the back. No other neurologic symptoms. No fevers. No trauma. Has tried Tylenol and ibuprofen without improvement. Related Data Home Medications Medication Instructions Recorded Confirmed loratadine 10 mg tablet (Claritin) 10 mg PO DAILY 10/23/18 06/12/23 Previous Rx's Medication Instructions Recorded topiramate 25 mg tablet 37.5 mg (1.5 x 25 mg) PO DAILY 09/08/21 #180 tabs cholecalciferol (vitamin D3) 50 50 mcg PO DAILY #90 caps 05/03/22 mcg (2,000 unit) capsule clobetasol 0.05 % topical ointment 1 applic topical QAM AND QPM PRN 05/03/22 itching #15 grams albuterol sulfate 90 mcg/actuation See Rx Instructions .Route 06/02/22 aerosol inhaler .COMPLEX #18 grams pantoprazole 20 mg tablet,delayed 20 mg PO DAILY gerd #90 tabs 09/01/22 release (Protonix) erenumab-aooe 70 mg/mL 70 mg SUBCUT QMONTH #1 mL 09/29/22 subcutaneous auto-injector gabapentin 100 mg capsule 100 mg PO BID PRN fibromyalgia 10/03/22 pain/insomnia #180 caps rimegepant 75 mg disintegrating 75 mg PO ONCE PRN migraine 10/04/22 tablet headache #15 tabs oxycodone 5 mg tablet 5 mg PO Q4H PRN pain #20 tabs 10/21/22 atomoxetine 40 mg capsule 80 mg (2 x 40 mg) PO QAM #180 caps 10/27/22 ondansetron 4 mg disintegrating See Rx Instructions .Route 11/14/22 tablet .COMPLEX #30 tabs galcanezumab-gnlm 120 mg/mL 120 mg SUBCUT QMONTH #3 mL 11/21/22 subcutaneous pen injector cyclobenzaprine 5 mg tablet 5 mg PO TID PRN muscle spasm #15 11/24/22 tabs amoxicillin 500 mg capsule 500 mg PO BID #20 caps 06/14/23 Allergies Allergy/AdvReac Type Severity Reaction Status Date / Time doxycycline Allergy Severe Hives Verified 06/12/23 16:17 promethazine [From PHENERGAN] Allergy Unknown Anxiety Verified 06/12/23 16:17 lisdexamfetamine AdvReac Severe pancreatiti Verified 06/12/23 16:17 [From Vyvanse] s Review of Systems Constitutional Constitutional: Reports system reviewed and no additional complaints, except as documented Eyes Eyes: Reports system reviewed and no additional complaints, except as documented ENT Ears, Nose, Mouth, and Throat: Reports system reviewed and no additional complaints, except as documented Neurologic Neurologic: Reports system reviewed and no additional complaints, except as documented Patient History Medical History Seasonal affective disorder Sleep apnea in adult Sleep apnea Fibromyalgia ADHD Vascular insufficiency of extremity Varicose veins of right lower extremity Habitual snoring Dyspareunia Dysmenorrhea Menorrhagia with regular cycle Intractable migraine with aura Irregular menses Tenderness of female pelvic organs Vaginal pain Vaginal discharge Bacterial vaginosis Fractures (~2017) Foot pain (~2016) Ankle pain (~2017) Chicken pox (~1992) Vertigo (~2014) PID (pelvic inflammatory disease) (~2016) Painful menstrual periods (~2014) Ovarian cyst (~2016) Heavy menstrual period (~2017) Chlamydia (~2003) Panic attack Depression with anxiety (~2002) Migraine headache (~1989) Malpositioned IUD Left ovarian cyst Endometritis External otitis of right ear Urticaria URI (upper respiratory infection) Viral illness Surgical History History of hysterectomy for benign disease H/O tubal ligation [place] teeth extracted History of endometrial ablation Family History Father Hyperlipidemia Hypertension Mother Mental health problem Brother Developmental disability Brother Angelman syndrome Sister Mental health problem Grandmother Lung cancer Hyperlipidemia Hypertension Stroke Grandfather Diabetes mellitus History of heart disease Hyperlipidemia Hypertension Stroke Congestive heart failure Grandmother Cancer Diabetes mellitus Hyperlipidemia Hypertension Stroke Dementia History of kidney transplant Social History household members: children Smoking Status: Former smoker Tobacco: How many years used: 15 second hand exposure: No alcohol intake: current substance use type: marijuana Smoking Status: Former smoker tobacco type: vaping alcohol intake frequency: a few times a month Substance Use Type: marijuana Exam Initial Vital Signs Initial Vital Signs: Vital Signs Temperature 98.0 F 07/07/23 19:26 Pulse Rate 64 07/07/23 19:26 Respiratory Rate 20 07/07/23 19:26 Blood Pressure 126/84 07/07/23 19:26 Pulse Oximetry 100 07/07/23 19:26 Oxygen Delivery Method Room Air 07/07/23 19:26 Const General: cooperative, comfortable and No ill appearing HENMT Head: normal to inspection and normocephalic Resp Effort & Inspection: normal respiratory effort Cardio Rate: regular rate Neuro General: patient alert, patient awake, patient oriented x3 and moves all extremities Cognition: normal cognition Speech: speech normal Motor: muscle tone normal throughout Course Orders Ordered: Discontinued Medications Diphenhydramine HCl (Diphenhydramine 50 Mg/Ml Vial) 25 mg IV NOW ONE Stop: 07/07/23 19:45 Last Admin: 07/07/23 20:18 Dose: 25 mg Documented By: JIAME Acetaminophen (Ofirmev) 1,000 mg in 100 mls @ 400 mls/hr IV NOW ONE Stop: 07/07/23 19:58 Last Infusion: 07/07/23 20:38 Dose: Infused Documented By: Admin: 07/07/23 20:23 Dose: 400 mls/hr Documented By: JAIME Sodium Chloride (Normal Saline 0.9%) 1,000 mls @ 1,000 mls/hr IV BOLUS ONE Stop: 07/07/23 20:44 Last Infusion: 07/07/23 21:08 Dose: Infused Documented By: Admin: 07/07/23 20:08 Dose: 1,000 mls/hr Documented By: JAIME Metoclopramide HCl (Metoclopramide 10 Mg/2 Ml Inj) 10 mg IV NOW ONE Stop: 07/07/23 19:45 Last Admin: 07/07/23 20:12 Dose: 10 mg Documented By: JAIME Morphine Sulfate (Morphine 4 Mg/Ml Inj) 4 mg IV NOW ONE Stop: 07/07/23 22:11 Last Admin: 07/07/23 22:25 Dose: 4 mg Documented By: JAIME Vital Signs Vital signs: Vital Signs - 8 hr 07/07/23 19:26 07/07/23 22:00 Temperature 98.0 F Pulse Rate 64 52 L Respiratory Rate 20 18 Blood Pressure 126/84 138/67 Pulse Oximetry 100 97 Oxygen Delivery Method Room Air Room Air MDM - Headache MDM Narrative Medical decision making narrative: Patient states this does feel like her prior headaches but just worse. It feels the same in character. Gradual onset. No fevers. Low suspicion for meningitis. Low suspicion for intracranial hemorrhage. Will hold on radiologic studies. She states she feels much better after medications here in the ER. Patient states she feels well enough to go home. She was given return precautions. She expressed understanding and agreement. Discharge Plan Departure Patient Disposition: Home Clinical Impression: Headache Instructions: DI for Headache Activity Restrictions/Additional Instructions: Continue to take all of your medications as directed. Contact your primary care doctor for a follow-up. Return to the emergency department for new or worsening symptoms. Prescriptions: No Action cyclobenzaprine 5 mg tablet 5 mg PO TID PRN (Reason: muscle spasm) Qty: 15 0RF gabapentin 100 mg capsule 100 mg PO BID PRN (Reason: fibromyalgia pain/insomnia) Qty: 180 3RF Rx Instructions: Take 1 cap up to twice daily as needed for pain or insomnia rimegepant 75 mg tablet,disintegrating 75 mg PO ONCE PRN (Reason: migraine headache) Qty: 15 3RF Rx Instructions: Take 1 tab once daily as needed for migraine AYALA ondansetron 4 mg tablet,disintegrating See Rx Instructions .ROUTE .COMPLEX Qty: 30 3RF Dose Instruction: DISSOLVE 1 TABLET ON THE TONGUE EVERY 8 HOURS NEEDED FOR NAUSEA OR VOMITING Rx Instructions: DISSOLVE 1 TABLET ON THE TONGUE EVERY 8 HOURS NEEDED FOR NAUSEA OR VOMITING galcanezumab-gnlm 120 mg/mL pen injector 120 mg SUBCUT QMONTH Qty: 3 3RF amoxicillin 500 mg capsule 500 mg PO BID Qty: 20 0RF topiramate 25 mg tablet 37.5 mg PO DAILY Qty: 180 3RF Rx Instructions: Take 1 1/2 tab daily for migraine prevention, increase up to 2 tabs/day as tolerated pantoprazole [Protonix] 20 mg tablet,delayed release (DR/EC) 20 mg PO DAILY Qty: 90 3RF Rx Instructions: Take 1 tab by mouth daily erenumab-aooe 70 mg/mL auto-injector 70 mg SUBCUT QMONTH Qty: 1 3RF Rx Instructions: Inject SQ monthly for migraine preventative. atomoxetine 40 mg capsule 80 mg PO QAM Qty: 180 3RF loratadine [Claritin] 10 mg tablet 10 mg PO DAILY cholecalciferol (vitamin D3) 50 mcg (2,000 unit) capsule 50 mcg PO DAILY Qty: 90 2RF Rx Instructions: Take 1 capsule daily for Seasonal Affective Disorder clobetasol 0.05 % ointment 1 applic topical QAM AND QPM PRN (Reason: itching) Qty: 15 1RF Rx Instructions: Apply to itchy ears bilateraly up to twice per day as needed albuterol sulfate 90 mcg/actuation HFA aerosol inhaler See Rx Instructions .ROUTE .COMPLEX Qty: 18 2RF Dose Instruction: INHALE 2 PUFFS EVERY 6 HOURS NEEDED FOR SHORTNESS OF BREATH Rx Instructions: INHALE 2 PUFFS EVERY 6 HOURS NEEDED FOR SHORTNESS OF BREATH oxycodone 5 mg tablet 5 mg PO Q4H PRN (Reason: pain) Qty: 20 0RF Referrals: Laly Napier ARNP [Primary Care Provider] - Stand Alone Forms: Patient Portal/API
[2023-07-07 22:00] VITALS: BP 138/67; PULSE 52; RESP 18; O2SAT 97
[2023-07-07] MEDS: MORPHINE 4 MG/ML INJ IV (22:25)
[2023-07-07 23:20] VITALS: BP 124/76; PULSE 54; RESP 16; O2SAT 98
== END 2023-07-07 23:20 | disposition home or self-care (01) ==
PROVIDERS: Emergency Provider Emergency Medicine; PCP Nurse Practitioner
DX: R51.9 Headache, unspecified (principal)
CPT/HCPCS: 96374; 96375; 99283; J0136; J1200; J2270; J2765